=== PATIENT | male | born 1950 | race Caucasian/White ===

== ENCOUNTER → 2016-03-30 | Outpatient (CLI) | payer MEDICARE ==
[2016-03-30 16:25] LABS: Basophils % (A) 1 %; CH 28.7; CHCM 31.6; Eosinophils # (A) 0.2 k/uL (0-0.7); Eosinophils % (A) 4 %; HCT 40.8 % (39.0-53.0); HDW 2.46; Luc # (Auto) 0.17; Luc % (Auto) 3; Lymphocytes # (A) 1.7 k/uL (1.0-4.8); Lymphocytes % (A) 27 %; MCH 29.1 pg (25.0-35.0); MCHC 31.9 g/dL (31.0-37.0); MCV 91.2 fL (80.0-100.0); Mean Platelet Volume 6.7; Monocytes # (A) 0.5 k/uL (0-1.0); Monocytes % (A) 7 %; Neutrophils # (A) 3.7 k/uL (1.3-7.7); Neutrophils % (A) 59 %; RBC 4.48 m/uL (4.30-5.90); RDW 14.2 % (11.5-15.5); WBC 6.2 k/uL (3.8-10.6); WBC (Perox) 6.43
[2016-03-30 16:33] LABS: INR 1.1 (<1.1); Partial Thromboplastin Time 22.7 sec (22.0-30.0); Potassium 4.2 mmol/L (3.5-5.1); Prothrombin Time 10.9 sec (9.0-12.0)
== END | disposition home or self-care (01) ==
LOC: LABPAT 15:57
PROVIDERS: ATTEND Orthopaedic Surgery
DX: Z01.812 Encounter for preprocedural laboratory examination (principal); Z01.810 Encounter for preprocedural cardiovascular examination
CPT/HCPCS: 80051; 85025; 85610; 85730; 86850; 86900; 86901; 87070

== ENCOUNTER 2016-04-12 08:27 | Inpatient (IN) | payer MEDICARE ==
[2016-04-08 16:29] VITALS: BMI 36.9
--- NOTE | 2016-04-11 12:12 | HP ---
DATE OF ADMISSION: 04/12/2016 Anselmo Lunsford is a 65-year-old patient seen with symptomatic left hip osteoarthritis. After having treatment options discussed, he elected to proceed with left total hip arthroplasty. Consent regarding the procedure was obtained. Medical clearance has been recently provided for her recent surgery by Dr. Rivera. Past medical history is asthma, hypertension, insulin-dependent diabetes, hyperlipidemia. PAST SURGICAL HISTORY: Right total knee arthroplasty. DAILY MEDICATIONS: Lantus insulin, hydrochlorothiazide, aspirin, metoprolol, atorvastatin, Benicar. ALLERGIES: PENICILLIN. SOCIAL HISTORY: Patient denies tobacco use. Physical evaluation of the left hip: Range of motion is very limited with severe pain. There is diffuse tenderness about the hip girdle. There is diffuse weakness about the hip girdle. Impingement sign is positive. Straight-leg raise is negative. Left lower extremity is approximately 1 inch shorter than the right. Distal neurovascular exam is intact. Radiographs of the left hip revealed severe osteoarthritic changes. IMPRESSION: Left hip osteoarthritis. PLAN: Direct anterior left total hip arthroplasty.
[~2016-04-12 08:27] MED LIST: ACETAMINOPHEN TAB 500 MG TAB PO ONE; DEXAMETHASONE SOD PHOSPHATE 10 MG/ML 1 ML VIAL IV ONE; HYDROmorphone 1 MG/ML 1 ML SYRINGE IVP PRN; LACTATED RINGERS 1,000 ML IV SCH; MELOXICAM 7.5 MG TAB PO ONE; MIDAZOLAM 2 MG/2 ML VIAL IV PRN; ONDANSETRON 4 MG/2 ML VIAL IVP ONE; TRANEXAMIC ACID 1,000 MG in SODIUM CHLORIDE 0.9% 100 ML IVPB ONE; ceFAZolin 3 GM in SODIUM CHLORIDE 0.9% 100 ML IVPB ONE
[2016-04-12] MEDS ORDERED: LIDOCAINE 1% 20 ML VIAL (10MG/ML) FOR IV START INTRADERMA ONE (09:03)
[2016-04-12 09:10] LABS: Glucose,Whole Blood 131 mg/dL (75-99)
[2016-04-12] MEDS ORDERED: ROPIVACAINE 246.25 MG, EPINEPHrine 0.5 MG, KETOROLAC 30 MG, cloNIDine HCL/PF 80 MCG, WA... MISCELLANE ONE ×5 (10:02)
[2016-04-12] MEDS ORDERED: PHENYLEPHRINE-0.9% NACL SYG 1 MG/10 ML SYRINGE ONE (10:50)
[2016-04-12] MEDS ORDERED: ePHEDrine 50 MG/ML 1 ML AMP ONE (10:50)
[2016-04-12] MEDS ORDERED: fentaNYL (PF) 50 MCG/ML 2 ML AMP ONE (10:50)
[2016-04-12] MEDS ORDERED: MIDAZOLAM 2 MG/2 ML VIAL ONE (10:50)
[2016-04-12] MEDS ORDERED: PROPOFOL 10 MG/ML 20 ML VIAL IV ONE (10:50)
[2016-04-12] MEDS ORDERED: CLINDAMYCIN 1,800 MG in SODIUM CHLORIDE 0.9% IRRIGATIO 3,000 ML IRRIGATION ONE (11:15)
[2016-04-12] MEDS ORDERED: LACTATED RINGERS 1,000 ML IV ONE ×2 (12:10→12:40)
--- NOTE | 2016-04-12 13:14 | FL ---
Fluoroscopy HISTORY: Pain 26 seconds fluoroscopy time supplied to the referring clinician. 1 intraoperative C-arm images docum ent the procedure. See dictated report from orthopedic surgery.
--- NOTE | 2016-04-12 13:14 | XR ---
Limited left hip HISTORY: Anterior hip replacement Single intraoperative C-arm image documents the procedure
[2016-04-12] MEDS ORDERED: NALOXONE 0.4 MG/ML 1 ML VIAL IV PRN (13:32)
[2016-04-12] MEDS ORDERED: ONDANSETRON 4 MG/2 ML VIAL IVP PRN (13:32)
[2016-04-12] MEDS ORDERED: HYDROcodone/APAP 7.5-325MG 1 EACH TAB PO PRN (13:32)
[2016-04-12] MEDS ORDERED: HYDROmorphone 1 MG/ML 1 ML SYRINGE IVP PRN ×3 (13:32)
--- NOTE | 2016-04-12 13:32 | P.OP ---
Date of Procedure: 04/12/16 (Left hip osteoarthritis) Preoperative Diagnosis: Left hip osteoarthritis Postoperative Diagnosis: Left hip osteoarthritis Procedure(s) Performed: Direct anterior left total hip arthroplasty Implants: 1. Depuy Corail cementless femoral stem KLA size 12 high offset collared 2. Depuy pinnacle acetabular shell 62 mm 3. Depuy pinnacle polyethylene acetabular liner 36 mm ID - 62 mm OD 4. Depuy metallic femoral head 36 mm -2 Anesthesia: local, spinal Surgeon: Javier Garvey Director Payment #1: Rodolfo Horta Estimated Blood Loss (ml): 450 Pathology: other (Femoral head) Condition: stable Disposition: PACU Indications for Procedure: 65-year-old patient seen with left hip osteoarthritis. After having treatment options discussed, he elected to proceed with left total hip arthroplasty. Operative Findings: See description of procedure Description of Procedure: The patient was taken to the operative suite. Patient underwent a spinal anesthetic by the department of anesthesia. Patient was then transferred to the [place] table. Patient was given preoperative IV antibiotics and TXA. Both lower extremities were placed in standard leg spars. The hip was then prepped and draped in the normal sterile orthopedic fashion. A standard anterior incision was made beginning 3 cm lateral and 1 cm distal to the ASIS extending 10 cm. Dissection was then carried down through the subcutaneous soft tissues down to the fascia overlying the tensor fascia mathew. An incision was now made through the fascia. Careful dissection was taken down exposing the tensor fascia mathew muscle. A Cobra retractor was now placed along the medial femoral neck and a second one along the lateral femoral neck. The venous circumflex vessels were now identified, cauterized and clipped. We identified the anterior hip capsule. An incision was made through the hip capsule along the lateral border. Tag sutures were then placed along the anterior capsule and lateral capsule. We then performed a capsulotomy. Retractors were now placed around the femoral neck itself. A Cobra retractor was now placed along the anterior acetabulum. Good exposure was now noted of the femoral head/neck complex. Residual labrum was debrided out. We placed the extremity into 3 turns of fine traction. We were then able to introduce a skid in between the femoral head and acetabulum. A placed a awl into the femoral head. We took 2 turns of traction off the extremity. Rotation was now released. The femoral head was then dislocated without difficulty. Additional releasing was performed of the capsule. The head was then reduced. All traction was released. A femoral neck cut was now made with a sagittal saw. It was completed with an osteotome at the lateral neck area. The femoral head was now removed without difficulty. There was severe osteoarthritis of the femoral head and acetabulum. The extremity was now rotated to 60 of external rotation. It was locked in position. Residual labrum was now debrided out. Serial reaming was performed of the acetabulum. Once we reached the appropriate size and a trial was position and fit nicely. The appropriate size was now chosen opened and made available. The wound was irrigated with pulse lavage mechanical irrigation. It was introduced into the acetabulum without difficulty. The C-arm/fluoroscopy was now brought into the operative field. We made sure we had a true AP pelvic view. We now under direct C-arm/ fluoroscopy introduced into the acetabular component with appropriate version and inclination. It was well seated and stable. The C-arm was pulled back. An appropriate liner was introduced and clicked into position. It was felt to be stable. At this point retractors were removed. The extremity was now placed into 120 external rotation with no traction. The leg was now dropped to the ground and adducted. Appropriate retractors were now positioned along the proximal femur. We also placed our femoral look into position. Additional capsular releasing was performed to gain access to the proximal femur. We now used a box osteotome. A canal finder was now utilized. Serial broaching was now performed until we reached the appropriate size with good overall rotational stability. Appropriate calcar planing was performed. A trial head/ neck was placed into position. The hip was now reduced. The C-arm/fluoroscopy was brought back into the operative field. A spot film was obtained of the nonoperative hip. A spot film was obtained of the trial components. Overlays were performed, we noted good overall alignment and positioning for determining leg length. The C-arm/fluoroscopy was pulled back. Retractors were repositioned and the hip was dislocated. The leg was again taken down to the ground and adducted. Appropriate retractors were repositioned as well as the femoral hook. All trial components were removed. The wound was irrigated with pulse lavage mechanical irrigation. The deep soft tissues were infiltrated local analgesic. The femoral implant was opened along with the femoral head. The femoral implant was introduced with good purchase and fixation noted. The femoral head was introduced with good positioning and fixation noted. Retractors were now removed. The hip was now reduced. There appeared be good positioning of the hip. This was confirmed on fluoroscopy and spot images were obtained to document this. A second gram of TXA was given. Bipolar cautery had been utilized intermittently through the procedure for hemostasis. The wound was irrigated copiously with pulse lavage mechanical irrigation. Superficial soft tissues with local analgesic. The fascia was repaired with Vicryl suture. The subcutaneous soft tissues were repaired in layers with Vicryl suture. The skin was approximated with pernio/Dermabond. Sterile dressings were applied. Patient was then awakened, transferred to a bed and taken to recovery in stable condition. Franki ORELLANA assisted with the procedure.
[2016-04-12] MEDS: LACTATED RINGERS 1,000 ML IV SCH ×2 (14:06→21:44)
[2016-04-12 16:25] LABS: Glucose,Whole Blood 205 mg/dL (75-99)
--- NOTE | 2016-04-12 16:44 | P.CONS ---
History of Present Illness - Reason for Consult Consult date: 04/12/16 Medical management - Chief Complaint Direct anterior total hip arthroplasty on the left - History of Present Illness Patient is 65-year-old male well-known to my practice who presented to 2016 with for elective total hip arthroplasty. Patient has a previous history of diabetes, hypertension and mild benign prostatic enlargement patient also recently underwent a believe a right total knee As of this time he is resting comfortably in the bed. In no pain. He does have what looks like a femoral block. His blood pressure at this time was 121/ 78 his initial glucose screen was 131 and postoperatively was 205 Review of Systems Constitutional: Reports as per HPI Cardiovascular: Reports as per HPI Respiratory: Reports as per HPI Gastrointestinal: Reports as per HPI Genitourinary: Reports as per HPI Musculoskeletal: Reports as per HPI Past Medical History Past Medical History: Diabetes Mellitus, Hyperlipidemia, Hypertension Additional Past Medical History / Comment(s): chronic cough, HAS HAD A SHINGLES VACCINE 1-2 YEARS AGO History of Any Multi-Drug Resistant Organisms: None Reported Past Surgical History: Hernia Repair, Joint Replacement, Orthopedic Surgery Additional Past Surgical History / Comment(s): rt knee meniscus repair, left leg orif with screws, 12-22-15 total rt knee Past Anesthesia/Blood Transfusion Reactions: No Reported Reaction Past Psychological History: No Psychological Hx Reported Smoking Status: Former smoker Past Alcohol Use History: Occasional Additional Past Alcohol Use History / Comment(s): quit 1975, smoked less than 1ppd for approx 5yrs Past Drug Use History: None Reported - Past Family History Father Family Medical History: Cancer Additional Family Medical History / Comment(s): lung Mother Family Medical History: Asthma, Diabetes Mellitus Medications and Allergies Home Medications Medication Instructions Recorded Confirmed Type Atorvastatin [Lipitor] 10 mg PO DAILY 12/18/15 04/12/16 History Hydrochlorothiazide 50 mg PO DAILY 12/18/15 04/12/16 History [Hydrochlorothiazide] Insulin Aspart [NovoLOG Flexpen] 16 unit SQ AC-TID 12/18/15 04/12/16 History Insulin Glargine,Hum.rec.anlog 60 unit SQ BID 12/18/15 04/12/16 History [Lantus Solostar] Metoprolol Tartrate [Metoprolol 50 mg PO DAILY 12/18/15 04/12/16 History Tartrate] Olmesartan [Benicar] 20 mg PO DAILY 12/18/15 04/12/16 History metFORMIN HCL 1,000 mg PO BID 12/22/15 04/12/16 History Aspirin [Adult Low Dose Aspirin EC] 81 mg PO DAILY 04/08/16 04/08/16 History Allergies Allergy/AdvReac Type Severity Reaction Status Date / Time Penicillins Allergy Unknown Verified 12/18/15 15:27 Childhood Physical Exam Osteopathic Statement: *. No significant issues noted on an osteopathic structural exam other than those noted in the History and Physical/Consult. Vitals: Vital Signs Temp Pulse Pulse Resp BP Pulse Ox 04/12/16 14:28 95 18 102/56 94 L 04/12/16 14:16 97 18 104/58 95 04/12/16 14:00 95 18 92/52 96 04/12/16 13:45 94 18 100/57 96 04/12/16 13:39 97.8 F 93 18 106/58 93 L 04/12/16 09:07 97.5 F L 80 18 126/75 100 Intake and Output 04/12/16 04/12/16 04/12/16 06:59 14:59 22:59 Intake Total 3501 Output Total 580 Balance 2921 Intake: IV 3501 Output: Urine 130 Estimated Blood Loss 450 Other: Voiding Method Indwelling Catheter Weight 127.006 kg Patient Weight 04/13/16 06:59 Weight 127.006 kg General: [Patient awake, alert and oriented times 3. Patient in no acute distress. Morbidly obese HEENT: [PERRL. EOMI. No pharyngeal erythema or exudate.] Neck: [No adenopathy.] Cardiac: [Heart regular in rate and rhythm. No S3. No S4. No clicks, rubs. No murmur.] Lungs: [Clear to auscultation bilaterally.] Abdomen: [No mass. No organomegaly. Bowel sounds presnt and normoactive in all 4 quadrants.] Extremes: Left total hip anterior total hip has a wound covering femoral block is in place patient has limited her no pain Musculoskeletal: [No joint erythema, edema or tenderness.] Skin: [No rash.] Neurologic: [No lateralizing deficits. CN II - XII grossly intact.] Lymphatic: [No adenopathy.] Results Labs: Abnormal Lab Results - Last 24 Hours (Table) 04/12/16 04/12/16 Range/Units 09:04 16:24 POC Glucose (mg/dL) 131 H 205 H (75-99) mg/dL Assessment and Plan (1) Osteoarthritis of left hip Narrative/Plan: Patient underwent left hip anterior arthroplasty successfully patient currently has no pain or limited pain Currently has a femoral block in History of type 2 diabetes well controlled history of hypertension well controlled history of hypercholesterolemia well-controlled Status: Acute
[2016-04-12 17:36] VITALS: RESP 16
[2016-04-12] MEDS: traMADol 50 MG TAB PO SCH ×2 (17:47→21:32)
[2016-04-12] MEDS: ceFAZolin 3 GM in SODIUM CHLORIDE 0.9% 100 ML IVPB SCH (17:48)
[2016-04-12] MEDS: INSULIN LISPRO (humaLOG) 300 UNIT/3 ML VIAL SQ SCH ×2 (17:48→21:33)
[2016-04-12] MEDS ORDERED: SENNOSIDES-DOCUSATE SODIUM 1 EACH TAB PO SCH (21:00)
[2016-04-12 21:10] LABS: Glucose,Whole Blood 266 mg/dL (75-99)
[2016-04-12] MEDS: metFORMIN 500 MG TAB PO SCH (21:30)
[2016-04-12] MEDS: INSULIN GLARGINE 100 UNIT/ML 10 ML VIAL SQ SCH (21:36)
[2016-04-12] MEDS: hydrOXYzine PAMOATE 25 MG CAP PO PRN (23:37)
[2016-04-12] MEDS: HYDROcodone/APAP 7.5-325MG 1 EACH TAB PO PRN (23:37)
[2016-04-13] MEDS: ceFAZolin 3 GM in SODIUM CHLORIDE 0.9% 100 ML IVPB SCH (03:15)
[2016-04-13] MEDS: HYDROcodone/APAP 7.5-325MG 1 EACH TAB PO PRN ×2 (06:12→13:56)
[2016-04-13] MEDS: hydrOXYzine PAMOATE 25 MG CAP PO PRN (06:12)
[2016-04-13 07:06] LABS: Anion Gap 11 mmol/L; Blood Urea Nitrogen 22 mg/dL (9-20); Calcium 8.6 mg/dL (8.4-10.2); Carbon Dioxide 24 mmol/L (22-30); Chloride 102 mmol/L (98-107); Glucose 154 mg/dL (74-99); Non-African American GFR(MDRD) >60 (>60 ml/min/1.73 sqM); Potassium 4.6 mmol/L (3.5-5.1); Sodium 137 mmol/L (137-145)
[2016-04-13 07:29] LABS: Basophils % (A) 0 %; CH 29.1; Eosinophils % (A) 0 %; HCT 32.8 % (39.0-53.0); HDW 2.35; HGB 10.7 gm/dL (13.0-17.5); Luc # (Auto) 0.16; Luc % (Auto) 2; Lymphocytes # (A) 0.9 k/uL (1.0-4.8); Lymphocytes % (A) 10 %; MCH 29.7 pg (25.0-35.0); MCHC 32.5 g/dL (31.0-37.0); MCV 91.3 fL (80.0-100.0); Mean Platelet Volume 7.5; Monocytes # (A) 0.5 k/uL (0-1.0); Monocytes % (A) 6 %; Neutrophils # (A) 7.6 k/uL (1.3-7.7); Neutrophils % (A) 82 %; RDW 14.6 % (11.5-15.5); WBC 9.3 k/uL (3.8-10.6); WBC (Perox) 8.63
[2016-04-13 07:40] LABS: Glucose,Whole Blood 152 mg/dL (75-99)
[2016-04-13] MEDS: INSULIN GLARGINE 100 UNIT/ML 10 ML VIAL SQ SCH (07:45)
[2016-04-13] MEDS: INSULIN LISPRO (humaLOG) 300 UNIT/3 ML VIAL SQ SCH ×2 (07:46→13:03)
[2016-04-13] MEDS: metFORMIN 500 MG TAB PO SCH (07:48)
[2016-04-13 08:54] LABS: Hemoglobin A1C 7.2 % (4.2-6.1)
[2016-04-13] MEDS ORDERED: LOSARTAN 50 MG TAB PO SCH (09:00)
[2016-04-13] MEDS ORDERED: ATORVASTATIN 10 MG TAB PO SCH (09:00)
[2016-04-13] MEDS ORDERED: FAMOTIDINE 20 MG TAB PO SCH (09:00)
[2016-04-13] MEDS ORDERED: METOPROLOL TARTRATE 50 MG TAB PO SCH (09:00)
[2016-04-13] MEDS ORDERED: HYDROCHLOROTHIAZIDE 50 MG TAB PO SCH (09:00)
[2016-04-13] MEDS ORDERED: MELOXICAM 7.5 MG TAB PO SCH (09:00)
[2016-04-13] MEDS ORDERED: ENOXAPARIN 40 MG/0.4 ML SYRINGE SQ SCH (09:00)
[2016-04-13] MEDS: traMADol 50 MG TAB PO SCH ×2 (09:45→13:03)
[2016-04-13 11:21] LABS: Glucose,Whole Blood 181 mg/dL (75-99)
[2016-04-13] MEDS ORDERED: MULTIVITAMINS, THERA 1 EACH TAB PO SCH (12:00)
[2016-04-13 14:13] VITALS: BP 121/75; PULSE 77; TEMP 97.9
--- NOTE | 2016-04-13 14:16 | P.PN ---
Subjective Principal diagnosis: Osteoarthritis of left hip Patient is 65-year-old male, patient of Dr. Rivera in the outpatient setting, who presented on 04/12/2014 for elective total left hip arthroplasty. Patient is evaluated on the surgical unit where he is postop day #1. Patient is sitting up in the chair. Patient is doing well. Denies chills, fevers, nausea, vomiting, shortness of breath, chest pain, or abdominal pain. Left hip pain controlled. Patient tolerating diet. Geronimo catheter has just been discontinued and patient is due to void. Afebrile. Blood pressure 109/58. Objective - Vital Signs Vital signs: Vital Signs Temp 97.6 F 04/13/16 07:00 Pulse 88 04/13/16 07:00 Resp 16 04/13/16 07:00 BP 109/58 04/13/16 07:00 Pulse Ox 96 04/13/16 07:00 Intake & Output 04/12/16 04/13/16 04/13/16 18:59 06:59 18:59 Intake Total 4101 820 360 Output Total 580 825 Balance 3521 -5 360 Weight 127.006 kg Intake: IV 3501 820 Lactated Ringers 1,000 ml 720 @ 80 mls/hr IV .[id number] [facility] Rx#:[id number] ceFAZolin 3 gm In Sodium 100 Chloride 0.9% 100 ml @ 100 mls/hr IVPB Q8H [facility] Rx#:[id number] Oral 600 360 Output: Urine 130 825 Uretheral (Geronimo) 350 Estimated Blood Loss 450 Other: Voiding Method Indwelling Catheter # Voids 1 - Exam GENERAL: Pt awake and alert, well-appearing, well-nourished, and in no acute distress. HEAD: Atraumatic, normocephalic. EYES: Pupils equal and round. Sclera anicteric, conjunctiva are normal. ENT: Moist mucous membranes. NECK: Supple without lymphadenopathy or JVD. LUNGS: Breath sounds clear to auscultation bilaterally. No wheezes, rales, or rhonchi. HEART: Heart S1, S2, no S3 or S4. Regular rate and rhythm. No murmurs, rubs or gallops. ABDOMEN: Soft, nontender, nondistended, normoactive bowel sounds. EXTREMITIES: Palpable peripheral pulses. No edema. No calf tenderness. Incision to left hip dry and intact. NEUROLOGICAL: Pt oriented x 3. No focal deficits. Strength and sensation grossly intact. PSYCH: Normal mood, normal affect. SKIN: Warm, dry, intact. Normal turgor. - Labs CBC & Chem 7: 04/13/16 06:26 04/13/16 06:26 Labs: Abnormal Lab Results - Last 24 Hours (Table) 04/12/16 04/12/16 04/13/16 Range/Units 16:24 21:09 06:26 RBC (4.30-5.90) m/uL Hgb (13.0-17.5) gm/dL Hct (39.0-53.0) % Lymphocytes # (1.0-4.8) k/uL BUN (9-20) mg/dL Glucose (74-99) mg/dL POC Glucose (mg/dL) 205 H 266 H (75-99) mg/dL Hemoglobin A1c 7.2 H (4.2-6.1) % 04/13/16 04/13/16 04/13/16 Range/Units 06:26 06:26 07:38 RBC 3.60 L (4.30-5.90) m/uL Hgb 10.7 L (13.0-17.5) gm/dL Hct 32.8 L (39.0-53.0) % Lymphocytes # 0.9 L (1.0-4.8) k/uL BUN 22 H (9-20) mg/dL Glucose 154 H (74-99) mg/dL POC Glucose (mg/dL) 152 H (75-99) mg/dL Hemoglobin A1c (4.2-6.1) % 04/13/16 Range/Units 11:17 RBC (4.30-5.90) m/uL Hgb (13.0-17.5) gm/dL Hct (39.0-53.0) % Lymphocytes # (1.0-4.8) k/uL BUN (9-20) mg/dL Glucose (74-99) mg/dL POC Glucose (mg/dL) 181 H (75-99) mg/dL Hemoglobin A1c (4.2-6.1) % Assessment and Plan Plan: Impression and plan: 1. Osteoarthritis of left hip status post total left hip arthroplasty on 2016. 2. Type 2 diabetes mellitus, well-controlled. 3. History of hypertension, well-controlled. 4. History of hypercholesterolemia, well-controlled. From a medical standpoint, patient states for discharge when cleared by orthopedic service. Patient will follow-up with Dr. Rivera in the office in 2 weeks. The above impression and plan have been discussed and directed by Dr. Benavides. Tee RAJAN acting as scribe for Dr. Benavides.
--- NOTE | 2016-04-13 14:19 | P.PN ---
Subjective Principal diagnosis: Status post left total hip arthroplasty Patient seen today resting his hospital chair, he appears comfortable. Pain is well-controlled. Urinary catheter is been removed, examined sitting well. Patient denies headaches, lightheadedness, chest pain, shortness of breath. Objective - Vital Signs Vital signs: Vital Signs Temp 97.9 F 04/13/16 14:13 Pulse 77 04/13/16 14:13 Resp 16 04/13/16 14:13 BP 121/75 04/13/16 14:13 Pulse Ox 98 04/13/16 14:13 Intake & Output 04/12/16 04/13/16 04/13/16 18:59 06:59 18:59 Intake Total 4101 820 840 Output Total 580 825 Balance 3521 -5 840 Weight 127.006 kg Intake: IV 3501 820 Lactated Ringers 1,000 ml 720 @ 80 mls/hr IV .[id number] [facility] Rx#:[id number] ceFAZolin 3 gm In Sodium 100 Chloride 0.9% 100 ml @ 100 mls/hr IVPB Q8H [facility] Rx#:[id number] Oral 600 840 Output: Urine 130 825 Uretheral (Geronimo) 350 Estimated Blood Loss 450 Other: Voiding Method Indwelling Catheter # Voids 1 - Exam Left lower extremity: Incision is clean, dry and intact. Anterior posterior Arms of the upper leg are soft, calf is supple, no tenderness with palpation. Plantar flexion, dorsiflexion, EHL, FHL are intact. Sensory exam to light touch throughout the extremities intact. Cap refills less than 3 seconds. - Labs CBC & Chem 7: 04/13/16 06:26 04/13/16 06:26 Labs: Abnormal Lab Results - Last 24 Hours (Table) 04/12/16 04/12/16 04/13/16 Range/Units 16:24 21:09 06:26 RBC (4.30-5.90) m/uL Hgb (13.0-17.5) gm/dL Hct (39.0-53.0) % Lymphocytes # (1.0-4.8) k/uL BUN (9-20) mg/dL Glucose (74-99) mg/dL POC Glucose (mg/dL) 205 H 266 H (75-99) mg/dL Hemoglobin A1c 7.2 H (4.2-6.1) % 04/13/16 04/13/16 04/13/16 Range/Units 06:26 06:26 07:38 RBC 3.60 L (4.30-5.90) m/uL Hgb 10.7 L (13.0-17.5) gm/dL Hct 32.8 L (39.0-53.0) % Lymphocytes # 0.9 L (1.0-4.8) k/uL BUN 22 H (9-20) mg/dL Glucose 154 H (74-99) mg/dL POC Glucose (mg/dL) 152 H (75-99) mg/dL Hemoglobin A1c (4.2-6.1) % 04/13/16 Range/Units 11:17 RBC (4.30-5.90) m/uL Hgb (13.0-17.5) gm/dL Hct (39.0-53.0) % Lymphocytes # (1.0-4.8) k/uL BUN (9-20) mg/dL Glucose (74-99) mg/dL POC Glucose (mg/dL) 181 H (75-99) mg/dL Hemoglobin A1c (4.2-6.1) % Assessment and Plan Plan: Assessment: #1. Postop day #1 status post left total hip arthroplasty Plan: 1. Pain control, will be discharged home on oral medications 2. Daily dressing changes, ice and elevate 3. Will have home therapy at discharge 4. GI and DVT prophylaxis, we'll discharge home on Xarelto 10 mg 5. Medical recommendations 6. Discharge planning: Patient will be discharged home today Time with Patient: Less than 30
--- NOTE | 2016-04-13 14:22 | P.DS ---
Providers Date of admission: 04/12/16 08:27 Expected date of discharge: 04/13/16 Attending physician: Javier Garvey Consults: 04/12/16 13:32 Consult Physician Routine Consulting Provider: Natanael Rivera Jr Consult Reason/Comments: Medical management Do you want consulting provider notified?: Yes Primary care physician: Natanael Rivera [facility] Course: Date of admission: 04/12/2016 Date of discharge: 04/13/2016 Admission diagnosis: Status post left total hip arthroplasty Discharge diagnosis: Same Attending physician: Dr. Garvey Surgical procedures: Left total hip arthroplasty Brief history: Patient is a 65-year-old male with a history of progressive left primary hip osteoarthritis. At this point patient has failed conservative treatment measures and has opted to proceed with a elective left total hip arthroplasty. Hospital course: Details of patient's surgery can be found in operative report. Patient tolerated the procedure well and was subsequently transported to orthopedic floor. Patient's orthopeidc and medical care was provided daily. Patient had daily laboratory tests performed for evaluation of overall blood counts. Patient had daily physical therapy to include strengthening range of motion as well as education with walker ambulation. Patient had daily CPM usage as part of their physical therapy program. Patient was treated with Lovenox for their postoperative DVT prophylaxis during their inpatient stay. Patient was noted to have a relatively uneventful postoperative course. Patient reported satisfactory pain control with oral pain medications by postoperative day 0. Patient showed satisfactory progress with physical therapy. Patient moved steadily through the program and had no difficulty meeting the goals by postoperative day 1. Given patient's otherwise satisfactory course and having met physical therapy goals, plan is to discharge patient to home on postoperative day 1. Discharge condition/disposition: Patient will be discharged home in stable condition. Discharge medications: Instructions are given on resumption of patient's normal daily medications per primary care recommendation, in addition patient will be prescribed Boston 7.5 mg/325 mg, tramadol 50 mg, Colace 100 mg, Xarelto 10 mg. Discharge instructions: 1. Wound care and infection precautions, keep incision dry and covered while showering, no lotions, creams, moisturizers. No soaking, tubs, pools, hottubs. Do not scrub over the incision. 2. Weight-bear as tolerated with walker / cane until follow-up. 3. Ice and elevate when necessary. Do not exceed 20 minutes per hour with ice pack. 4. Utilize compression sleeve until seen at first follow up appointment. 5. Visiting nursing care. 6. Home physical therapy. 7. Pain meds and anticoagulants per prescription. 8. Pain medication has potential to cause constipation. Increase oral fluid and fiber intake. Contact primary care provider if you have not had a bowel movement within 48 hours after discharge 9. No anti-inflammatory medication until discussed at first post operative visit, this including Motrin, Aleve, Mobic, Diclofenac, Aspirin. 10. Follow up in office at 2 weeks postop with Franki Horta PA-C 11. Follow up with your primary care doctor 7-10 days after discharge. 12. Contact [facility] with any questions, . Procedures: Left total hip arthroplasty Patient Condition at Discharge: Good Plan - Discharge Summary New Discharge Prescriptions: Docusate [Colace] 100 mg PO DAILY #20 capsule HYDROcodone/APAP 7.5-325MG [Boston 7.5] 1 - 2 each PO Q6HR PRN #60 tab PRN Reason: Pain Rivaroxaban [Xarelto] 10 mg PO DAILY #28 tab traMADol HCl [Ultram] 50 mg PO Q6H PRN #40 tab PRN Reason: Pain Discharge Medication List Atorvastatin [Lipitor] 10 mg PO DAILY 12/18/15 [History] Hydrochlorothiazide [Hydrochlorothiazide] 50 mg PO DAILY 12/18/15 [History] Insulin Aspart [NovoLOG Flexpen] 16 unit SQ AC-TID 12/18/15 [History] Insulin Glargine,Hum.rec.anlog [Lantus Solostar] 60 unit SQ BID 12/18/15 [ History] Metoprolol Tartrate [Metoprolol Tartrate] 50 mg PO DAILY 12/18/15 [History] Olmesartan [Benicar] 20 mg PO DAILY 12/18/15 [History] metFORMIN HCL 1,000 mg PO BID 12/22/15 [History] Aspirin [Adult Low Dose Aspirin EC] 81 mg PO DAILY 04/08/16 [History] HYDROcodone/APAP 7.5-325MG [Boston 7.5-325] 1 - 2 tab PO Q6H PRN 04/12/16 [ History] Docusate [Colace] 100 mg PO DAILY #20 capsule 04/13/16 [Rx] HYDROcodone/APAP 7.5-325MG [Boston 7.5] 1 - 2 each PO Q6HR PRN #60 tab 04/13/16 [ Rx] Rivaroxaban [Xarelto] 10 mg PO DAILY #28 tab 04/13/16 [Rx] traMADol HCl [Ultram] 50 mg PO Q6H PRN #40 tab 04/13/16 [Rx] Follow up Appointment(s)/Referral(s): Natanael Rivera Jr, DO [Primary Care Provider] - 1 Week Rodolfo Horta PAC [PHYSICIAN [employer]ATFORM [employer]ER MANAGER] - 2 Weeks Activity/Diet/Wound Care/Special Instructions: pick up driver 30day of free Xaralto from pharmacy place. Orthopedic Discharge Instructions: 1. Wound care and infection precautions, keep incision dry and covered while showering, no lotions, creams, moisturizers. No soaking, pools, hot tubs. Do not scrub over incision. 2. Weight-bear as tolerated with walker / cane until follow-up. 3. Ice and elevate when necessary. Do not exceed 20 minutes per hour with ice pack. 4. Utilize compression sleeve until seen at first follow up appointment. 5. Visiting nursing care. 6. Home physical therapy. 7. Pain meds and anticoagulants per prescription. 8. Pain medication has potential to cause constipation. Increase oral fluid and fiber intake. Contact primary care provider if you have not had a bowel movement within 48 hours after discharge. 9. No anti-inflammatory medication until discussed at first post operative visit, this including Motrin, Aleve, Mobic, Diclofenac. 10. Follow up in office at 2 weeks postop with Franki Horta PA-C 11. Follow up with your primary care doctor 7-10 days after discharge. 12. Contact [facility] with any questions, . Discharge Disposition: HOME WITH HOME HEALTH SERVICES
[2016-04-13] MEDS ORDERED: TEMAZEPAM 15 MG CAP PO PRN (22:00)
== END 2016-04-13 15:36 | disposition home health service (06) | DRG 470 ==
LOC: 2ORMAIN 08:27 → 3SUR 13:46
PROVIDERS: ADMIT Orthopaedic Surgery; ATTEND Orthopaedic Surgery
PROC: 0SRB02A Replacement of Left Hip Joint with Metal on Polyethylene Synthetic Substitute, Uncemented, Open Approach (ICD-10-PCS; principal; 2016-04-12 10:20)
DX: M16.12 Unilateral primary osteoarthritis, left hip (principal); I10 Essential (primary) hypertension; E11.9 Type 2 diabetes mellitus without complications; E78.00 Pure hypercholesterolemia, unspecified; E78.5 Hyperlipidemia, unspecified; J45.909 Unspecified asthma, uncomplicated; N40.0 Benign prostatic hyperplasia without lower urinary tract symptoms; Z79.4 Long term (current) use of insulin; Z79.82 Long term (current) use of aspirin; Z87.891 Personal history of nicotine dependence; Z88.0 Allergy status to penicillin; Z79.899 Other long term (current) drug therapy
CPT/HCPCS: 73501; 80048; 83036; 85025; 86850; 86900; 86901; 88300

== ENCOUNTER → 2016-11-23 | Outpatient (CLI) | payer MEDICARE ==
--- NOTE | 2016-11-23 08:15 | CT ---
EXAMINATION TYPE: CT chest wo con DATE OF EXAM: 11/23/2016 COMPARISON: NONE HISTORY: Cough CT DLP: 979.[address] of the chest was performed with lung and mediastinal window settings submitted. The la ck of contrast limits evaluation of the vascular, mediastinal and parenchymal structures including th e upper abdomen. LUNGS: The lungs are clear and free of infiltrate. No atelectasis. No pulmonary nodule or mass is de tected. No pleural effusion. No CT evidence of interstitial lung disease. MEDIASTINUM/STEPHANIE: Thoracic aorta is of normal caliber with limited evaluation given lack of contrast . The heart is not enlarged. No evidence for mediastinal mass. No lymph nodes greater than 1cm. UPPER ABDOMEN: Hypoattenuating lesion posterior segment right hepatic lobe may reflect a cyst. Consid er ultrasound correlation. OTHER: No significant other abnormality. IMPRESSION: 1. No significant abnormality of the chest.
== END ==
LOC: RADCTMAIN 07:07
PROVIDERS: ATTEND Family Medicine
DX: R05 Cough (principal)
CPT/HCPCS: 71250

== ENCOUNTER → 2019-08-06 | Outpatient (CLI) | payer MEDICARE ==
[2019-08-06 10:53] LABS: Basophils % (A) 0 %; Eosinophils # (A) 0.2 k/uL (0-0.7); Eosinophils % (A) 2 %; HCT 45.4 % (39.0-53.0); HGB 14.2 gm/dL (13.0-17.5); Lymphocytes # (A) 1.5 k/uL (1.0-4.8); Lymphocytes % (A) 22 %; MCH 29.4 pg (25.0-35.0); MCHC 31.2 g/dL (31.0-37.0); MCV 94.4 fL (80.0-100.0); Mean Platelet Volume 7.4; Monocytes # (A) 0.5 k/uL (0-1.0); Monocytes % (A) 7 %; Neutrophils # (A) 4.4 k/uL (1.3-7.7); Neutrophils % (A) 65 %; Platelet Count 227 k/uL (150-450); RBC 4.81 m/uL (4.30-5.90); RDW 14.1 % (11.5-15.5); WBC 6.7 k/uL (3.8-10.6)
[2019-08-06 11:15] LABS: Potassium 4.7 mmol/L (3.5-5.1)
== END | disposition home or self-care (01) ==
LOC: LABPAT 10:21
PROVIDERS: ATTEND Orthopaedic Surgery
DX: Z01.818 Encounter for other preprocedural examination (principal); G56.01 Carpal tunnel syndrome, right upper limb
CPT/HCPCS: 36415; 80051; 85025

== ENCOUNTER → 2019-08-22 | Day surgery (SDC) | payer MEDICARE ==
[2019-08-16 13:06] VITALS: BMI 42.2
--- NOTE | 2019-08-21 15:23 | HP ---
HISTORY AND PHYSICAL DATE OF SURGERY: 08/22/2019 Anselmo Lunsford is a 69-year-old patient seen with symptomatic right carpal tunnel syndrome. We discussed options of post decompression, right median nerve. Consent was obtained. PAST MEDICAL HISTORY: Hypertension, asthma, hyperlipidemia, [id number] diabetes. PAST SURGICAL HISTORY: Left total knee arthroplasty, left total hip arthroplasty. DAILY MEDICATIONS: Aspirin, atorvastatin, hydrochlorothiazide, metformin, metoprolol, insulin. ALLERGIES: PENICILLIN. SOCIAL HISTORY: Denies tobacco use. PHYSICAL EXAMINATION: Physical evaluation of the right hand/wrist, he has a positive carpal compression and carpal stenosis causing numbness tendon throughout the median nerve distribution. There is decreased sensation throughout the median nerve distribution. He is nontender along the A1 sarah site. There is good perfusion distally. Good radial pulse is present. Radiographs revealed mild osteoarthritic changes. IMPRESSION: 1. Right carpal tunnel syndrome. 2. Insulin-dependent diabetes. 3. Hypertension. 4. Hyperlipidemia. PLAN: Decompression right median nerve. MMODL / IJN: [id number] /
[~2019-08-22] MED LIST changes: -ACETAMINOPHEN TAB 500 MG TAB PO ONE; +BUPIVACAINE (PF) 0.25% 30 ML VIAL SQ ONE; +HYDROmorphone 0.5 MG/0.5 ML SYRINGE IVP PRN; -HYDROmorphone 1 MG/ML 1 ML SYRINGE IVP PRN; +KETAMINE 10 MG/ML 20 ML VIAL ONE; +LACTATED RINGERS 1,000 ML IV ONE; +LIDOCAINE 1% (10MG/ML) FOR IV START INTRADERMA PRN; +LIDOCAINE 1% INJ 10MG/ML (20 ML MDV) ONE; -MELOXICAM 7.5 MG TAB PO ONE; +MIDAZOLAM 2 MG/2 ML VIAL ONE; +ONDANSETRON 4 MG/2 ML VIAL ONE; +PROPOFOL 10 MG/ML 20 ML VIAL IV ONE; -TRANEXAMIC ACID 1,000 MG in SODIUM CHLORIDE 0.9% 100 ML IVPB ONE; +fentaNYL (PF) 50 MCG/ML 2 ML AMP IVP PRN; +fentaNYL (PF) 50 MCG/ML 2 ML AMP ONE
--- NOTE | 2019-08-22 12:41 | P.OP ---
Date of Procedure: 08/22/19 Preoperative Diagnosis: Right carpal tunnel syndrome Postoperative Diagnosis: Right carpal tunnel syndrome Procedure(s) Performed: Decompression right median nerve Anesthesia: MAC, local Surgeon: Javier Garvey Estimated Blood Loss (ml): 1 Indications for Procedure: 69-year-old patient seen with symptomatic right carpal tunnel syndrome. After treatment options were discussed, he elected to proceed with decompression right median nerve. Operative Findings: See description of procedure Description of Procedure: Patient was taken to the operative suite. Patient received preoperative IV antibiotics. Patient underwent IV sedation by the department of anesthesia. A well-padded tourniquet was placed along the proximal right upper extremity. The right upper extremity was prepped and draped in the normal sterile orthopedic fashion. I infiltrated the proposed incision site with 14 mL quarter percent plain Marcaine. When sufficient local analgesia was noted the extremity was elevated and the tourniquet was insufflated to 250. I now made an incision beginning along the distal volar wrist crease extending distally approximately 3 cm in line with the fourth metacarpal sharply through skin. I dissected down through the subcu soft tissues down through the palmar fascia to the transverse carpal ligament. I now made a small incision through transverse carpal ligament. I now completed the release proximally and distally with blunt Metzenbaums. We had complete release of the transverse carpal ligament with good decompression of the nerve. There was good hemostasis. The wound was irrigated. The skin margins were approximated with nylon suture. Sterile dressings were applied. Loose web roll and Lucas bandage were applied. The tourniquet was released with immediate capillary refill of all digits noted. The patient was awakened and transferred to recovery in stable condition.
[2019-08-23 15:35] LABS: Glucose,Whole Blood 179 mg/dL (75-99)
== END | disposition home or self-care (01) ==
LOC: OR 10:25
PROVIDERS: ATTEND Orthopaedic Surgery
DX: G56.01 Carpal tunnel syndrome, right upper limb (principal); I10 Essential (primary) hypertension; E78.5 Hyperlipidemia, unspecified; J45.909 Unspecified asthma, uncomplicated; E11.9 Type 2 diabetes mellitus without complications; Z88.0 Allergy status to penicillin; Z79.82 Long term (current) use of aspirin; Z79.4 Long term (current) use of insulin; Z79.899 Other long term (current) drug therapy; Z96.652 Presence of left artificial knee joint; Z96.642 Presence of left artificial hip joint
CPT/HCPCS: 64721; J2250; J0690; J2001; J3010; J2704

== ENCOUNTER → 2019-10-01 | Outpatient (CLI) | payer MEDICARE ==
[2019-10-01 11:11] LABS: Basophils % (A) 1 %; Eosinophils # (A) 0.2 k/uL (0-0.7); Eosinophils % (A) 2 %; HCT 44.5 % (39.0-53.0); HGB 13.8 gm/dL (13.0-17.5); Lymphocytes # (A) 1.3 k/uL (1.0-4.8); Lymphocytes % (A) 19 %; MCH 29.2 pg (25.0-35.0); MCHC 31.1 g/dL (31.0-37.0); Mean Platelet Volume 7.4; Monocytes # (A) 0.5 k/uL (0-1.0); Monocytes % (A) 7 %; Neutrophils % (A) 70 %; Platelet Count 235 k/uL (150-450); RBC 4.73 m/uL (4.30-5.90); RDW 14.1 % (11.5-15.5); WBC 7.2 k/uL (3.8-10.6)
[2019-10-01 11:21] LABS: Potassium 4.6 mmol/L (3.5-5.1)
== END | disposition home or self-care (01) ==
LOC: LABPAT 10:41
PROVIDERS: ATTEND Orthopaedic Surgery
DX: Z01.818 Encounter for other preprocedural examination (principal); G56.02 Carpal tunnel syndrome, left upper limb
CPT/HCPCS: 36415; 80051; 85025

== ENCOUNTER 2019-10-11 08:43 | Day surgery (SDC) | payer MEDICARE ==
[2019-10-05 09:03] VITALS: BMI 41.5
--- NOTE | 2019-10-10 14:56 | HP ---
HISTORY AND PHYSICAL DATE OF SURGERY: 10/11/2019 Anselmo Lunsford is a 69-year-old patient seen with symptomatic left carpal tunnel syndrome. We discussed options. He elected to proceed with decompression of left median nerve. Consent was obtained. PAST MEDICAL HISTORY: Hypertension, hyperlipidemia, insulin-dependent diabetes, asthma. PAST SURGICAL HISTORY: Right total knee arthroplasty, left total hip arthroplasty, right carpal tunnel release. DAILY MEDICATIONS: Aspirin, atorvastatin, hydrochlorothiazide, Lantus insulin, metformin, metoprolol, Singulair. ALLERGIES: PENICILLIN. SOCIAL HISTORY: Denies current tobacco use. Physical evaluation of the left wrist. He has positive carpal compression and carpal Tinel's which cause exacerbation of numbness and tingling throughout the median nerve distribution. He does have some decreased sensation throughout the median and nerve distribution. There is no tenderness along the A1 sarah sites. He has good range of motion of all his digits. There is good perfusion distally. There is good radial pulse is present. Radiographs of the left wrist reveal some moderate osteoarthritic changes. EMG revealed a carpal tunnel syndrome, which appears severe. IMPRESSION: 1. Left carpal tunnel syndrome. 2. Insulin-dependent diabetes. 3. Hypertension. 4. Hyperlipidemia. 5. Asthma. PLAN: Decompression of left median nerve. MMODL / IJN: [id number] /
[~2019-10-11 08:43] MED LIST changes: -BUPIVACAINE (PF) 0.25% 30 ML VIAL SQ ONE; -KETAMINE 10 MG/ML 20 ML VIAL ONE; -LACTATED RINGERS 1,000 ML IV ONE; -LIDOCAINE 1% (10MG/ML) FOR IV START INTRADERMA PRN; -LIDOCAINE 1% INJ 10MG/ML (20 ML MDV) ONE; -MIDAZOLAM 2 MG/2 ML VIAL IV PRN; -MIDAZOLAM 2 MG/2 ML VIAL ONE; -ONDANSETRON 4 MG/2 ML VIAL ONE; -PROPOFOL 10 MG/ML 20 ML VIAL IV ONE; -fentaNYL (PF) 50 MCG/ML 2 ML AMP IVP PRN; -fentaNYL (PF) 50 MCG/ML 2 ML AMP ONE
[2019-10-11 09:13] VITALS: RESP 16; TEMP 96.8
[2019-10-11] MEDS ORDERED: LIDOCAINE 1% (10MG/ML) FOR IV START INTRADERMA ONE (09:23)
[2019-10-11 09:25] LABS: Glucose,Whole Blood 186 mg/dL (75-99)
[2019-10-11] MEDS ORDERED: ONDANSETRON 4 MG/2 ML VIAL ONE (09:25)
[2019-10-11] MEDS ORDERED: fentaNYL (PF) 50 MCG/ML 2 ML AMP ONE (10:14)
[2019-10-11] MEDS ORDERED: KETAMINE 10 MG/ML 20 ML VIAL ONE (10:14)
[2019-10-11] MEDS ORDERED: PROPOFOL 10 MG/ML 20 ML VIAL IV ONE (10:14)
[2019-10-11] MEDS ORDERED: MIDAZOLAM 2 MG/2 ML VIAL ONE (10:14)
[2019-10-11] MEDS ORDERED: BUPIVACAINE (PF) 0.25% 30 ML VIAL SQ ONE ×2 (10:27)
--- NOTE | 2019-10-11 10:48 | P.OP ---
Date of Procedure: 10/11/19 Preoperative Diagnosis: Left carpal tunnel syndrome Postoperative Diagnosis: Left carpal tunnel syndrome Procedure(s) Performed: Decompression left median nerve Anesthesia: MAC, local Surgeon: Javier Garvey Estimated Blood Loss (ml): 1 Pathology: none sent Condition: stable Disposition: PACU Indications for Procedure: 69-year-old patient seen with symptomatic left carpal tunnel syndrome. After having treatment options discussed, he elected to proceed with decompression. Operative Findings: see description of procedure Description of Procedure: The patient was taken to the operative suite. The patient underwent IV sedation by the department of anesthesia. The patient received preoperative IV antibiotics. A well-padded tourniquet placed proximal left upper extremity. Left upper extremity prepped and draped in the normal sterile orthopedic fashion. The proposed incision site was infiltrated with approximately 15 mL quarter percent plain Marcaine. When sufficient local analgesia was noted the extremity was elevated and the tourniquet was insufflated to 250. I now made an incision beginning at the distal volar wrist crease extending distally approximately 3 cm in line with the fourth metacarpal sharply through skin. I dissected down through the palmar fascia to the transverse carpal ligament. I now incised transverse carpal ligament. I completed the release proximally and distally with blunt Metzenbaums. There was complete release of transcarpal ligament and good decompression of the nerve. We had good hemostasis. The wound was irrigated. Skin margins were proximal nylon suture. Sterile dressings were applied. The tourniquet was released and immediate capillary refill noted. The patient was awakened, transferred to a bed and recovery stable condition.
[2019-10-11 11:36] VITALS: BP 136/70; PULSE 76
== END 2019-10-11 11:47 | disposition home or self-care (01) ==
LOC: OR 08:43
PROVIDERS: ATTEND Orthopaedic Surgery
DX: G56.02 Carpal tunnel syndrome, left upper limb (principal); I10 Essential (primary) hypertension; E78.5 Hyperlipidemia, unspecified; E11.9 Type 2 diabetes mellitus without complications; J45.909 Unspecified asthma, uncomplicated; Z96.651 Presence of right artificial knee joint; Z96.642 Presence of left artificial hip joint; Z98.890 Other specified postprocedural states; Z79.82 Long term (current) use of aspirin; Z79.4 Long term (current) use of insulin; Z79.899 Other long term (current) drug therapy; Z88.0 Allergy status to penicillin; Z87.891 Personal history of nicotine dependence; K21.9 Gastro-esophageal reflux disease without esophagitis; E66.9 Obesity, unspecified; Z68.41 Body mass index [BMI] 40.0-44.9, adult
CPT/HCPCS: 64721; J2250; J1100; J0690; J2405; J3010; J2704

== ENCOUNTER 2022-11-17 13:48 | Emergency (ER) | payer MEDICARE ==
--- NOTE | 2022-11-17 14:08 | ED ---
General Adult HPI - General Source: patient, RN notes reviewed Mode of arrival: ambulatory Limitations: no limitations <Markie Aguilar - Last Filed: 11/17/22 14:06> - History of Present Illness Onset/Timin -: hour(s) Location: right (Flank) Radiation: other (Right lower quadrant) Quality: sharp Consistency: colicky Improves with: none Worsens with: none Associated Symptoms: nausea/vomiting, other (Dark urine) Treatments Prior to Arrival: none <Jimbo Mcadams - Last Filed: 11/23/22 09:01> - General Stated complaint: Back/Abd pain,vomiting Time Seen by Provider: 11/17/22 14:06 - History of Present Illness Initial comments: 72-year-old male presents emergency department with chief complaint of right flank pain. Sudden onset he does admit to nausea vomiting and dark urine. No history kidney stones. (Markie Aguilar) This patient is 72-year-old man who presents with acute onset of right flank pain radiating towards the right lower quadrant and scrotum. The patient states it had started around 4 AM and woke him from sleep. He also had some nausea vomiting and diaphoresis at that time. Patient did not note any hematemesis or coffee grounds. No change in bowel movements. Patient states also that his urine has been darker today. The pain is sharp and seems to come in waves. He has not noted worsening or relieving factors (Jimbo Mcadams) - Related Data Home Medications Medication Instructions Recorded Confirmed Atorvastatin [Lipitor] 10 mg PO DAILY 12/18/15 10/11/19 Insulin Aspart [NovoLOG Flexpen] 20 unit SQ AC-TID 12/18/15 10/11/19 Insulin Glargine,Hum.rec.anlog 68 unit SQ BID 12/18/15 10/11/19 [Lantus Solostar] Metoprolol Tartrate 50 mg PO DAILY 12/18/15 10/11/19 hydroCHLOROthiazide 50 mg PO DAILY 12/18/15 10/11/19 [Hydrochlorothiazide] metFORMIN HCL [Glucophage] 1,000 mg PO BID 12/22/15 10/11/19 Aspirin [Adult Low Dose Aspirin EC] 81 mg PO DAILY 04/08/16 10/05/19 Methyl Folate 0.5 tab PO DAILY 08/16/19 10/05/19 Montelukast Sodium [Singulair] 10 mg PO HS 08/16/19 10/11/19 Multivit-Min/FA/Lycopen/Lutein 1 each PO DAILY 08/16/19 10/05/19 [Centrum Silver Tablet] [place]-3 Fatty Acids/Fish Oil [Fish 1 each PO DAILY 08/16/19 10/05/19 Oil 1,000 mg Softgel] Semaglutide [Ozempic] 0.5 mg SQ WE 08/16/19 10/11/19 Previous Rx's Medication Instructions Recorded HYDROcodone/APAP 5-325MG [[place] 1 tab PO Q6HR PRN 7 Days #28 tab 10/11/19 5-325] HYDROcodone/APAP 5-325MG [[place] 1 tab PO Q4HR PRN 3 Days #18 tab 11/17/22 5-325] Ondansetron Odt [Zofran ODT] 4 mg PO Q8HR PRN #10 tab 11/17/22 Tamsulosin [Flomax] 0.4 mg PO DAILY #14 cap 11/17/22 Allergies Allergy/AdvReac Type Severity Reaction Status Date / Time Penicillins Allergy Unknown Verified 10/05/19 08:55 Childhood Review of Systems ROS Other: All systems not noted in ROS Statement are negative. <Markie Aguilar - Last Filed: 11/17/22 14:06> ROS Other: All systems not noted in ROS Statement are negative. Constitutional: Denies: fever, chills, weakness Respiratory: Denies: cough, dyspnea Cardiovascular: Denies: chest pain, palpitations, edema Gastrointestinal: Reports: abdominal pain, nausea, vomiting. Denies: diarrhea, constipation, hematemesis, melena, hematochezia Genitourinary: Reports: hematuria, testicular pain. Denies: dysuria, frequency, testicular mass Musculoskeletal: Denies: back pain Skin: Denies: rash Neurological: Denies: headache, weakness, numbness <Jimbo Mcadams - Last Filed: 11/23/22 09:01> ROS Statement: Those systems with pertinent positive or pertinent negative responses have been documented in the HPI. Past Medical History Past Medical History: Diabetes Mellitus, Hyperlipidemia, Hypertension Additional Past Medical History / Comment(s): chronic cough, HAS HAD A SHINGLES VACCINE 1-2 YEARS AGO History of Any Multi-Drug Resistant Organisms: None Reported Past Surgical History: Hernia Repair, Orthopedic Surgery Additional Past Surgical History / Comment(s): rt knee meniscus repair, left leg orif with screws, 12-21-16 total rt knee, rt carpal tunnel Past Anesthesia/Blood Transfusion Reactions: No Reported Reaction Past Psychological History: No Psychological Hx Reported Smoking Status: Former smoker - Past Family History Father Family Medical History: Cancer Additional Family Medical History / Comment(s): lung Mother Family Medical History: Asthma, Diabetes Mellitus Brother(s) Family Medical History: Cancer Additional Family Medical History / Comment(s): Pancreatic cancer <Markie Aguilar - Last Filed: 11/17/22 14:06> General Exam Limitations: no limitations <Markie Aguilar - Last Filed: 11/17/22 14:06> Limitations: no limitations General appearance: alert, in no apparent distress Head exam: Present: atraumatic, normocephalic Eye exam: Present: normal appearance. Absent: scleral icterus, conjunctival injection ENT exam: Present: normal oropharynx Neck exam: Present: normal inspection Respiratory exam: Present: normal lung sounds bilaterally. Absent: respiratory distress, wheezes, rales, rhonchi, stridor Cardiovascular Exam: Present: regular rate, normal rhythm, normal heart sounds. Absent: systolic murmur, diastolic murmur, rubs, gallop GI/Abdominal exam: Present: soft. Absent: distended, tenderness, guarding, rebound, rigid, mass Extremities exam: Present: normal inspection, normal capillary refill. Absent: pedal edema, calf tenderness Back exam: Present: normal inspection. Absent: CVA tenderness (R), CVA tenderness (L) Neurological exam: Present: alert Skin exam: Present: warm, dry, intact, normal color. Absent: rash <Jimbo Mcadams - Last Filed: 11/23/22 09:01> - General Exam Comments Initial Comments: Visual Physical Exam Vital signs reviewed General: Well-appearing, nontoxic, no acute distress. Head: Normocephalic, atraumatic Eyes: PERRLA, EOMI ENT: Airway patent Chest: Nonlabored breathing Skin: No visual rash, normal skin tone Neuro: Alert and oriented 3 Musculoskeletal: No gross abnormalities (Markie Aguilar) Course Vital Signs 11/17/22 11/17/22 11/17/22 14:04 15:21 16:08 Temperature 97.6 F Pulse Rate 86 84 85 Respiratory 18 20 20 Rate Blood Pressure 144/72 151/74 152/76 O2 Sat by Pulse 99 99 100 Oximetry 11/17/22 11/17/22 16:55 18:12 Temperature 98.2 F Pulse Rate 80 85 Respiratory 20 20 Rate Blood Pressure 162/80 154/74 O2 Sat by Pulse 100 99 Oximetry Medical Decision Making <Markie Aguilar - Last Filed: 11/17/22 14:06> - Lab Data Result diagrams: 11/17/22 15:07 11/17/22 15:07 <Jimbo Mcadams - Last Filed: 11/23/22 09:01> - Medical Decision Making I performed a quick note portion of this chart signed Markie Aguilar PA-C (Markie Aguilar) The patient has CT of the abdomen and pelvis which I interpreted to show presence of stone in the ureter with associated hydronephrosis. There is also renal mass. Was pt. sent in by a medical professional or institution (ESTEBAN [facility]na, OIL WELL GUN PERFORATOR OPERATOR, urgent care, hospital, or longterm...) When possible be specific @ -[No] Did you speak to anyone other than the patient for history (EMS, parent, family, police, friend...)? What history was obtained from this source @ -[No] Did you review nursing and triage notes (agree or disagree)? Why? @ -[I reviewed and agree with nursing and triage notes] Were old charts reviewed (outside hosp., previous admission, EMS record, old EKG, old radiological studies, urgent care reports/EKG's, longterm records)? Report findings @ -[No old charts were reviewed] Differential Diagnosis (chest pain, altered mental status, abdominal pain women, abdominal pain men, vaginal bleeding, weakness, fever, dyspnea, syncope, headache, dizziness, GI bleed, back pain, seizure, CVA, palpatations, mental health, musculoskeletal)? @ -[Differential Abdominal Pain Men: Appendicitis, cholecystitis, diverticulosis, ischemic bowel, pancreatitis, hepatitis, UTI, gastroenteritis, AAA, incarcerated hernia, bowel obstruction, constipation, inflammatory bowel, hepatitis, peptic ulcer disease, splenic infarction, perforated viscus, testicular torsion, this is not meant to be an all-inclusive list EKG interpreted by me (3pts min.). @ -[As above] X-rays interpreted by me (1pt min.). @ -[None done] CT interpreted by me (1pt min.). @ -[I interpreted as above U/S interpreted by me (1pt. min.). @ -[None done] What testing was considered but not performed or refused? (CT, X-rays, U/S, labs)? Why? @ -[None] What meds were considered but not given or refused? Why? @ -[None] Did you discuss the management of the patient with other professionals (professionals i.e. , PA, OIL WELL GUN PERFORATOR OPERATOR, lab, RT, psych nurse, social media marketing manager, cement paver, teacher, program officer, case specialist)? Give summary @ -[No] Was smoking cessation discussed for >3mins.? @ -[No] Was critical care preformed (if so, how long)? @ -[No] Were there social determinants of health that impacted care today? How? (Homelessness, low income, unemployed, alcoholism, drug addiction, transportation, low edu. Level, literacy, decrease access to med. care, custodial, rehab)? @ -[No] Was there de-escalation of care discussed even if they declined (Discuss DNR or withdrawal of care, Hospice)? DNR status @ -[No] What co-morbidities impacted this encounter? (DM, HTN, Smoking, COPD, CAD, Cancer, CVA, ARF, Chemo, Hep., AIDS, mental health diagnosis, sleep apnea, m orbid obesity)? @ -[None] Was patient admitted / discharged? Hospital course, mention meds given and route, prescriptions, significant lab abnormalities, going to OR and other pertinent info. @ -[Patient is 72-year-old man with flank/abdominal pain, found to have kidney stones/hydronephrosis. There is also concerning renal mass. The patient is feeling better and at this point would like to follow up as outpatient. We discussed the appropriate further care and follow-up as well as return parameters and stressed need to follow-up to have definitive diagnosis of the renal mass Undiagnosed new problem with uncertain prognosis? @ -[No] Drug Therapy requiring intensive monitoring for toxicity (Heparin, Nitro, Insulin, Cardizem)? @ -[No] Were any procedures done? @ -[No] Diagnosis/symptom? @ -[Acute kidney stone. Acute renal mass Acute, or Chronic, or Acute on Chronic? @ -[acute Uncomplicated (without systemic symptoms) or Complicated (systemic symptoms)? @ -[Uncomplicated Side effects of treatment? @ -[No] Exacerbation, Progression, or Severe Exacerbation? @ -[No] Poses a threat to life or bodily function? How? (Chest pain, [place], [place], pneumonia, PE, COPD, DKA, ARF, appy, cholecystitis, CVA, Diverticulitis, Homicidal, Suicidal, threat to staff... and all critical care pts) @ -[yes, undiagnosed renal mass. Percent malignancy and requires further workup (Jimbo Mcadams) - Lab Data Lab Results 11/17/22 11/17/22 11/17/22 Range/Units 15:07 15:07 15:07 WBC 10.8 H (3.8-10.6) k/uL RBC 4.52 (4.30-5.90) m/uL Hgb 14.0 (13.0-17.5) gm/dL Hct 42.2 (39.0-53.0) % MCV 93.4 (80.0-100.0) fL MCH 31.0 (25.0-35.0) pg MCHC 33.2 (31.0-37.0) g/dL RDW 14.1 (11.5-15.5) % Plt Count 217 (150-450) k/uL MPV 7.5 Neutrophils % 93 % Lymphocytes % 4 % Monocytes % 3 % Eosinophils % 0 % Basophils % 0 % Neutrophils # 10.0 H (1.3-7.7) k/uL Lymphocytes # 0.4 L (1.0-4.8) k/uL Monocytes # 0.3 (0-1.0) k/uL Eosinophils # 0.0 (0-0.7) k/uL Basophils # 0.0 (0-0.2) k/uL Sodium 137 (137-145) mmol/L Potassium 4.2 (3.5-5.1) mmol/L Chloride 100 (98-107) mmol/L Carbon Dioxide 23 (22-30) mmol/L Anion Gap 14 mmol/L BUN 24 H (9-20) mg/dL Creatinine 1.16 (0.66-1.25) mg/dL Est GFR (CKD-EPI)AfAm 72 (>60 ml/min/1.73 sqM) Est GFR (CKD-EPI)NonAf 62 (>60 ml/min/1.73 sqM) Glucose 224 H (74-99) mg/dL Calcium 9.5 (8.4-10.2) mg/dL Total Bilirubin 0.9 (0.2-1.3) mg/dL AST 31 (17-59) U/L ALT 33 (4-49) U/L Alkaline Phosphatase 67 (38-126) U/L C-Reactive Protein <0.5 (<1.0) mg/dL Total Protein 7.4 (6.3-8.2) g/dL Albumin 4.4 (3.5-5.0) g/dL Lipase 267 (23-300) U/L Urine Color Brown Urine Appearance Turbid (Clear) Urine pH 5.0 (5.0-8.0) Ur Specific [place] 1.023 (1.001-1.035) Urine Protein 1+ H (Negative) Urine Glucose (UA) 4+ H (Negative) Urine Ketones 2+ H (Negative) Urine Blood Large H (Negative) Urine Nitrite Negative (Negative) Urine Bilirubin Negative (Negative) Urine Urobilinogen <2.0 (<2.0) mg/dL Ur Leukocyte Esterase Negative (Negative) Urine RBC >182 H (0-5) /hpf Urine WBC 3 (0-5) /hpf Urine Mucus Many H (None) /hpf Urine Yeast (Budding) Occasional H (None) /hpf Disposition <Markie Aguilar - Last Filed: 11/17/22 14:06> Is patient prescribed a controlled substance at d/c from ED?: Yes When asked, does pt state using other controlled substances?: No If prescribed controlled substance>3 days was MAPS reviewed?: Prescribed <3 Days If opioid is for acute pain is fill amount 7 days or less?: Yes If Rx opioid, was Start Talking consent form obtained?: Yes <Jimbo Mcadams - Last Filed: 11/23/22 09:01> Clinical Impression: Kidney stone on right side, Right kidney mass Disposition: HOME SELF-CARE Condition: Good Instructions (If sedation given, give patient instructions): Kidney Stones (ED) Additional Instructions: As we discussed, follow with the urologist to have further workup for the kidney mass that was found to ensure this does not represent a cancer Prescriptions: Tamsulosin [Flomax] 0.4 mg PO DAILY #14 cap HYDROcodone/APAP 5-325MG [[place] 5-325] 1 tab PO Q4HR PRN 3 Days #18 tab PRN Reason: Pain Ondansetron Odt [Zofran ODT] 4 mg PO Q8HR PRN #10 tab PRN Reason: Nausea Referrals: Natanael Rivera Jr, DO [Primary Care Provider] - 1-2 days Tyree Perez MD [STAFF PHYSICIAN] - 1-2 days
--- NOTE | 2022-11-17 15:05 | CT ---
EXAMINATION TYPE: CT abdomen pelvis wo con CT DLP: 1895.1 mGycm, Automated exposure control for dose reduction was used. DATE OF EXAM: 11/17/2022 2:47 PM COMPARISON: None. CLINICAL INDICATION:Male, 72 years old with history of abdominal pain; right flank pain TECHNIQUE: Axial CT of the abdomen and pelvis. Sagittal and coronal reformats were created on a [employer] workstation. Contrast used: mL of , (none if empty) Oral contrast used: without Oral Contrast (none if empty) FINDINGS: LOWER CHEST: Hernia is present. ABDOMEN LIVER: Right hepatic cyst. GALLBLADDER AND BILE DUCTS: Unremarkable. PANCREAS: Unremarkable. SPLEEN: Unremarkable. ADRENAL GLANDS: Unremarkable. KIDNEYS AND URETERS: Right calculus thought to be within the ureter measuring 3 mm with mild hydronep hrosis. Right renal exophytic mass measuring up to 5.9 x 5.2 cm. Nonobstructing right renal calculus layering in the pelvis measuring up to 12 mm. Nonobstructing left renal calculi measuring up to 3 mm. PELVIS BLADDER: Unremarkable REPRODUCTIVE: Unremarkable. ABDOMEN & PELVIS STOMACH AND BOWEL: No evidence of bowel obstruction. PERITONEUM/RETROPERITONEUM: No evidence of pneumoperitoneum or free fluid. VASCULATURE: No evidence of aortic aneurysm. MUSCULOSKELETAL: No acute osseous abnormalities. Moderate disc degeneration changes are present throu ghout the thoracolumbar spine. Arthroplasty changes. Hardware appears intact. LYMPH NODES: No gross evidence for lymphadenopathy. SOFT TISSUE/ABDOMINAL WALL: Fat-containing umbilical hernia. IMPRESSION: 1. Mild hydronephrosis secondary obstructing 3 mm calculus in the mid ureter. 2. Right renal mass measuring up to 5.9 cm. Urology consultation recommended. 3. Nonobstructing bilateral renal calculi measuring up tor 12 mm on the right and 3 mm on the left. 4. Small hiatal hernia.
[2022-11-17 15:30] VITALS: RESP 20
[2022-11-17] MEDS ORDERED: MORPHINE SULFATE 4 MG/ML SYRINGE IV STA (15:40)
[2022-11-17] MEDS ORDERED: ONDANSETRON 4 MG/2 ML VIAL IVP STA (15:40)
[2022-11-17 15:42] LABS: Basophils % (A) 0 %; Eosinophils % (A) 0 %; HCT 42.2 % (39.0-53.0); Lymphocytes # (A) 0.4 k/uL (1.0-4.8); Lymphocytes % (A) 4 %; MCHC 33.2 g/dL (31.0-37.0); MCV 93.4 fL (80.0-100.0); Mean Platelet Volume 7.5; Monocytes # (A) 0.3 k/uL (0-1.0); Monocytes % (A) 3 %; Neutrophils % (A) 93 %; Platelet Count 217 k/uL (150-450); RBC 4.52 m/uL (4.30-5.90); RDW 14.1 % (11.5-15.5); WBC 10.8 k/uL (3.8-10.6)
[2022-11-17 15:53] LABS: Appearance,Urine Turbid (Clear); Bilirubin,Urine Negative (Negative); Blood,Urine Large (Negative); Budding Yeast,Urine Occasional /hpf; Glucose,Urine (UA) 4+ (Negative); Leukocyte Esterase,Urine Negative (Negative); Mucus,Urine Many /hpf; Nitrite,Urine Negative (Negative); Protein,Urine 1+ (Negative); RBC,Urine >182 /hpf (0-5); Specific Gravity,Urine 1.023 (1.001-1.035); Urobilinogen,Urine <2.0 mg/dL (<2.0); WBC,Urine 3 /hpf (0-5)
[2022-11-17 15:54] LABS: Color,Urine Brown; Ketones,Urine 2+ (Negative)
[2022-11-17 15:57] LABS: ALT 33 U/L (4-49); AST 31 U/L (17-59); African American GFR (CKD) 72 (>60 ml/min/1.73 sqM); Albumin 4.4 g/dL (3.5-5.0); Alkaline Phosphatase 67 U/L (38-126); Anion Gap 14 mmol/L; Blood Urea Nitrogen 24 mg/dL (9-20); Calcium 9.5 mg/dL (8.4-10.2); Carbon Dioxide 23 mmol/L (22-30); Chloride 100 mmol/L (98-107); Glucose 224 mg/dL (74-99); Lipase 267 U/L (23-300); Non-African American GFR(CKD) 62 (>60 ml/min/1.73 sqM); Potassium 4.2 mmol/L (3.5-5.1); Sodium 137 mmol/L (137-145); Total Bilirubin 0.9 mg/dL (0.2-1.3); Total Protein 7.4 g/dL (6.3-8.2)
[2022-11-17 16:03] LABS: C Reactive Protein <0.5 mg/dL (<1.0)
[2022-11-17] MEDS ORDERED: TAMSULOSIN 0.4 MG CAP.ER.24H PO STA (16:21)
[2022-11-17] MEDS ORDERED: HYDROmorphone 1 MG/ML 1 ML SYRINGE IVP STA (16:50)
[2022-11-17 18:15] VITALS: BP 154/74; PULSE 85; TEMP 98.2
== END 2022-11-17 18:20 | disposition home or self-care (01) ==
LOC: EC 13:48
DX: N13.2 Hydronephrosis with renal and ureteral calculous obstruction (principal); N28.89 Other specified disorders of kidney and ureter; E11.9 Type 2 diabetes mellitus without complications; E78.5 Hyperlipidemia, unspecified; I10 Essential (primary) hypertension; Z87.891 Personal history of nicotine dependence; Z88.0 Allergy status to penicillin; Z79.82 Long term (current) use of aspirin; Z79.4 Long term (current) use of insulin; Z79.84 Long term (current) use of oral hypoglycemic drugs; Z79.899 Other long term (current) drug therapy
CPT/HCPCS: 36415; 80053; 83690; 85025; 86140; 81001; 74176; 99284; 96374; 96375 ×2; J2270; J2405; J1170

== ENCOUNTER 2022-12-06 12:16 | Day surgery (SDC) | payer MEDICARE ==
[~2022-12-06 12:16] MED LIST changes: +CIPROFLOXACIN/DEXTROSE PMX 400 MG in DEXTROSE/WATER 1 200ML.BAG IVPB PRN; -DEXAMETHASONE SOD PHOSPHATE 10 MG/ML 1 ML VIAL IV ONE; -HYDROmorphone 0.5 MG/0.5 ML SYRINGE IVP PRN; -LACTATED RINGERS 1,000 ML IV SCH; -ONDANSETRON 4 MG/2 ML VIAL IVP ONE; -ceFAZolin 3 GM in SODIUM CHLORIDE 0.9% 100 ML IVPB ONE
--- NOTE | 2022-12-06 13:14 | XR ---
EXAMINATION TYPE: XR KUB DATE OF EXAM: 12/06/2022 12:49 PM CLINICAL INDICATION:Male, 72 years old with history of kidney stone; [facility] COMPARISON: CT 11/17/2022. TECHNIQUE: One radiographic view of the abdomen was obtained. FINDINGS: The bowel gas pattern is nonspecific without dilated loops of small or large bowel. There i s no evidence for organomegaly or pneumoperitoneum. The osseous structures are intact. Fecal materia l and gas are demonstrated throughout the colon and rectum. Left hip arthroplasty changes appear int act. Multilevel degeneration changes throughout the spine. Pelvic phlebolith are present. Renal pelvi s calculus measuring up to 11 mm may be present. Evaluation limited. IMPRESSION: 1. Right renal pelvis calculus not well appreciated there is some gas projecting over the right kidn ey calcification may be present in the renal pelvis. 2. Post surgical changes left hip with hardware intact.
[2022-12-06 13:57] LABS: Glucose,Whole Blood 125 mg/dL (70-110)
[2022-12-06] MEDS ORDERED: LACTATED RINGERS 1,000 ML IV ONE ×2 (13:58→17:19)
[2022-12-06] MEDS ORDERED: ONDANSETRON 4 MG/2 ML VIAL ONE ×2 (14:05→17:24)
[2022-12-06 14:22] LABS: African American GFR (CKD) >90 (>60 ml/min/1.73 sqM); Anion Gap 8 mmol/L; Blood Urea Nitrogen 17 mg/dL (9-20); Calcium 9.2 mg/dL (8.4-10.2); Carbon Dioxide 26 mmol/L (22-30); Chloride 104 mmol/L (98-107); Glucose 124 mg/dL (74-99); Non-African American GFR(CKD) 85 (>60 ml/min/1.73 sqM); Potassium 4.5 mmol/L (3.5-5.1); Sodium 138 mmol/L (137-145)
[2022-12-06] MEDS ORDERED: LIDOCAINE 1% INJ 10MG/ML (20 ML MDV) ONE (15:20)
[2022-12-06] MEDS ORDERED: PROPOFOL 10 MG/ML 20 ML VIAL IV ONE (15:20)
[2022-12-06] MEDS ORDERED: SUCCINYLCHOLINE CHLORIDE 200 MG/10 ML VIAL IV ONE (15:20)
[2022-12-06] MEDS ORDERED: PHENYLEPHRINE-0.9% NACL SYG 1,000 MCG/10 ML SYRINGE ONE (15:20)
[2022-12-06] MEDS ORDERED: fentaNYL (PF) 50 MCG/ML 2 ML AMP ONE (15:20)
--- NOTE | 2022-12-06 15:33 | P.HPIHPCON ---
History of Present Illness H&P Date: 12/06/22 Chief Complaint: right sided renal stone This is a 72 yo male with hx of 1.2 cm right sided renal pelvic stone and 3mm right sided ureteral stone. He also has evidence of a 5.9 cm right-sided renal mass. He is asymptomatic from his right ureteral stone most likely he has passed it. I discussed with him I do recommend removing the right-sided renal pelvic stone prior to proceeding with a attempted partial nephrectomy on the right-sided renal mass, given the risk of obstruction from the stone following the partial nephrectomy. Discussed option of right-sided ureteroscopy with holmium laser, aware of he risk which includes but not limited to bleeding, infection, injury to the ureter. Risk of anesthesia was also discussed. He understood all the risk and agreed to proceed Consent for Procedure: I have explained the operation/procedure to the patient, including the risks, benefits, side effects, alternative therapies (including not receiving the proposed treatment or service), the likelihood of the patient achieving his/her goals, and potential recuperation problems for the procedure/sedation/analgesia, as well as any blood products, if indicated. I also explained to the patient the risks, benefits and side effects of the alternatives, as well as the risks related to not receiving the proposed procedure, care, treatment, or services. Past Medical History Past Medical History: Diabetes Mellitus, Hyperlipidemia, Hypertension, Osteoarthritis (OA) Additional Past Medical History / Comment(s): chronic cough, kidney stone, History of Any Multi-Drug Resistant Organisms: None Reported Past Surgical History: Hernia Repair, Orthopedic Surgery Additional Past Surgical History / Comment(s): rt knee meniscus repair, left leg orif with screws, 12-22-15 total rt knee, lft hip replacement, rt carpal tunnel Past Anesthesia/Blood Transfusion Reactions: No Reported Reaction Smoking Status: Former smoker - Past Family History Father Family Medical History: Cancer Additional Family Medical History / Comment(s): lung Mother Family Medical History: Asthma, Diabetes Mellitus Brother(s) Family Medical History: Cancer Additional Family Medical History / Comment(s): Pancreatic cancer Medications and Allergies Home Medications Medication Instructions Recorded Confirmed Type Atorvastatin [Lipitor] 10 mg PO DAILY 12/18/15 12/06/22 History Insulin Aspart [NovoLOG Flexpen] 20 unit SQ AC-TID 12/18/15 12/06/22 History Insulin Glargine,Hum.rec.anlog 54 unit SQ BID 12/18/15 12/06/22 History [Lantus Solostar] Metoprolol Tartrate 50 mg PO BID 12/18/15 12/06/22 History hydroCHLOROthiazide 25 mg PO DAILY 12/18/15 12/06/22 History [Hydrochlorothiazide] metFORMIN HCL [Glucophage] 1,000 mg PO BID 12/22/15 12/06/22 History Montelukast Sodium [Singulair] 10 mg PO HS 08/16/19 12/06/22 History Semaglutide [Ozempic] 2 mg SQ WE 08/16/19 12/06/22 History Losartan Potassium 25 mg PO DAILY 12/02/22 12/06/22 History Vit B12(Unk) 1 tab PO DAILY 12/02/22 12/06/22 History Allergies Allergy/AdvReac Type Severity Reaction Status Date / Time Penicillins Allergy Unknown Verified 12/06/22 13:22 Childhood Surgical - Exam Vital Signs Temp Pulse Resp BP Pulse Ox 96.7 F L 63 20 135/79 98 12/06/22 13:41 12/06/22 13:41 12/06/22 13:41 12/06/22 13:41 12/06/22 13:41 - General no distress, no pain - Eyes normal ocular movement, no pale - ENT normal nares, normal mucosa - Respiratory normal expansion, normal respiratory effort - Abdomen Abdomen: soft, non tender Results - Labs 12/06/22 13:56 Abnormal Lab Results - Last 24 Hours (Table) 12/06/22 12/06/22 Range/Units 13:52 13:56 Glucose 124 H (74-99) mg/dL POC Glucose (mg/dL) 125 H (70-110) mg/dL Diabetes panel 12/06/22 Range/Units 13:56 Sodium 138 (137-145) mmol/L Potassium 4.5 (3.5-5.1) mmol/L Chloride 104 (98-107) mmol/L Carbon Dioxide 26 (22-30) mmol/L BUN 17 (9-20) mg/dL Creatinine 0.88 (0.66-1.25) mg/dL Glucose 124 H (74-99) mg/dL Calcium 9.2 (8.4-10.2) mg/dL Calcium panel 12/06/22 Range/Units 13:56 Calcium 9.2 (8.4-10.2) mg/dL Pituitary panel 12/06/22 Range/Units 13:56 Sodium 138 (137-145) mmol/L Potassium 4.5 (3.5-5.1) mmol/L Chloride 104 (98-107) mmol/L Carbon Dioxide 26 (22-30) mmol/L BUN 17 (9-20) mg/dL Creatinine 0.88 (0.66-1.25) mg/dL Glucose 124 H (74-99) mg/dL Calcium 9.2 (8.4-10.2) mg/dL Adrenal panel 12/06/22 Range/Units 13:56 Sodium 138 (137-145) mmol/L Potassium 4.5 (3.5-5.1) mmol/L Chloride 104 (98-107) mmol/L Carbon Dioxide 26 (22-30) mmol/L BUN 17 (9-20) mg/dL Creatinine 0.88 (0.66-1.25) mg/dL Glucose 124 H (74-99) mg/dL Calcium 9.2 (8.4-10.2) mg/dL Assessment and Plan Assessment: Or for right-sided ureteroscopy, holmium laser lithotripsy, stone basketing and stent insertion
--- NOTE | 2022-12-06 16:33 | FL ---
Intraoperative/procedural fluoroscopic services were provided for right ureteral stent insertion. Tot al fluoroscopy time is 24.9 seconds with a total of 3 submitted images to PACS. Total DAP 9.6835 Gycm 2. Please see the operative note for further details.
--- NOTE | 2022-12-06 16:38 | P.OP ---
Date of Procedure: 12/06/22 Preoperative Diagnosis: Right renal stone Postoperative Diagnosis: Same Procedure(s) Performed: Cystoscopy, right ureteroscopy, holmium laser lithotripsy, stone basketing and stent insertion Implants: 6fr X 26 cm stent in the right ureter Anesthesia: BHARTI Surgeon: Shamir Monge Estimated Blood Loss (ml): 5 Pathology: none sent Condition: stable Disposition: PACU Indications for Procedure: This is a 72 yo male with hx of 1.2 cm right sided renal pelvic stone and 3mm right sided ureteral stone. He also has evidence of a 5.9 cm right-sided renal mass. He is asymptomatic from his right ureteral stone most likely he has passed it. I discussed with him I do recommend removing the right-sided renal pelvic stone prior to proceeding with a attempted partial nephrectomy on the right-sided renal mass, given the risk of obstruction from the stone following the partial nephrectomy. Discussed option of right-sided ureteroscopy with holmium laser, aware of he risk which includes but not limited to bleeding, infection, injury to the ureter. Risk of anesthesia was also discussed. He understood all the risk and agreed to proceed Operative Findings: Large right-sided renal stone Description of Procedure: Patient brought to the operating room, general anesthesia was induced. He was prepped and draped in sterile fashion and placed in the dorsolithotomy position. Cystoscopy fitted 21-Persian sheath was inserted per urethra, cystoscopy was performed which showed no abnormality within the bladder. Patient had a slight prostate enlargement with a small median lobe. Attention was then carried to the right ureteral orifice which was intubated with a sensor wire. Next the wire was advanced under fluoroscopy into the kidney. Next under fluoroscopy 1113 Persian access sheath was passed over the wire into the proximal ureter. Next a flexible ureteroscope was inserted through the access sheath, renoscopy was performed which showed a large stone in the renal pelvis. Using the holmium laser the stone was dusted, sizable stone fragments were removed using stone basket repeat renoscopy showed no sizable fragments or injury to the kidney, pullback ureteroscopy was performed which showed no injury to the ureter or any ureteral stones, as the ureteroscope was withdrawn and a wire was passed through. Next a ureteral stent was passed over the wire, the proximal curl was visualized on fluoroscopy and the distal curl was visualized using cystoscope. The stent was left on a string and taped to the patient penis. Patient tolerated procedure well and taken recovery in stable condition
[2022-12-06 16:39] VITALS: TEMP 97.5
[2022-12-06 16:44] LABS: Glucose,Whole Blood 102 mg/dL (70-110)
[2022-12-06] MEDS ORDERED: KETOROLAC 15 MG/ML 1 ML VIAL IVP ONE (17:13)
[2022-12-06] MEDS ORDERED: ONDANSETRON 4 MG/2 ML VIAL IVP ONE (17:27)
[2022-12-06 18:17] LABS: Glucose,Whole Blood 105 mg/dL (70-110)
[2022-12-06 18:28] VITALS: BP 111/70; PULSE 66; RESP 17
== END 2022-12-06 18:29 | disposition home or self-care (01) ==
LOC: OR 12:16
PROVIDERS: ATTEND Urology
DX: N20.0 Calculus of kidney (principal); I10 Essential (primary) hypertension; E78.5 Hyperlipidemia, unspecified; E11.9 Type 2 diabetes mellitus without complications; M19.90 Unspecified osteoarthritis, unspecified site; Z98.890 Other specified postprocedural states; Z87.891 Personal history of nicotine dependence; Z88.0 Allergy status to penicillin; Z79.899 Other long term (current) drug therapy
CPT/HCPCS: 80048; 82365; 74018; 52356; C2625; C1769; J0330; J2405; J2001; J3010; J0744; J1885; J2704; J2371

== ENCOUNTER → 2022-12-20 | Outpatient (CLI) | payer MEDICARE ==
[2022-12-20 12:58] LABS: African American GFR (CKD) 74 (>60 ml/min/1.73 sqM); Blood Urea Nitrogen 18 mg/dL (9-20); Non-African American GFR(CKD) 64 (>60 ml/min/1.73 sqM)
--- NOTE | 2022-12-20 14:03 | CT ---
EXAMINATION TYPE: CT chest abdomen w con, CT abdomen wo con CT DLP: 1734 (accession [id number]), 703 (accession [id number]) mGycm, Automated exposure control for dos e reduction was used. DATE OF EXAM: 12/20/2022 1:42 PM COMPARISON: None. CLINICAL INDICATION:Male, 72 years old with history of D41.01 RENAL MASS RIGHT;renal mass Technique: Multiple axial images of the chest, abdomen were obtained. Two-dimensional coronal and sag ittal reconstructions were obtained. Contrast used:100 mL of Isovue 300 with IV Contrast, Oral contrast used: with Oral Contrast Findings: CHEST: LUNGS/ PLEURA: No focal consolidation, pneumothorax or pleural effusion. No new or enlarging pulmonar y nodules. AIRWAY: Patent and unremarkable. HEART: The heart is mildly enlarged for size. MEDIASTINUM: No gross evidence of adenopathy. VASCULATURE: No aortic aneurysm. MUSCULOSKELETAL: No acute osseous abnormalities. SOFT TISSUES/LYMPH NODES: Unremarkable. LOWER NECK: No significant findings. ABDOMEN: ABDOMEN LIVER: Probable simple appearing right hepatic cyst. GALLBLADDER AND BILE DUCTS: Unremarkable. PANCREAS: Unremarkable. SPLEEN: Unremarkable. ADRENAL GLANDS: Unremarkable. KIDNEYS AND URETERS: Right renal mass measuring 6.1 x 5.2 x 6.3 cm which is better characterized on C T with IV contrast compared to prior on 11/17/2022. No evidence for hydronephrosis. No left renal mass es. Left simple appearing renal cysts. Right 4 mm calculus, left 3 mm calculus. No evidence for obstr uctive uropathy. STOMACH AND BOWEL: No evidence of bowel obstruction. PERITONEUM: No evidence of pneumoperitoneum or free fluid. VASCULATURE: No evidence of aortic aneurysm. MUSCULOSKELETAL: No acute osseous abnormalities, degeneration changes throughout the spine with sever e atherosclerosis of the spinous processes. Osteophyte formation disc space narrowing and facet arthr opathy. LYMPH NODES: No gross evidence for lymphadenopathy. SOFT TISSUE/ABDOMINAL WALL: Unremarkable IMPRESSION: Right renal mass predominantly exophytic measuring up to 6.3 cm. No lymphadenopathy at this time. No evidence for metastatic disease at this time.
== END | disposition home or self-care (01) ==
LOC: RADCTMAIN 12:08
PROVIDERS: ATTEND Urology
DX: D41.01 Neoplasm of uncertain behavior of right kidney (principal); N28.89 Other specified disorders of kidney and ureter
CPT/HCPCS: 82565; 84520; 71260; 74150; 74160; 36415; Q9967

== ENCOUNTER → 2023-01-05 | Outpatient (CLI) | payer MEDICARE ==
[2023-01-05 17:15] LABS: Blood Urea Nitrogen 15.3 mg/dL (9.0-27.0); Calcium 9.5 mg/dL (8.7-10.3); Carbon Dioxide 28.8 mmol/L (21.6-31.8); Chloride 102 mmol/L (96-109); Glucose 131 mg/dL (70-110); Potassium 5.2 mmol/L (3.5-5.5); Sodium 139 mmol/L (135-145)
[2023-01-05 17:18] LABS: Basophils # (A) 0.04 X 10*3/uL (0.00-0.10); Basophils % (A) 0.5 %; Eosinophils # (A) 0.27 X 10*3/uL (0.04-0.35); Eosinophils % (A) 3.5 %; HCT 42.6 % (39.6-50.0); HGB 13.5 g/dL (13.0-17.0); Lymphocytes # (A) 1.63 X 10*3/uL (0.90-5.00); Lymphocytes % (A) 21.1 %; MCHC 31.7 g/dL (32.0-37.0); MCV 94.7 FL (80.0-97.0); Mean Platelet Volume 10.4 FL (9.5-12.2); Monocytes # (A) 0.88 X 10*3/uL (0.20-1.00); Monocytes % (A) 11.4 %; NRBC Per 100 WBC 0 X 10*3/uL (0.00-0.01); Neutrophils # (A) 4.89 X 10*3/uL (1.80-7.70); Neutrophils % (A) 63.2 %; Platelet Count 199 X 10*3/uL (140-440); RDW 14.2 % (11.5-14.5); WBC 7.73 X 10*3/uL (4.50-10.00)
[2023-01-05 18:32] LABS: Appearance,Urine Clear (Clear); Bilirubin,Urine Negative (Negative); Blood,Urine Negative (Negative); Color,Urine Yellow (Yellow); Ketones,Urine Negative (Negative); Nitrite,Urine Negative (Negative); PH, Urine 5.5; Specific Gravity,Urine 1.019 (1.001-1.030); Urobilinogen,Urine 0.2 E.U./DL
== END | disposition home or self-care (01) ==
LOC: LABPAT 08:48
PROVIDERS: ATTEND Urology
DX: Z01.812 Encounter for preprocedural laboratory examination (principal); D41.01 Neoplasm of uncertain behavior of right kidney; R31.29 Other microscopic hematuria
CPT/HCPCS: 36415; 80048; 81003; 85025; 86850; 86900; 86901; 87086

== ENCOUNTER 2023-01-13 09:28 | Inpatient (IN) | payer MEDICARE ==
--- NOTE | 2023-01-13 07:40 | P.HPIHPCON ---
History of Present Illness H&P Date: 01/13/23 Chief Complaint: Right renal mass This is a 72-year-old male with history of a 6 cm right-sided renal mass was found incidentally. Reviewed the images with him and his discussed we'll attempt to a robotic partial nephrectomy. Discussed there is a high risk of conversion to radical given the size of the tumor. Aware of the risk which includes but not limited to, infection, injury to nearby organs. Discussed risk of cancer recurrence and need for postoperative surveillance. Discussed if a radical nephrectomy is performed there is a high risk of needing hemodialysis in the short and long-term. Medical complication was also discussed. He understood all the risk and agree to proceed Consent for Procedure: I have explained the operation/procedure to the patient, including the risks, benefits, side effects, alternative therapies (including not receiving the proposed treatment or service), the likelihood of the patient achieving his/her goals, and potential recuperation problems for the procedure/sedation/analgesia, as well as any blood products, if indicated. I also explained to the patient the risks, benefits and side effects of the alternatives, as well as the risks related to not receiving the proposed procedure, care, treatment, or services. 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) History of Any Multi-Drug Resistant Organisms: None Reported Past Surgical History: Hernia Repair, Orthopedic Surgery Additional Past Surgical History / Comment(s): rt knee meniscus repair, left leg orif with screws, 12-22-15 total rt knee, rt carpal tunnel, KIDNEY STONE REMOVAL stent placed and removed, lft hip replacemnet Past Anesthesia/Blood Transfusion Reactions: No Reported Reaction Additional Past Anesthesia/Blood Transfusion Reaction / Comment(s): no blood transfusion hx Smoking Status: Former smoker - Past Family History Father Family Medical History: Cancer Additional Family Medical History / Comment(s): lung Mother Family Medical History: Asthma, Diabetes Mellitus Brother(s) Family Medical History: Cancer Additional Family Medical History / Comment(s): Pancreatic cancer Medications and Allergies Home Medications Medication Instructions Recorded Confirmed Type Atorvastatin [Lipitor] 10 mg PO DAILY 12/18/15 01/05/23 History Insulin Aspart [NovoLOG Flexpen] 20 unit SQ AC-TID 12/18/15 01/05/23 History Insulin Glargine,Hum.rec.anlog 62 unit SQ BID 12/18/15 01/05/23 History [Lantus Solostar] Metoprolol Tartrate 50 mg PO BID 12/18/15 01/05/23 History hydroCHLOROthiazide 25 mg PO DAILY 12/18/15 01/05/23 History [Hydrochlorothiazide] metFORMIN HCL [Glucophage] 1,000 mg PO BID 12/22/15 01/05/23 History Montelukast Sodium [Singulair] 10 mg PO HS 08/16/19 01/05/23 History Semaglutide [Ozempic] 2 mg SQ SA 08/16/19 01/05/23 History Losartan Potassium 25 mg PO DAILY 12/02/22 01/05/23 History Vit B12(Unk) 1 tab PO DAILY 12/02/22 01/05/23 History Aspirin [Adult Low Dose Aspirin EC] 81 mg PO DAILY 01/05/23 01/05/23 History Allergies Allergy/AdvReac Type Severity Reaction Status Date / Time Penicillins Allergy Unknown Verified 01/05/23 13:19 Childhood Surgical - Exam - General no distress, no pain - Eyes normal ocular movement, no pale - ENT normal nares, normal mucosa - Abdomen Abdomen: soft, non tender Assessment and Plan Assessment: OR for robotic right-sided partial nephrectomy possible radical
[~2023-01-13 09:28] MED LIST changes: -CIPROFLOXACIN/DEXTROSE PMX 400 MG in DEXTROSE/WATER 1 200ML.BAG IVPB PRN; +CLINDAMYCIN 600 MG in DEXTROSE 5% IN WATER 50 ML IVPB PRN; +GENTAMICIN 120 MG in SODIUM CHLORIDE 0.9% 100 ML IVPB PRN; +ONDANSETRON 4 MG/2 ML VIAL IVP ONE
[2023-01-13 10:08] LABS: Glucose,Whole Blood 92 mg/dL (70-110)
[2023-01-13] MEDS: LACTATED RINGERS 1,000 ML IV SCH (10:09)
[2023-01-13] MEDS ORDERED: MIDAZOLAM 2 MG/2 ML VIAL IVP ONE (10:53)
[2023-01-13] MEDS ORDERED: fentaNYL (PF) 50 MCG/ML 2 ML AMP IVP ONE (10:53)
[2023-01-13] MEDS ORDERED: NEOSTIGMINE 1 MG/ML 10 ML VIAL ONE (11:32)
[2023-01-13] MEDS ORDERED: SODIUM CHLORIDE 0.9% (PF) 10 ML VIAL ONE (11:32)
[2023-01-13] MEDS ORDERED: ePHEDrine 50 MG/ML 1 ML VIAL ONE (11:32)
[2023-01-13] MEDS ORDERED: ROPIVACAINE 5 MG/ML 30 ML VIAL ONE (11:32)
[2023-01-13] MEDS ORDERED: SUCCINYLCHOLINE CHLORIDE 200 MG/10 ML VIAL IV ONE (11:32)
[2023-01-13] MEDS ORDERED: ROCURONIUM 10 MG/ML (5 ML VIAL) IV ONE (11:32)
[2023-01-13] MEDS ORDERED: fentaNYL (PF) 50 MCG/ML 2 ML AMP ONE (11:32)
[2023-01-13] MEDS ORDERED: MIDAZOLAM 2 MG/2 ML VIAL ONE (11:32)
[2023-01-13] MEDS ORDERED: LIDOCAINE 1% INJ 10MG/ML (20 ML MDV) ONE (11:32)
[2023-01-13] MEDS ORDERED: PHENYLEPHRINE-0.9% NACL SYG 1,000 MCG/10 ML SYRINGE ONE (11:32)
[2023-01-13] MEDS ORDERED: LACTATED RINGERS 1,000 ML IV ONE (11:32)
[2023-01-13] MEDS ORDERED: PROPOFOL 10 MG/ML 20 ML VIAL IV ONE (11:32)
[2023-01-13] MEDS ORDERED: WATER FOR INJECTION, STERILE 10 ML VIAL IV ONE (11:32)
[2023-01-13] MEDS ORDERED: GLYCOPYRROLATE 0.2 MG/ML 2 ML VIAL ONE (11:32)
[2023-01-13] MEDS ORDERED: methocarbamoL 750 MG TAB PO PRN (11:35)
[2023-01-13] MEDS ORDERED: BUPIVACAINE (PF) 0.5% 30 ML VIAL SQ ONE (12:12)
--- NOTE | 2023-01-13 13:38 | P.OP ---
Date of Procedure: 01/13/23 Preoperative Diagnosis: Right renal mass Postoperative Diagnosis: Same Procedure(s) Performed: Robotic-assisted laparoscopic right sided radical nephrectomy Implants: None Anesthesia: BHARTI Surgeon: Shamir Monge Shook Machine Operator #1: Nimisha Kang Estimated Blood Loss (ml): 50 Pathology: other (Right renal mass) Condition: stable Disposition: PACU Indications for Procedure: This is a 72-year-old male with history of a 6 cm right-sided renal mass was found incidentally. 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 Discussed with him given this finding we will proceed with a right-sided radical nephrectomy Aware of the risk which includes but not limited to, infection, injury to nearby organs. Discussed risk of cancer recurrence and need for postoperative surveillance. Risk of needing hemodialysis in the short and long-term was discussed.. Medical complication was also discussed. He understood all the risk and agree to proceed Description of Procedure: The patient was taken to the operating room . General anesthesia was induced. She was prepped and draped in sterile fashion, and was placed in modified flank position . All pressure points were padded. The abdominal insufflation was achieved with the Veress needle. A 8 mm camera port was placed. Robotic trocars and perinatal breastfeeding assistant ports were placed under direct vision. a 5 mm liver retractor was placed. . The robot was docked into place. The colon was mobilized medially by incising along the white line of Toldt. Next the duodenum was kocherized. At this time the vena cava was exposed. Next the ureter was retracted anteriorly off the psoas muscle. Dissection proceeded cranially towards the renal hilum. The upper pole attachments were dissected. Care was taken to safely mobilize the kidney free of all visceral structures.The renal vessels were dissected. At this point the renal vessels were exposed. At this time the renal vein was palpated in the renal thrombus terminated in the renal vein and there was no extension into the vena cava. Next the renal hilum was ligated using the vascular stapler. The adrenal gland was mobilized. Lateral and remaining kidney attachments were released. The ureter was dissected further distally. The ureter was ligated using the vascular stapler. The kidney was placed in an Endo Catch bag. Hemostatic agent were applied to the surgical field. The robot was then de-docked and the specimen was then removed by extending the perinatal breastfeeding assistant port. Fascia was closed with one layer using #1 PDS in running fashion. Skin was closed with subcuticular sutures and dermabond. The patient was awoken from general anesthesia in stable condition. The renal vein was opened on the back table and the thrombus did not extend beyond the staple line. Please refer to the final pathology report for final diagnosis
[2023-01-13] MEDS: HYDROmorphone 0.5 MG/0.5 ML SYRINGE IVP PRN ×4 (14:04→16:41)
[2023-01-13 14:23] LABS: Glucose,Whole Blood 120 mg/dL (70-110)
[2023-01-13] MEDS ORDERED: MEPERIDINE 50 MG/ML SYRINGE IVP ONE ×2 (14:45)
[2023-01-13] MEDS: INSULIN ASPART (NovoLOG) 100 UNIT/ML VIAL SQ SCH (18:50)
[2023-01-13] MEDS: HYDROmorphone 1 MG/ML 1 ML SYRINGE IVP PRN ×2 (18:50→22:50)
[2023-01-13 20:44] LABS: Glucose,Whole Blood 139 mg/dL (70-110)
[2023-01-13] MEDS: metFORMIN 500 MG TAB PO SCH (21:09)
[2023-01-13] MEDS: METOPROLOL TARTRATE 50 MG TAB PO SCH (21:09)
[2023-01-13] MEDS: MONTELUKAST 10 MG TAB PO SCH (21:09)
[2023-01-13] MEDS: INSULIN DETEMIR (LEVEMIR) 100 UNIT/ML SYR SQ SCH (21:10)
[2023-01-13] MEDS: HYDROcodone/APAP 5-325MG 1 EACH TAB PO PRN (21:10)
[2023-01-14] MEDS: HEPARIN SODIUM,PORCINE 5,000 UNIT/ML 1 ML VIAL SQ SCH ×4 (00:41→23:49)
[2023-01-14] MEDS: HYDROcodone/APAP 5-325MG 1 EACH TAB PO PRN ×3 (04:46→12:55)
[2023-01-14 06:08] LABS: Glucose,Whole Blood 100 mg/dL (70-110)
[2023-01-14] MEDS: HYDROmorphone 1 MG/ML 1 ML SYRINGE IVP PRN ×3 (06:13→17:33)
[2023-01-14] MEDS: INSULIN ASPART (NovoLOG) 100 UNIT/ML VIAL SQ SCH ×3 (06:54→19:26)
[2023-01-14 08:35] LABS: Basophils # (A) 0.01 X 10*3/uL (0.00-0.10); Basophils % (A) 0.1 %; Eosinophils # (A) 0.02 X 10*3/uL (0.04-0.35); Eosinophils % (A) 0.3 %; HCT 37.9 % (39.6-50.0); HGB 11.9 g/dL (13.0-17.0); Lymphocytes # (A) 0.67 X 10*3/uL (0.90-5.00); Lymphocytes % (A) 8.8 %; MCH 29.7 pg (27.0-32.0); MCHC 31.4 g/dL (32.0-37.0); MCV 94.5 FL (80.0-97.0); Mean Platelet Volume 9.9 FL (9.5-12.2); Monocytes # (A) 0.65 X 10*3/uL (0.20-1.00); Monocytes % (A) 8.6 %; NRBC Per 100 WBC 0 X 10*3/uL (0.00-0.01); Neutrophils # (A) 6.22 X 10*3/uL (1.80-7.70); Neutrophils % (A) 81.9 %; Platelet Count 155 X 10*3/uL (140-440); RBC 4.01 X 10*6/uL (4.40-5.60); RDW 14.7 % (11.5-14.5); WBC 7.59 X 10*3/uL (4.50-10.00)
[2023-01-14] MEDS: INSULIN DETEMIR (LEVEMIR) 100 UNIT/ML SYR SQ SCH ×2 (08:47→22:03)
[2023-01-14] MEDS: metFORMIN 500 MG TAB PO SCH ×2 (09:12→22:03)
[2023-01-14] MEDS: ATORVASTATIN 10 MG TAB PO SCH (09:12)
[2023-01-14] MEDS: METOPROLOL TARTRATE 50 MG TAB PO SCH ×2 (09:12→22:03)
[2023-01-14] MEDS: hydroCHLOROthiazide 25 MG TAB PO SCH (09:12)
[2023-01-14] MEDS: LOSARTAN 25 MG TAB PO SCH (09:12)
[2023-01-14 09:25] LABS: Blood Urea Nitrogen 14.7 mg/dL (9.0-27.0); Calcium 8.5 mg/dL (8.7-10.3); Carbon Dioxide 24.8 mmol/L (21.6-31.8); Chloride 101 mmol/L (96-109); Glucose 87 mg/dL (70-110); Potassium 4.6 mmol/L (3.5-5.5); Sodium 137 mmol/L (135-145)
[2023-01-14 11:49] LABS: Glucose,Whole Blood 101 mg/dL (70-110)
--- NOTE | 2023-01-14 12:48 | P.PN ---
Subjective POD #1 status post right sided radical nephrectomy. Is having incisional pain this morning. Denies any nausea or vomiting. He has not ambulated yet Objective - Vital Signs Vital signs: Vital Signs Temp 98.1 F 01/14/23 07:22 Pulse 87 01/14/23 09:32 Resp 18 01/14/23 07:22 BP 111/60 01/14/23 09:32 Pulse Ox 91 L 01/14/23 09:32 FiO2 Intake & Output 01/13/23 01/14/23 01/14/23 18:59 06:59 18:59 Intake Total 2257 Output Total 925 400 400 Balance 1332 -400 -400 Weight 135.5 kg Intake: IV 7 Output: Urine 850 400 400 Uretheral (Patel) 400 Estimated Blood Loss 75 Other: Voiding Method Indwelling Catheter Indwelling Catheter - Constitutional General appearance: Present: no acute distress - Gastrointestinal General gastrointestinal: Present: soft, tenderness (along the incision). Absent: distended - Labs CBC & Chem 7: 01/14/23 06:11 01/14/23 06:11 Labs: Abnormal Lab Results - Last 24 Hours (Table) 01/13/23 01/13/23 01/14/23 Range/Units 14:21 20:42 06:11 RBC 4.01 L (4.40-5.60) X 10*6/uL Hgb 11.9 L (13.0-17.0) g/dL Hct 37.9 L (39.6-50.0) % MCHC 31.4 L (32.0-37.0) g/dL RDW 14.7 H (11.5-14.5) % Lymphocytes # 0.67 L (0.90-5.00) X 10*3/uL Eosinophils # 0.02 L (0.04-0.35) X 10*3/uL Est GFR (CKD-EPI) (>=60) BUN/Creatinine Ratio (12.00-20.00) Ratio POC Glucose (mg/dL) 120 H 139 H (70-110) mg/dL Calcium (8.7-10.3) mg/dL 01/14/23 Range/Units 06:11 RBC (4.40-5.60) X 10*6/uL Hgb (13.0-17.0) g/dL Hct (39.6-50.0) % MCHC (32.0-37.0) g/dL RDW (11.5-14.5) % Lymphocytes # (0.90-5.00) X 10*3/uL Eosinophils # (0.04-0.35) X 10*3/uL Est GFR (CKD-EPI) 53 L (>=60) BUN/Creatinine Ratio 10.50 L (12.00-20.00) Ratio POC Glucose (mg/dL) (70-110) mg/dL Calcium 8.5 L (8.7-10.3) mg/dL Assessment and Plan Assessment: POD #1 status post right radical nephrectomy -ambulate -patel can be removed once patient is ambulatory -Pain control
[2023-01-14] MEDS: LACTATED RINGERS 1,000 ML IV SCH (13:22)
[2023-01-14 16:55] LABS: Glucose,Whole Blood 110 mg/dL (70-110)
[2023-01-14 19:47] LABS: Glucose,Whole Blood 108 mg/dL (70-110)
[2023-01-14] MEDS: MONTELUKAST 10 MG TAB PO SCH (22:04)
[2023-01-15 06:58] LABS: Glucose,Whole Blood 160 mg/dL (70-110)
[2023-01-15] MEDS: LOSARTAN 25 MG TAB PO SCH (08:22)
[2023-01-15] MEDS: metFORMIN 500 MG TAB PO SCH (08:22)
[2023-01-15] MEDS: INSULIN DETEMIR (LEVEMIR) 100 UNIT/ML SYR SQ SCH (08:22)
[2023-01-15] MEDS: hydroCHLOROthiazide 25 MG TAB PO SCH (08:22)
[2023-01-15] MEDS: ATORVASTATIN 10 MG TAB PO SCH (08:22)
[2023-01-15] MEDS: INSULIN ASPART (NovoLOG) 100 UNIT/ML VIAL SQ SCH (08:22)
[2023-01-15] MEDS: METOPROLOL TARTRATE 50 MG TAB PO SCH (08:22)
[2023-01-15] MEDS: HEPARIN SODIUM,PORCINE 5,000 UNIT/ML 1 ML VIAL SQ SCH (08:22)
[2023-01-15 09:46] VITALS: BP 122/68; PULSE 80; RESP 18; TEMP 98.5
--- NOTE | 2023-01-15 11:09 | P.DS ---
Providers Date of admission: 01/13/23 11:34 Attending physician: Shamir Monge MD Primary care physician: [facility] Course: The patient underwent a right laparoscopic-assisted robotic radical nephrectomy on 01/13/23. He has recuperated appropriately. The catheter is out and he is voiding well. His pain is reasonable. He wishes to be discharged home. He is ambulating and eating and his pain is controlled. His incisions look good. He will follow-up in the office in one week. He has been given a prescription of Quitman. The pathology report is pending his condition is good. Patient Condition at Discharge: Good Plan - Discharge Summary Discharge Rx Participant: No New Discharge Prescriptions: New HYDROcodone/APAP 5-325MG [Q[place] 5-325] 1 tab PO Q4HR PRN #14 tab PRN Reason: Pain No Action Metoprolol Tartrate 50 mg PO BID Insulin Glargine,Hum.rec.anlog [Lantus Solostar] 62 unit SQ BID Insulin Aspart [NovoLOG Flexpen] 20 unit SQ AC-TID hydroCHLOROthiazide [Hydrochlorothiazide] 25 mg PO DAILY Atorvastatin [Lipitor] 10 mg PO DAILY metFORMIN HCL [Glucophage] 1,000 mg PO BID Montelukast Sodium [Singulair] 10 mg PO HS Semaglutide [Ozempic] 2 mg SQ SA Losartan Potassium 25 mg PO DAILY Aspirin [Adult Low Dose Aspirin EC] 81 mg PO DAILY Vit B12(Unk) 1 tab PO DAILY Discharge Medication List Atorvastatin [Lipitor] 10 mg PO DAILY 12/18/15 [History] Insulin Aspart [NovoLOG Flexpen] 20 unit SQ AC-TID 12/18/15 [History] Insulin Glargine,Hum.rec.anlog [Lantus Solostar] 62 unit SQ BID 12/18/15 [History] Metoprolol Tartrate 50 mg PO BID 12/18/15 [History] hydroCHLOROthiazide [Hydrochlorothiazide] 25 mg PO DAILY 12/18/15 [History] metFORMIN HCL [Glucophage] 1,000 mg PO BID 12/22/15 [History] Montelukast Sodium [Singulair] 10 mg PO HS 08/16/19 [History] Semaglutide [Ozempic] 2 mg SQ SA 08/16/19 [History] Losartan Potassium 25 mg PO DAILY 12/02/22 [History] Vit B12(Unk) 1 tab PO DAILY 12/02/22 [History] Aspirin [Adult Low Dose Aspirin EC] 81 mg PO DAILY 01/05/23 [History] HYDROcodone/APAP 5-325MG [[place] 5-325] 1 tab PO Q4HR PRN #14 tab 01/15/23 [Rx] Follow up Appointment(s)/Referral(s): Shamir Monge MD [STAFF PHYSICIAN] - 1 Week Discharge Disposition: HOME SELF-CARE
[2023-01-15 11:43] LABS: Glucose,Whole Blood 122 mg/dL (70-110)
--- NOTE | 2023-01-21 10:08 | P.ANPRN ---
Procedure Note - Anesthesia - Nerve Block Performed Bilateral Erector Spinae Single Time Out Performed: Yes (1109) Date of Procedure: 01/13/23 Procedure Start Time: :09 Procedure Stop Time: :14 Location of Patient: PreOp Indication: Acute Post-Operative Pain, Requested by Surgeon Specifically requested for management of pain by : Shamir Monge Sedation Type: Sedate with meaningful contact maintained Preparation: Sterile Prep Position: Sitting Catheter: None Needle Types: Pajunk Needle Gauge: 21 (x2) Ultrasound used to visualize needle placement: Yes Ultrasound used to observe medication spread: Yes Injectate: 0.5% Ropivacaine (see comment for volume) (15cc +10cc nacl pf each side) Blood Aspirated: No Pain Paresthesia on Injection Noted: No Resistance on Injection: Normal Image Stored and Saved: Yes Events: Uneventful and Well Tolerated
--- NOTE | 2023-01-21 11:16 | CDI ---
Documentation Clarification Form Date: 01/21/2023 11:05:54 AM From: Leslie Davis Admit Date: 01/13/2023 11:34:00 AM Patient Name: Anselmo Lunsford Visit Number: [id number] Discharge Date: 01/15/2023 12:40:00 PM ATTENTION: The Clinical Documentation Specialists (CDI) and [facility] Coding Staff appreciate your assistance in clarifying documentation. Please respond to the clarification below the line at the bottom and electronically sign. The CDI & [facility] Coding staff will review the response and follow-up if needed. Please note: Queries are made part of the Legal Health Record. If you have any questions, please contact the author of this message via ITS. Dr. 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 History/risk factors: T2DM. HLD, HTN Clinical Indicators: This is a 72-year-old male with history of a 6 cm right- sidedrenal masswas found incidentally. On review ofimagingthere was evidence of a right-sided renal masswithrenal vein thrombus. Treatment: Robotic-assistedlaparoscopicright sidedradical nephrectomy Please clarify if you agree with the pathology report diagnosis of clear cellrenal cell carcinoma: [ ] Yes [ ] No [ ] Other (please specify) _Ask dr botello I didnt do the procedure [ ] Unable to determine MTDD
--- NOTE | 2023-01-26 05:37 | CDI ---
Documentation Clarification Form Date: 01/26/2023 From: Leslie Davis Admit Date: 01/13/2023 11:34:00 AM Patient Name: Anselmo Lunsford Visit Number: [id number] Discharge Date: 01/15/2023 12:40:00 PM ATTENTION: The Clinical Documentation Specialists (CDI) and [facility] Coding Staff appreciate your assistance in clarifying documentation. Please respond to the clarification below the line at the bottom and electronically sign. The CDI & [facility] Coding staff will review the response and follow-up if needed. Please note: Queries are made part of the Legal Health Record. If you have any questions, please contact the author of this message via ITS. Dr. 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 History/risk factors: T2DM. HLD, HTN Clinical Indicators: This is a 72-year-old male with history of a 6 cm right- sidedrenal masswas found incidentally. On review ofimagingthere was evidence of a right-sided renal masswithrenal vein thrombus. Treatment: Robotic-assistedlaparoscopicright sidedradical nephrectomy Please clarify if you agree with the pathology report diagnosis of clear cellrenal cell carcinoma: [ X ] Yes [ ] No [ ] Other (please specify) [ ] Unable to determine MTDD
== END 2023-01-15 12:40 | disposition home or self-care (01) | DRG 657 ==
LOC: OR 09:28 → 4SSUR 11:34
PROVIDERS: ADMIT Urology; ATTEND Urology
PROC: 8E0W4CZ Robotic Assisted Procedure of Trunk Region, Percutaneous Endoscopic Approach (ICD-10-PCS; principal; 2023-01-13 11:30)
PROC: 0TT04ZZ Resection of Right Kidney, Percutaneous Endoscopic Approach (ICD-10-PCS; principal; 2023-01-13 11:30)
DX: C64.1 Malignant neoplasm of right kidney, except renal pelvis (principal); I82.3 Embolism and thrombosis of renal vein; E11.9 Type 2 diabetes mellitus without complications; E78.5 Hyperlipidemia, unspecified; I10 Essential (primary) hypertension; Z96.642 Presence of left artificial hip joint; Z96.651 Presence of right artificial knee joint; Z87.442 Personal history of urinary calculi; Z88.0 Allergy status to penicillin
CPT/HCPCS: 64999; 80048; 85025; 88307

== ENCOUNTER → 2023-05-19 | Outpatient (CLI) | payer MEDICARE ==
--- NOTE | 2023-05-19 13:04 | XR ---
EXAMINATION TYPE: XR chest 2V DATE OF EXAM: 05/19/2023 11:45 AM CLINICAL INDICATION:Male, 73 years old with history of C64.1 renal ca; [facility] COMPARISON: 12/20/2022 CT TECHNIQUE: XR chest 2V Frontal and lateral views of the chest. FINDINGS: Lungs/Pleura: There is flattening of the diaphragm with increased lucency of the lungs. No evidence o f pneumothorax, pleural effusion or focal consolidation. Pulmonary vascularity: Unremarkable. Heart/mediastinum: Cardiomediastinal silhouette is unremarkable. Musculoskeletal: No acute osseous pathology. IMPRESSION: 1. No acute cardiopulmonary disease process. 2. COPD changes.
== END | disposition home or self-care (01) ==
LOC: RADMRIMAIN 11:20
PROVIDERS: ATTEND Urology
DX: C64.1 Malignant neoplasm of right kidney, except renal pelvis (principal); J44.9 Chronic obstructive pulmonary disease, unspecified
CPT/HCPCS: 71046; 74183; A9585

== ENCOUNTER 2023-06-28 08:05 | Day surgery (SDC) | payer MEDICARE ==
[2023-06-21 14:27] VITALS: BMI 34.7
[~2023-06-28 08:05] MED LIST changes: -CLINDAMYCIN 600 MG in DEXTROSE 5% IN WATER 50 ML IVPB PRN; -GENTAMICIN 120 MG in SODIUM CHLORIDE 0.9% 100 ML IVPB PRN; +LIDOCAINE 1% (10MG/ML) FOR IV START INTRADERMA PRN; -ONDANSETRON 4 MG/2 ML VIAL IVP ONE
[2023-06-28] MEDS: LACTATED RINGERS 1,000 ML IV SCH (08:26)
[2023-06-28 09:14] VITALS: RESP 16; TEMP 98
[2023-06-28] MEDS ORDERED: PROPOFOL 10 MG/ML 20 ML VIAL IV ONE (09:15)
--- NOTE | 2023-06-28 09:33 | P.PCN ---
Date of Procedure: 06/28/23 Procedure(s) Performed: BRIEF HISTORY: Patient is a 73-year-old pleasant white male scheduled for an elective colonoscopy as a part of evaluation of chronic diarrhea for the last, duration. Patient was diagnosed with metastatic hypernephroma and has been on chemotherapy for the last 6 months. He was getting Keytruda every 3 weeks and he started having diarrhea with 5-6 loose watery bowel movements with occasional bloody mucus in the stool. The Keytruda was stopped about 2 months ago and the diarrhea is gradually improving. No history of inflammatory bowel disease. PROCEDURE PERFORMED: Colonoscopy with biopsy and snare polypectomy. PREOPERATIVE DIAGNOSIS: Chronic diarrhea for months duration.. IV sedation per Anesthesia. PROCEDURE: After informed consent was obtained, the patient, was brought into the endoscopy unit. IV sedation was administered by Anesthesia under continuous monitoring. Digital rectal examination was normal. Initially the Olympus CF-160 flexible video colonoscope was then inserted in the rectum, gradually advanced into the cecum without any difficulty. Careful examination was performed as the scope was gradually being withdrawn. Ileocecal valve and the appendiceal orifice were visualized and appeared normal. Prep was excellent. Mucosa of the cecum, ascending colon, transverse colon, descending colon, appeared normal. In the descending colon there was a 5 mm polyp that was removed by cold snare polypectomy. In the proximal sigmoid colon there was a 1 cm polyp removed by cold snare polypectomy. There is evidence of colitis with mucosal erythema friability and some granularity noted in the sigmoid colon and rectum extending up to 30 cm from the anal verge and multiple biopsies were done from this area. Retroflexion was performed in the rectum and no lesions were seen. The patient tolerated the procedure well. IMPRESSION: Active proctosigmoiditis mucosa erythema, fibrillated and granularity and exudates extending up to 30 cm from the anal verge status post biopsies to evaluate for inflammatory bowel disease 5 mm descending colon polyp status post cold snare polypectomy 1 cm proximal sigmoid colon polyp status post snare polypectomy RECOMMENDATIONS: Findings of this examination were discussed with the patient as well as his family. He was advised to follow-up with the biopsy results. He will be seen in the office in 1 week..
[2023-06-28 09:46] LABS: Glucose,Whole Blood 158 mg/dL (70-110)
[2023-06-28 10:17] VITALS: BP 113/72; PULSE 64
[2023-06-28 13:16] LABS: Glucose,Whole Blood 151 mg/dL (70-110)
== END 2023-06-28 10:25 | disposition home or self-care (01) ==
LOC: ORWHC2ENDO 08:05
PROVIDERS: ATTEND Internal Medicine Gastroenterology
DX: D12.4 Benign neoplasm of descending colon (principal); D12.5 Benign neoplasm of sigmoid colon; K52.9 Noninfective gastroenteritis and colitis, unspecified; K62.89 Other specified diseases of anus and rectum; I10 Essential (primary) hypertension; E78.5 Hyperlipidemia, unspecified; E11.9 Type 2 diabetes mellitus without complications; M19.90 Unspecified osteoarthritis, unspecified site; Z79.84 Long term (current) use of oral hypoglycemic drugs; Z79.899 Other long term (current) drug therapy; Z98.890 Other specified postprocedural states
CPT/HCPCS: 45380; 45385; J2704; 88305

== ENCOUNTER → 2023-07-28 | Outpatient (CLI) | payer MEDICARE ==
--- NOTE | 2023-07-28 17:49 | CA ---
Transthoracic Echo Report Name: Anselmo Lunsford Age: 73 Gender: M : 1950 Exam Date: 07/28/2023 13:25 Exam Location: [facility] Ht (in): 73 Wt (lb): 260 Ordering Physician: Evan De Oliveira DO ([email or web address]) Attending/Referring Phys: Sybase Developer Mary Ann Paige RDCS Procedure CPT: Indications: R06.02 SOB Cardiac Hx: Technical Quality: Technically difficult study Contrast 1: Definity Total Dose (mL): 2 Contrast 2: Total Dose (mL): MEASUREMENTS (Male / Female) Normal Values 2D ECHO LV Diastolic Diameter PLAX 6.7 cm 4.2 - 5.9 / 3.9 - 5.3 cm LV Systolic Diameter PLAX 6.0 cm IVS Diastolic Thickness 1.0 cm 0.6 - 1.0 / 0.6 - 0.9 cm LVPW Diastolic Thickness 1.1 cm 0.6 - 1.0 / 0.6 - 0.9 cm LV Relative Wall Thickness 0.3 RV Internal Dim ED PLAX 3.4 cm LVOT Diameter 2.2 cm LV Diastolic Volume MOD BP 268.1 cm??? 67 - 155 / 56 - 104 cm??? LV Systolic Volume MOD BP 223.9 cm??? 22 - 58 / 19 - 49 cm??? LV Ejection Fraction MOD BP 16.5 % >= 55 % LV Cardiac Index MOD BP 1431.3 cm???/min???m??? LV Diastolic Volume MOD 4C 256.2 cm??? LV Systolic Volume MOD 4C 214.6 cm??? LV Ejection Fraction MOD 4C 16.3 % LV Cardiac Index MOD 4C 1350.2 cm???/min???m??? LV Diastolic Length 4C 9.8 cm LV Systolic Length 4C 9.0 cm LV Diastolic Volume MOD 2C 261.6 cm??? LV Systolic Volume MOD 2C 211.5 cm??? LV Ejection Fraction MOD 2C 19.1 % LV Cardiac Index MOD 2C 1620.1 cm???/min???m??? LV Diastolic Length 2C 10.6 cm LV Systolic Length 2C 9.9 cm LA Volume 188.7 cm??? 18 - 58 / 22 - 52 cm??? LA Volume Index 75.4 cm???/m??? 16 - 28 cm???/m??? Ascending Aorta Diameter 3.8 cm DOPPLER AV Peak Velocity 148.8 cm/s AV Peak Gradient 8.9 mmHg AV Mean Velocity 103.6 cm/s AV Mean Gradient 4.8 mmHg AV Velocity Time Integral 27.0 cm LVOT Peak Velocity 104.6 cm/s LVOT Peak Gradient 4.4 mmHg LVOT Velocity Time Integral 20.1 cm LVOT Stroke Volume 78.6 cm??? LVOT Stroke Volume Index 32.7 ml/m??? LVOT Cardiac Index 2543.8 cm???/min???m??? AV Area Cont Eq vti 2.9 cm??? AV Area Cont Eq pk 2.7 cm??? MV Peak Velocity 136.1 cm/s MV Peak Gradient 7.4 mmHg MV Mean Velocity 78.4 cm/s MV Mean Gradient 3.0 mmHg MV Velocity Time Integral 28.1 cm MR Peak Velocity 430.2 cm/s MR Peak Gradient 74.0 mmHg MR Flow Rate PISA 56.0 cm???/s MR ERO PISA 0.1 cm??? MR Regurgitant Volume PISA 17.3 cm??? PV Peak Velocity 66.2 cm/s PV Peak Gradient 1.8 mmHg FINDINGS Left Ventricle Left ventricular ejection fraction is estimated at 15-20 %. Moderately increased left ventricular diastolic diameter. Severely increased left ventricular diastolic volume. Severely increased left ventricular systolic volume. Severely decreased left ventricular ejection fraction. Right Ventricle Mild right ventricular dilatation with moderately reduced function. Unable to estimate right ventricular systolic pressure. Right Atrium Mild right atrial dilatation. Left Atrium Severely increased left atrial volume. Severely increased left atrial area. Mitral Valve Mitral valve thickened. No evidence for mitral valve prolapse. Mild mitral stenosis. Moderate mitral regurgitation. Aortic Valve Trileaflet aortic valve. No aortic valve stenosis or regurgitation. Tricuspid Valve Structurally normal tricuspid valve. No tricuspid stenosis. Trace tricuspid regurgitation. Pulmonic Valve Structurally normal pulmonic valve. No pulmonic stenosis. No pulmonic regurgitation. Pericardium No pericardial effusion. Aorta Normal size aortic root and proximal ascending aorta. CONCLUSIONS Reduced LV systolic function, dilated LV Dilated RV Biatrial enlargement Previewed by: Dr. Sharad Rogers MD (Electronically Signed) Final Date: 28 July 2023 17:48
== END | disposition home or self-care (01) ==
LOC: RADECHMAIN 13:19
PROVIDERS: ATTEND Internal Medicine
DX: I51.7 Cardiomegaly (principal)
CPT/HCPCS: C8929; Q9957; 93306

== ENCOUNTER → 2023-08-04 | Outpatient (CLI) | payer MEDICARE ==
[2023-08-04 14:20] LABS: HCT 35.6 % (39.6-50.0); HGB 11.1 g/dL (13.0-17.0); MCH 29.1 pg (27.0-32.0); MCHC 31.2 g/dL (32.0-37.0); MCV 93.2 FL (80.0-97.0); Mean Platelet Volume 10.3 FL (9.5-12.2); NRBC Per 100 WBC 0 X 10*3/uL (0.00-0.01); Platelet Count 244 X 10*3/uL (140-440); RBC 3.82 X 10*6/uL (4.40-5.60); RDW 13.8 % (11.5-14.5); WBC 5.37 X 10*3/uL (4.50-10.00)
[2023-08-04 14:48] LABS: Blood Urea Nitrogen 16.5 mg/dL (9.0-27.0); Chloride 98 mmol/L (96-109); Potassium 3.9 mmol/L (3.5-5.5); Sodium 135 mmol/L (135-145)
== END | disposition home or self-care (01) ==
LOC: LABPAT 10:02
PROVIDERS: ATTEND Internal Medicine
DX: Z01.812 Encounter for preprocedural laboratory examination (principal); R06.02 Shortness of breath
CPT/HCPCS: 80051; 82565; 84520; 85027

== ENCOUNTER 2023-08-10 11:26 | Day surgery (SDC) | payer MEDICARE ==
[2023-08-08 09:09] VITALS: BMI 34.2
[~2023-08-10 11:26] MED LIST changes: +ALPRAZolam 0.25 MG TAB PO PRN; +ALPRAZolam 0.5 MG TAB PO PRN; +HEPARIN SODIUM,PORCINE (1 ML) 2,500 UNIT in SODIUM CHLORIDE 0.9% 250 ML IRRIGATION PRN; +HEPARIN SODIUM,PORCINE 10,000 UNIT in SODIUM CHLORIDE 0.9% 1,000 ML IRRIGATION PRN; -LIDOCAINE 1% (10MG/ML) FOR IV START INTRADERMA PRN; +NITROGLYCERIN SL TABS 0.4 MG TAB SUBLINGUAL PRN
[2023-08-10 12:14] LABS: Glucose,Whole Blood 145 mg/dL (70-110)
[2023-08-10] MEDS: IV FLUID CONTINUATION 1,000 ML IV ONE (12:23)
[2023-08-10 12:26] VITALS: RESP 16; TEMP 97.6
[2023-08-10] MEDS: ASPIRIN 325 MG TAB PO STA (12:29)
[2023-08-10] MEDS: SODIUM CHLORIDE 0.9% 1,000 ML in EMPTY BAG 1 BAG IV SCH (12:30)
[2023-08-10] MEDS ORDERED: VERAPAMIL 2.5 MG/ML 2 ML AMP ONE (13:58)
[2023-08-10] MEDS ORDERED: LIDOCAINE 1% INJ 10MG/ML (20 ML MDV) ONE (13:58)
[2023-08-10] MEDS ORDERED: HEPARIN SODIUM 1,000 UN/ML (10ML VL) ONE (14:02)
[2023-08-10] MEDS ORDERED: fentaNYL (PF) 50 MCG/ML 2 ML AMP ONE (14:02)
[2023-08-10] MEDS: fentaNYL (PF) 50 MCG/ML 2 ML AMP IVP ONE (14:10)
[2023-08-10] MEDS: MIDAZOLAM 2 MG/2 ML VIAL IVP ONE (14:10)
[2023-08-10] MEDS: LIDOCAINE 1% INJ 10MG/ML (20 ML MDV) SQ ONE (14:16)
[2023-08-10] MEDS: HEPARIN SODIUM 1,000 UN/ML (10ML VL) IV ONE (14:19)
[2023-08-10] MEDS: IOPAMIDOL-370 100ML BTL INJ ONE (14:25)
--- NOTE | 2023-08-10 14:34 | P.CARDCATH ---
Description of Procedure: PROCEDURES PERFORMED: Left heart catheterization, bilateral coronary angiography, ultrasound guided arterial access INDICATION: cardiomyopathy EF 15-20% CONSENT:I have discussed the risks, benefits and alternative therapies for the above-mentioned procedure and for both sedation/analgesia as well as necessary blood product administration, if indicated, as they pertain to this patient. The patient has indicated understanding and acceptance of the risks and procedures discussed. PROCEDURE: After the risks, benefits and alternatives of the above mentioned procedure explained in detail with the patient, informed consent was obtained. Patient was taken to the catheterization lab and prepped and draped in usual fashion. Ultrasound guidance was used to assess for arterial access. 1% lidocaine was used to anesthetize the right radial artery. A 6-[place] sheath was placed in the right radial artery using modified Seldinger technique and ultrasound guidance. Left coronary angiography was performed with a 5-[place] JL 3.5 catheter and right coronary angiography was performed with a 5-[place] FR5 catheter in various views. A 5-[place] Citizen FR5 catheter was inserted into the left ventricle and pressure measurements were obtained. The right radial sheath was removed and a TR band was placed with hemostasis achieved. The patient tolerated the procedure well. Patient was transported back to the post catheterization holding area in stable condition. Conscious Sedation: Patient was monitored under the direct supervision of myself for conscious sedation using Versed and fentanyl for a total duration of 9 minutes HEMODYNAMICS: aorta: 109/62 LV: 105/8, LVEDP 17 SELECTIVE CORONARY ARTERIOGRAPHY: LEFT MAIN: The left main is a large caliber vessel which bifurcates into the LAD and circumflex. There is no significant stenosis. LEFT ANTERIOR DESCENDING CORONARY ARTERY: LAD is a large caliber vessel which wraps around to the apex. There is proximal LAD 30-40% stenosis and otherwise mild luminal irregularities of the mid and distal LAD 10-20% stenosis LEFT CIRCUMFLEX CORONARY ARTERY: Left circumflex is a moderate caliber vessel with mild 20% proximal OM1 stenosis and otherwise mild luminal irregularities. RIGHT CORONARY ARTERY: The right coronary artery is a large caliber vessel which gives off a PDA and PLV branch and is the dominant vessel. There is in ostial 20-30% stenosis and otherwise mild luminal irregularities FINAL IMPRESSION: 1. CAD as described above including proximal LAD 30-40%, OM1 20% and proximal RCA 20-30% stenosis 2. Mildly elevated left sided filling pressures PLAN: 1. Aggressive risk factor modification per most recent ACC/AHA guidelines. 2. Optimize heart failure regimen as able 3. Follow-up in the office in 1-2 weeks.
[2023-08-10 17:35] VITALS: BP 107/53; PULSE 70
== END 2023-08-10 17:37 | disposition home or self-care (01) ==
LOC: CATHCVL 11:26
PROVIDERS: ATTEND Internal Medicine
DX: I25.10 Atherosclerotic heart disease of native coronary artery without angina pectoris (principal); I42.9 Cardiomyopathy, unspecified; I50.9 Heart failure, unspecified
CPT/HCPCS: 93458; C1769; C1894; J2250; J2001; J3010; J1644; Q9967

== ENCOUNTER 2023-09-05 08:58 | Inpatient (IN) | payer MEDICARE ==
--- NOTE | 2023-09-05 09:16 | ED ---
General Adult HPI - General Chief complaint: Dizziness Stated complaint: Dizziness Time Seen by Provider: 09/05/23 08:59 Source: patient, family, RN/MD Mode of arrival: wheelchair Limitations: no limitations - History of Present Illness Initial comments: Dictation was produced using [employer] dictation software. please excuse any grammatical, word or spelling errors. Chief Complaint: 73-year-old male with cardiomyopathy presents to the ER for presyncope History of Present Illness: Patient 73-year-old male for the last 6 months he reports he has been getting worse and worse. Earlier in the year patient was diagnosed with a kidney mass had to have nephrectomy followed by immunotherapy. States that he was seen in the emergency department for shortness of breath when he was diagnosed with heart failure. Had ultrasound and was told by cardiology that he had 10 to 15% function of the left side of his heart. Patient was here in the building for cardiac rehab orientation. He was there sitting when all of a sudden he became flushed lightheaded and diaphoretic. He felt nauseated. who witnessed the event is at the bedside states that he did not fully pass out. Patient had no point had any palpitations or chest pain. The ROS documented in this emergency department record has been reviewed and confirmed by me. Those systems with pertinent positive or negative responses have been documented in the HPI. All other systems are other negative and/or noncontributory. - Related Data Home Medications Medication Instructions Recorded Confirmed Atorvastatin [Lipitor] 10 mg PO HS 12/18/15 08/10/23 Insulin Aspart [NovoLOG Flexpen] 1 - 15 unit SQ TID-W/MEALS 12/18/15 08/10/23 Insulin Glargine,Hum.rec.anlog 15 - 20 unit SQ BID PRN 12/18/15 08/10/23 [Lantus Solostar Pen] Metoprolol Tartrate 50 mg PO BID 12/18/15 08/10/23 metFORMIN HCL [Glucophage] 500 mg PO BID 12/22/15 08/10/23 Montelukast Sodium [Singulair] 10 mg PO HS 08/16/19 08/10/23 Aspirin [Adult Low Dose Aspirin EC] 81 mg PO QAM 01/05/23 08/10/23 hydroCHLOROthiazide 25 mg PO QAM 07/09/23 08/10/23 Klor-Con(Unknown Dose) 1 dose PO QAM 08/08/23 08/10/23 Losartan [Cozaar] 12.5 mg PO QAM 08/08/23 08/10/23 Mesalamine 4 tab PO QAM 08/08/23 08/10/23 Previous Rx's Medication Instructions Recorded Dapagliflozin Propanediol [Farxiga] 10 mg PO DAILY #90 tablet 08/10/23 Spironolactone [Aldactone] 12.5 mg PO DAILY #90 tablet 08/10/23 Allergies Allergy/AdvReac Type Severity Reaction Status Date / Time Penicillins Allergy "passed Verified 09/05/23 09:13 out" budesonide AdvReac "I Verified 09/05/23 09:13 couldn't breathe." Review of Systems ROS Statement: Those systems with pertinent positive or pertinent negative responses have been documented in the HPI. ROS Other: All systems not noted in ROS Statement are negative. 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 Type II diabetic IDDM. Kidney stones. History of Any Multi-Drug Resistant Organisms: None Reported Past Surgical History: Hernia Repair, Joint Replacement, Orthopedic Surgery Additional Past Surgical History / Comment(s): rt knee meniscus repair, left leg orif with screws, 12-22-15 total rt knee, lft hip replacement, rt and lt carpal tunnel, right nephrectomy Jan 2023. Past Anesthesia/Blood Transfusion Reactions: No Reported Reaction Additional Past Anesthesia/Blood Transfusion Reaction / Comment(s): no blood transfusion hx Past Psychological History: No Psychological Hx Reported Smoking Status: Former smoker Past Alcohol Use History: None Reported Past Drug Use History: None Reported - Past Family History Father Family Medical History: Cancer Additional Family Medical History / Comment(s): lung Mother Family Medical History: Asthma, Diabetes Mellitus Brother(s) Family Medical History: Cancer Additional Family Medical History / Comment(s): Pancreatic cancer General Exam - General Exam Comments Initial Comments: PHYSICAL EXAM: General Impression: Alert and oriented x3, not in acute distress HEENT: Normocephalic atraumatic, extra-ocular movements intact, pupils equal and reactive to light bilaterally, mucous membranes moist. Cardiovascular: Heart regular rate and rhythm Chest: Able to complete full sentences, no retractions, no tachypnea Abdomen: abdomen soft, non-tender, non-distended, no organomegaly Musculoskeletal: Pulses present and equal in all extremities, no peripheral edema Motor: no focal deficits noted Neurological: CN II-XII grossly intact, no focal motor or sensory deficits noted Skin: Intact with no visualized rashes Psych: Normal affect and mood Limitations: no limitations Course Vital Signs 09/05/23 09/05/23 09/05/23 09:02 09:15 09:30 Temperature 97.7 F Pulse Rate 71 66 67 Respiratory 20 22 18 Rate Blood Pressure 104/66 101/72 80/56 O2 Sat by Pulse 100 100 100 Oximetry 09/05/23 10:00 Temperature Pulse Rate 64 Respiratory 14 Rate Blood Pressure 93/58 O2 Sat by Pulse 99 Oximetry EKG Findings - EKG Comments: EKG Findings:: My EKG interpretation: Ventricular rate 70, sinus rhythm,. Oval to 13, cures 150, QTc 443. No DE prolongation, no QTC prolongation, no ST or T- wave changes noted. EKG compared to July 09, 2023 showing no changes. Overall, this EKG is unremarkable Medical Decision Making - Medical Decision Making Was pt. sent in by a medical professional or institution (, PA, SCRUMMASTER, urgent care, hospital, or group home...) When possible be specific @ -No Did you speak to anyone other than the patient for history (EMS, parent, family, police, friend...)? What history was obtained from this source @ -Some history obtained from at the bedside Did you review nursing and triage notes (agree or disagree)? Why? @ -I reviewed and agree with nursing and triage notes Were old charts reviewed (outside hosp., previous admission, EMS record, old EKG, old radiological studies, urgent care reports/EKG's, group home records)? Report findings @ -No old charts were reviewed Differential Diagnosis (chest pain, altered mental status, abdominal pain women, abdominal pain men, vaginal bleeding, musculoskeletal, weakness, fever, dyspnea, syncope, headache, dizziness, GI bleed, back pain, seizure, CVA, palpatations, mental health)? @ -Differential Syncope: Valvular disease, hypertrophic cardiomyopathy, pulmonary embolism, tamponade, tachycardia, bradycardia, MD, hypovolemia, hemorrhage, dissection, anemia, intracranial hemorrhage, seizure, hypoglycemia, carbon monoxide poisoning, this is not meant to be an all-inclusive list. EKG interpreted by me (3pts min.). @ -See above X-rays interpreted by me (1pt min.). @ -Chest x-ray shows no acute processes CT interpreted by me (1pt min.). @ -None done U/S interpreted by me (1pt. min.). @ -None done What testing was considered but not performed or refused? (CT, X-rays, U/S, labs)? Why? @ -None What meds were considered but not given or refused? Why? @ -None Was smoking cessation discussed for >3mins.? @ -No Were there social determinants of health that impacted care today? How? (Homelessness, low income, unemployed, alcoholism, drug addiction, transportation, low edu. Level, literacy, decrease access to med. care, long-term, rehab)? @ -No Was there de-escalation of care discussed even if they declined (Discuss DNR or withdrawal of care, Hospice)? DNR status @ -No What co-morbidities impacted this encounter? (DM, HTN, Smoking, COPD, CAD, Cancer, CVA, ARF, Chemo, Hep., AIDS, mental health diagnosis, sleep apnea, morbid obesity)? @ -Cardiomyopathy Was patient admitted / discharged? Hospital course, mention meds given and route, prescriptions, significant lab abnormalities, going to OR and other pertinent info. @ -73-year-old male presents to the emergency department with syncopal episode. Vital signs upon arrival shows slightly soft blood pressure. Laboratory evaluation shows acidosis with a bicarb of 17. Elevated renal markers which are on the upper end of what he has had in the past. Troponins baseline. Given patient's degree of cardiomyopathy will be admitted with consultation cardiology. Case discussed with Dr. Stone who is agreeable with admission. Did you discuss the management of the patient with other professionals (professionals i.e. , PA, SCRUMMASTER, lab, RT, psych nurse, home health care social worker, policewoman, teacher, career services officer, rn case mgr)? Give summary @ -See above Was critical care preformed (if so, how long)? @ -No Undiagnosed new problem with uncertain prognosis? @ -No Drug Therapy requiring intensive monitoring for toxicity (Heparin, Nitro, Insulin, Cardizem)? @ -No Were any procedures done? @ -No Diagnosis/symptom? Acute, or Chronic, or Acute on Chronic? Uncomplicated (without systemic symptoms) or Complicated (systemic symptoms)? @ -Syncope, history of cardiomyopathy Side effects of treatment? @ -No Exacerbation, Progression, or Severe Exacerbation? @ -No Poses a threat to life or bodily function? How? (Chest pain, [place], MD, pneumonia, PE, COPD, DKA, ARF, appy, cholecystitis, CVA, Diverticulitis, Homicidal, Suicidal, threat to staff... and all critical care pts) @ -yes - Lab Data Result diagrams: 09/05/23 09:15 09/05/23 09:15 Lab Results 09/05/23 09/05/23 09/05/23 Range/Units 09:15 09:15 09:15 WBC 5.3 (3.8-10.6) k/uL RBC 4.33 (4.30-5.90) m/uL Hgb 12.9 L (13.0-17.5) gm/dL Hct 40.1 (39.0-53.0) % MCV 92.7 (80.0-100.0) fL MCH 29.8 (25.0-35.0) pg MCHC 32.2 (31.0-37.0) g/dL RDW 13.8 (11.5-15.5) % Plt Count 218 (150-450) k/uL MPV 7.6 Neutrophils % 53 % Lymphocytes % 23 % Monocytes % 11 % Eosinophils % 9 % Basophils % 1 % Neutrophils # 2.8 (1.3-7.7) k/uL Lymphocytes # 1.2 (1.0-4.8) k/uL Monocytes # 0.6 (0-1.0) k/uL Eosinophils # 0.5 (0-0.7) k/uL Basophils # 0.0 (0-0.2) k/uL Hypochromasia Slight Sodium 136 L (137-145) mmol/L Potassium 5.0 (3.5-5.1) mmol/L Chloride 108 H (98-107) mmol/L Carbon Dioxide 17 L (22-30) mmol/L Anion Gap 11 mmol/L BUN 36 H (9-20) mg/dL Creatinine 1.71 H (0.66-1.25) mg/dL Est GFR (CKD-EPI)AfAm 44 (>60 ml/min/1.73 sqM) Est GFR (CKD-EPI)NonAf 38 (>60 ml/min/1.73 sqM) Glucose 181 H (74-99) mg/dL Calcium 9.6 (8.4-10.2) mg/dL Total Bilirubin 1.0 (0.2-1.3) mg/dL AST 34 (17-59) U/L ALT 31 (4-49) U/L Alkaline Phosphatase 63 (38-126) U/L Troponin I 0.023 (0.000-0.034) ng/mL Total Protein 6.7 (6.3-8.2) g/dL Albumin 3.8 (3.5-5.0) g/dL Disposition Clinical Impression: Cardiomyopathy Disposition: ADMITTED IP TO THIS HOSP Condition: Fair Referrals: Natanael Rivera Jr, DO [Primary Care Provider] - 1-2 days Decision Time: 10:21
[2023-09-05 09:31] LABS: Basophils % (A) 1 %; Eosinophils # (A) 0.5 k/uL (0-0.7); Eosinophils % (A) 9 %; HCT 40.1 % (39.0-53.0); HGB 12.9 gm/dL (13.0-17.5); Hypochromasia Slight; Lymphocytes # (A) 1.2 k/uL (1.0-4.8); Lymphocytes % (A) 23 %; MCH 29.8 pg (25.0-35.0); MCHC 32.2 g/dL (31.0-37.0); MCV 92.7 fL (80.0-100.0); Mean Platelet Volume 7.6; Monocytes # (A) 0.6 k/uL (0-1.0); Monocytes % (A) 11 %; Neutrophils # (A) 2.8 k/uL (1.3-7.7); Neutrophils % (A) 53 %; Platelet Count 218 k/uL (150-450); RBC 4.33 m/uL (4.30-5.90); RDW 13.8 % (11.5-15.5); WBC 5.3 k/uL (3.8-10.6)
[2023-09-05 09:41] LABS: ALT 31 U/L (4-49); AST 34 U/L (17-59); African American GFR (CKD) 44 (>60 ml/min/1.73 sqM); Albumin 3.8 g/dL (3.5-5.0); Alkaline Phosphatase 63 U/L (38-126); Anion Gap 11 mmol/L; Blood Urea Nitrogen 36 mg/dL (9-20); Calcium 9.6 mg/dL (8.4-10.2); Carbon Dioxide 17 mmol/L (22-30); Chloride 108 mmol/L (98-107); Glucose 181 mg/dL (74-99); Non-African American GFR(CKD) 38 (>60 ml/min/1.73 sqM); Sodium 136 mmol/L (137-145); Total Protein 6.7 g/dL (6.3-8.2)
--- NOTE | 2023-09-05 09:58 | XR ---
EXAMINATION TYPE: XR chest 2V DATE OF EXAM: 09/05/2023 COMPARISON: 07/09/2023 TECHNIQUE: PA and lateral views submitted. HISTORY: Chest pain FINDINGS: The lungs are clear and there is no pneumothorax, pleural effusion, or focal pneumonia. Heart size normal and no overt failure. Osseous structures demonstrate hypertrophic and degenerative changes of the spine. Bilateral shoulder arthropathy. Biapical pleural thickening. IMPRESSION: 1. No acute process.
[2023-09-05] MEDS ORDERED: NALOXONE 0.4 MG/ML 1 ML VIAL IV PRN (10:16)
[2023-09-05] MEDS: SODIUM CHLORIDE 0.9% 500 ML 500 ML IV STA (10:49)
[2023-09-05] MEDS: SODIUM CHLORIDE 0.9% 1,000 ML IV SCH (10:50)
[2023-09-05 10:53] LABS: Glucose,Whole Blood 145 mg/dL (70-110)
[2023-09-05] MEDS ORDERED: NON FORMULARY DRUG (Insulin Aspart [Novolog Flexpen] 100 UNIT/ML Insuln.Pen) SQ PRN (11:42)
[2023-09-05] MEDS ORDERED: DEXTROSE 50% SYRINGE 50 ML IVP PRN ×2 (11:51)
[2023-09-05] MEDS: MIDODRINE 5 MG TAB PO SCH (11:53)
[2023-09-05] MEDS: INSULIN ASPART (NovoLOG) 100 UNIT/ML VIAL SQ SCH (11:59)
--- NOTE | 2023-09-05 12:35 | P.CRDCN ---
History of Present Illness Consult date: 09/05/23 Reason for Consult (text): Syncope History of present illness: This is a 73-year-old male patient of Dr. De Oliveira with past medical history of hypertension, hyperlipidemia, diabetes mellitus type 2, ulcerative colitis, renal cell cancer status post nephrectomy in January 2023, nonischemic cardiomyopathy. We have been asked to evaluate the patient for syncope. Patient's states that they went to cardiac rehab and the patient suddenly developed sweating, nausea and seemed to be disoriented. Blood pressure was low and patient states he lost his vision. He states he has been drinking a lot of water. Blood pressure has been as low as 56/39 since presenting to the ER. Heart rate is in the 60s. Patient was last seen in the office on 08/17/2023 and at that time patient was taken off losartan and started on Entresto. This Farxiga was not affordable so patient was transition to Jardiance. Samples of Entresto and Jardiance were provided to the patient and metoprolol was decreased to 25 mg twice daily. Patient was then to start cardiac rehab as well. Patient was to follow-up in 4 weeks. Patient is seen today in the emergency center waiting for bed on the observation unit. He is status post 500 mL fluid bolus. EKG: Sinus rhythm with left bundle branch block Chest x-ray: No acute process Laboratory studies: WBC 5.3, hemoglobin 12.9. Sodium 136, potassium 5, chloride 108, CO2 17, BUN 36, creatinine 171. Troponin negative x 1. Home cardiac medications: Aspirin 81 mg daily, atorvastatin 10 mg at bedtime, Jardiance 10 mg daily, hydrochlorothiazide 25 mg daily, metoprolol tartrate 25 mg twice daily, potassium chloride 20 mill equivalents daily, Entresto 24-26 mg twice daily, spironolactone 12.5 mg daily. Cardiac catheterization performed 08/10/2023 revealed CAD with LAD 30 to 40%, OM1 20% and proximal RCA 20 to 30% stenosis. Mildly elevated left-sided filling pressures. Echocardiogram performed on 07/28/2023 revealed EF of 15 to 20%, dilated LV. Dilated RV. Biatrial enlargement. Review Of Systems: At the time of my exam: CONSTITUTIONAL: Denies fever or chills. HEENT: Denies blurred vision, vision changes, or eye pain. Denies hemoptysis CARDIOVASCULAR: Denies chest pain. Denies orthopnea. Denies PND. Denies palpitations RESPIRATORY: Denies shortness of breath. GASTROINTESTINAL: Denies abdominal pain. Denies nausea or vomiting. HEMATOLOGIC: Denies bleeding disorders. GENITOURINARY: Denies any blood in urine. SKIN: Denies puritis. Denies rash. Physical examination: Gen: This is a 73-year-old male in no acute distress. VS: reviewed HEENT: Head is atraumatic, normocephalic. Pupils equal, round. Sclerae is anicteric. NECK: Supple. No JVD. LUNGS: Clear to auscultation. No wheezes or rhonchi. No intercostal retractions. HEART: Regular rate and rhythm. No murmur. ABDOMEN: Soft No tenderness. EXTREMITIES: No pedal edema. No calf tenderness. NEUROLOGICAL: Patient is awake, alert and oriented x3. Assessment: Syncope secondary to volume depletion Hypotension Acute kidney injury Metabolic acidosis Chronic kidney disease Nonischemic cardiomyopathy Hypertension Hyperlipidemia Diabetes mellitus type 2 Ulcerative colitis Renal cell cancer status post nephrectomy in January 2023 Plan: Hold the following home cardiac medications: Entresto, metoprolol tartrate, hydrochlorothiazide, spironolactone Start patient on midodrine 5 mg 3 times daily Monitor blood pressure closely No need to repeat echocardiogram as this was performed in July. Further recommendations to follow based upon clinical course Thank you kindly for this consultation. Nurse practitioner note has been reviewed, I agree with documented findings and plan of care. Patient was seen and examined. 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 Type II diabetic IDDM. Kidney stones. History of Any Multi-Drug Resistant Organisms: None Reported Past Surgical History: Hernia Repair, Joint Replacement, Orthopedic Surgery Additional Past Surgical History / Comment(s): rt knee meniscus repair, left leg orif with screws, 12-22-15 total rt knee, lft hip replacement, rt and lt carpal tunnel, right nephrectomy Jan 2023. Past Anesthesia/Blood Transfusion Reactions: No Reported Reaction Additional Past Anesthesia/Blood Transfusion Reaction / Comment(s): no blood transfusion hx Past Psychological History: No Psychological Hx Reported Smoking Status: Former smoker Past Alcohol Use History: None Reported Past Drug Use History: None Reported - Past Family History Father Family Medical History: Cancer Additional Family Medical History / Comment(s): lung Mother Family Medical History: Asthma, Diabetes Mellitus Brother(s) Family Medical History: Cancer Additional Family Medical History / Comment(s): Pancreatic cancer Medications and Allergies Home Medications Medication Instructions Recorded Confirmed Type Atorvastatin [Lipitor] 10 mg PO HS 12/18/15 09/05/23 History Insulin Aspart [NovoLOG Flexpen] 1 - 15 unit SQ TID-W/MEALS PRN 12/18/15 09/05/23 History Insulin Glargine,Hum.rec.anlog 15 - 20 unit SQ BID PRN 12/18/15 09/05/23 History [Lantus Solostar Pen] Metoprolol Tartrate 25 mg PO BID 12/18/15 09/05/23 History metFORMIN HCL [Glucophage] 500 mg PO BID 12/22/15 09/05/23 History Montelukast Sodium [Singulair] 10 mg PO HS 08/16/19 09/05/23 History Aspirin [Adult Low Dose Aspirin EC] 81 mg PO DAILY 01/05/23 09/05/23 History hydroCHLOROthiazide 25 mg PO DAILY 07/09/23 09/05/23 History Mesalamine 4.8 gm PO DAILY 08/08/23 09/05/23 History Spironolactone [Aldactone] 12.5 mg PO DAILY #90 tablet 08/10/23 09/05/23 Rx Empagliflozin [Jardiance] 10 mg PO DAILY 09/05/23 09/05/23 History Potassium Chloride ER [K-Dur 20] 20 meq PO DAILY 09/05/23 09/05/23 History Sacubitril/Valsartan [Entresto 24 1 tab PO BID 09/05/23 09/05/23 History mg-26 mg Tablet] Allergies Allergy/AdvReac Type Severity Reaction Status Date / Time Penicillins Allergy "passed Verified 09/05/23 10:43 out" budesonide AdvReac "I Verified 09/05/23 10:43 couldn't breathe." Physical Exam Vitals: Vital Signs Temp Pulse Resp BP Pulse Ox 09/05/23 10:50 64 22 56/39 99 09/05/23 10:30 65 14 77/49 100 09/05/23 10:20 65 14 93/58 98 09/05/23 10:00 64 14 93/58 99 09/05/23 09:30 67 18 80/56 100 09/05/23 09:15 66 22 101/72 100 09/05/23 09:02 97.7 F 71 20 104/66 100 Intake and Output 09/04/23 09/05/23 09/05/23 22:59 06:59 14:59 Other: Weight 106.141 kg Results 09/05/23 09:15 09/05/23 09:15 Cardiac Enzymes 09/05/23 09/05/23 Range/Units 09:15 09:15 AST 34 (17-59) U/L Troponin I 0.023 (0.000-0.034) ng/mL CBC 09/05/23 Range/Units 09:15 WBC 5.3 (3.8-10.6) k/uL RBC 4.33 (4.30-5.90) m/uL Hgb 12.9 L (13.0-17.5) gm/dL Hct 40.1 (39.0-53.0) % Plt Count 218 (150-450) k/uL Comprehensive Metabolic Panel 09/05/23 Range/Units 09:15 Sodium 136 L (137-145) mmol/L Potassium 5.0 (3.5-5.1) mmol/L Chloride 108 H (98-107) mmol/L Carbon Dioxide 17 L (22-30) mmol/L BUN 36 H (9-20) mg/dL Creatinine 1.71 H (0.66-1.25) mg/dL Glucose 181 H (74-99) mg/dL Calcium 9.6 (8.4-10.2) mg/dL AST 34 (17-59) U/L ALT 31 (4-49) U/L Alkaline Phosphatase 63 (38-126) U/L Total Protein 6.7 (6.3-8.2) g/dL Albumin 3.8 (3.5-5.0) g/dL Current Medications Generic Name Dose Route Start Last Admin Trade Name Freq PRN Reason Stop Dose Admin Sodium Chloride 1,000 mls @ 20 mls/hr 09/05/23 10:30 09/05/23 10:50 Saline 0.9% IV 20 mls/hr .Q24H KYLAH Administration Naloxone HCl 0.2 mg 09/05/23 10:16 Naloxone 0.4 Mg/Ml 1 Ml Vial IV Q2M PRN Opioid Reversal Intake and Output 09/04/23 09/05/23 09/05/23 22:59 06:59 14:59 Other: Weight 106.141 kg Patient Weight 09/06/23 06:59 Weight 106.141 kg 09/05/23 09:15 09/05/23 09:15
[2023-09-05] MEDS: SODIUM CHLORIDE 0.9% 500 ML 250 ML IV ONE (13:51)
[2023-09-05] MEDS: SODIUM CHLORIDE 0.9% 250 ML IV SCH (13:51)
[2023-09-05] MEDS: BALSALAZIDE DISODIUM 750 MG CAPSULE PO SCH (15:24)
[2023-09-05 18:22] LABS: Glucose,Whole Blood 107 mg/dL (70-110)
[2023-09-05 20:45] LABS: Glucose,Whole Blood 161 mg/dL (70-110)
[2023-09-05] MEDS: metFORMIN 500 MG TAB PO SCH (21:02)
[2023-09-05] MEDS: ATORVASTATIN 10 MG TAB PO SCH (21:02)
[2023-09-05] MEDS: INSULIN DETEMIR (LEVEMIR) 100 UNIT/ML SYR SQ SCH (21:04)
[2023-09-06 05:49] LABS: Glucose,Whole Blood 102 mg/dL (70-110)
[2023-09-06] MEDS: ASPIRIN 81 MG PO SCH (08:36)
[2023-09-06] MEDS: DAPAGLIFLOZIN PROPANEDIOL 5 MG TABLET PO SCH (08:36)
[2023-09-06 10:33] LABS: African American GFR (CKD) 48 (>60 ml/min/1.73 sqM); Anion Gap 9 mmol/L; Blood Urea Nitrogen 31 mg/dL (9-20); Calcium 9.2 mg/dL (8.4-10.2); Carbon Dioxide 18 mmol/L (22-30); Chloride 110 mmol/L (98-107); Glucose 114 mg/dL (74-99); Non-African American GFR(CKD) 42 (>60 ml/min/1.73 sqM); Potassium 4.7 mmol/L (3.5-5.1); Sodium 137 mmol/L (137-145)
[2023-09-06 11:25] LABS: Glucose,Whole Blood 135 mg/dL (70-110)
--- NOTE | 2023-09-06 11:48 | P.PN ---
Subjective HISTORY OF PRESENT ILLNESS: This is a 73-year-old male patient of Dr. De Oliveira with past medical history of hypertension, hyperlipidemia, diabetes mellitus type 2, ulcerative colitis, renal cell cancer status post nephrectomy in January 2023, nonischemic cardiomyopathy. We have been asked to evaluate the patient for syncope. Patient's states that they went to cardiac rehab and the patient suddenly developed sweating, nausea and seemed to be disoriented. Blood pressure was low and patient states he lost his vision. He states he has been drinking a lot of water. Blood pressure has been as low as 56/39 since presenting to the ER. Heart rate is in the 60s. Patient was last seen in the office on 08/17/2023 and at that time patient was taken off losartan and started on Entresto. This Farxiga was not affordable so patient was transition to Jardiance. Samples of Entresto and Jardiance were provided to the patient and metoprolol was decreased to 25 mg twice daily. Patient was then to start cardiac rehab as well. Patient was to follow-up in 4 weeks. Patient is seen today in the emergency center waiting for bed on the observation unit. He is status post 500 mL fluid bolus. EKG: Sinus rhythm with left bundle branch block Chest x-ray: No acute process Laboratory studies: WBC 5.3, hemoglobin 12.9. Sodium 136, potassium 5, chloride 108, CO2 17, BUN 36, creatinine 171. Troponin negative x 1. Home cardiac medications: Aspirin 81 mg daily, atorvastatin 10 mg at bedtime, Jardiance 10 mg daily, hydrochlorothiazide 25 mg daily, metoprolol tartrate 25 mg twice daily, potassium chloride 20 mill equivalents daily, Entresto 24-26 mg twice daily, spironolactone 12.5 mg daily. Cardiac catheterization performed 08/10/2023 revealed CAD with LAD 30 to 40%, OM1 20% and proximal RCA 20 to 30% stenosis. Mildly elevated left-sided filling pressures. Echocardiogram performed on 07/28/2023 revealed EF of 15 to 20%, dilated LV. D ilated RV. Biatrial enlargement. 09/06/2023 Patient examined this morning at the bedside. Patient currently denies any chest pain or pressure. He denies any shortness of breath. Patient states he is feeling significantly better today compared to yesterday. Patient's blood pressures have improved with a systolic in the low 100s. PHYSICAL EXAM: VITAL SIGNS: Reviewed. GENERAL: Well-developed in no acute distress. NECK: Supple. No JVD or thyromegaly LUNGS: Respirations even and unlabored. Lungs essentially clear to auscultation bilaterally. HEART: Regular rate and rhythm. S1 and S2 heard. EXTREMITIES: Normal range of motion. No clubbing or cyanosis. Peripheral pulses intact. No lower extremity edema ASSESSMENT: Syncope due to hypotension secondary to volume depletion Hypotension Acute kidney injury Metabolic acidosis Chronic kidney disease Nonobstructive CAD, per cardiac catheterization 07/2023 Nonischemic cardiomyopathy Hypertension Hyperlipidemia Diabetes mellitus type 2 Ulcerative colitis Renal cell cancer status post nephrectomy in January 2023 PLAN: Continue to hold the following home cardiac medications: Entresto, metoprolol tartrate, hydrochlorothiazide, spironolactone Continue midodrine Obtain orthostatic vital signs Continue to monitor blood pressure Discharge per medicine Further recommendations pending patient course Nurse practitioner note has been reviewed by physician. Signing provider agrees with the documented findings, assessment, and plan of care documented by [employer] as a scribe. Objective - Vital Signs Vital signs: Vital Signs Temp 97.8 F 09/06/23 08:00 Pulse 67 09/06/23 11:30 Resp 20 09/06/23 11:30 BP 98/59 09/06/23 11:30 Pulse Ox 96 09/06/23 11:30 FiO2 Intake & Output 09/05/23 09/06/23 09/06/23 18:59 06:59 18:59 Intake Total 240 Output Total 250 Balance -250 240 Weight 106.141 kg 108.1 kg Intake: Oral 240 Output: Urine 250 Other: Voiding Method Toilet Toilet # Voids 2 1 - Labs CBC & Chem 7: 09/05/23 09:15 09/06/23 09:50 Labs: Abnormal Lab Results - Last 24 Hours (Table) 09/05/23 09/06/23 09/06/23 Range/Units 20:43 09:50 11:24 Chloride 110 H (98-107) mmol/L Carbon Dioxide 18 L (22-30) mmol/L BUN 31 H (9-20) mg/dL Creatinine 1.60 H (0.66-1.25) mg/dL Glucose 114 H (74-99) mg/dL POC Glucose (mg/dL) 161 H 135 H (70-110) mg/dL
--- NOTE | 2023-09-06 12:48 | P.HPIM ---
History of Present Illness H&P Date: 09/06/23 This is a 73-year-old gentleman with past medical history significant for renal cell carcinoma status post nephrectomy 02/05 status post immunotherapy, diabetes mellitus II, hearing disorder, CAD, nonischemic cardiomyopathy, hypertension, hyperlipidemia, prior nicotine dependence, ulcerative colitis and multiple other medical issues presented to the ER with complaints of near syncope. Reports he w as at cardiac rehab., abruptly became diaphoretic, lightheaded and flushed accompanied by nausea, loss vision and mild confusion. Denies chest pain, palpitations or shortness of breath. He states his blood pressure was low and he had been drinking a significantly large amount of water. Recent cardiac catheterization 08/10/2023 reporting CAD, proximal LAD 30 to 40%, OM 120% proximal RCA 20 to 30% stenosis, mildly elevated left-sided filling pressures, EF 15 to 20% dilated LV and RV, biatrial enlargement. Medication changes at cardiology visit on 08/17/2023, including the addition of Entresto and Jardiance, with losartan discontinued. Blood pressures soft in the ER, down to 56/39, currently low 100s, status post fluid bolus of 500 mL. Troponin negative x 1 EKG reported sinus rhythm with left bundle branch block. Hematology unremarkable, chloride 108, bicarb 18, BUN 36 creatinine 1.79. Sugars controlled afebrile, normal WBC.Chest x-ray reported no acute process. Review of Systems ROS Statement: Those systems with pertinent positive or pertinent negative responses have been documented in the HPI. ROS Other: All systems not noted in ROS Statement are negative. 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 Type II diabetic IDDM. Kidney stones. History of Any Multi-Drug Resistant Organisms: None Reported Past Surgical History: Hernia Repair, Joint Replacement, Orthopedic Surgery Additional Past Surgical History / Comment(s): rt knee meniscus repair, left leg orif with screws, 12-22-15 total rt knee, lft hip replacement, rt and lt carpal tunnel, right nephrectomy Jan 2023. Past Anesthesia/Blood Transfusion Reactions: No Reported Reaction Additional Past Anesthesia/Blood Transfusion Reaction / Comment(s): no blood transfusion hx Past Psychological History: No Psychological Hx Reported Smoking Status: Former smoker Past Alcohol Use History: None Reported Additional Past Alcohol Use History / Comment(s): quit 1975, smoked less than 1ppd for approx 5yrs Past Drug Use History: None Reported - Past Family History Father Family Medical History: Cancer Additional Family Medical History / Comment(s): lung Mother Family Medical History: Asthma, Diabetes Mellitus Brother(s) Family Medical History: Cancer Additional Family Medical History / Comment(s): Pancreatic cancer Medications and Allergies Home Medications Medication Instructions Recorded Confirmed Type Atorvastatin [Lipitor] 10 mg PO HS 12/18/15 09/05/23 History Insulin Aspart [NovoLOG Flexpen] 1 - 15 unit SQ TID-W/MEALS PRN 12/18/15 09/05/23 History Insulin Glargine,Hum.rec.anlog 15 - 20 unit SQ BID PRN 12/18/15 09/05/23 History [Lantus Solostar Pen] Metoprolol Tartrate 25 mg PO BID 12/18/15 09/05/23 History metFORMIN HCL [Glucophage] 500 mg PO BID 12/22/15 09/05/23 History Montelukast Sodium [Singulair] 10 mg PO HS 08/16/19 09/05/23 History Aspirin [Adult Low Dose Aspirin EC] 81 mg PO DAILY 01/05/23 09/05/23 History hydroCHLOROthiazide 25 mg PO DAILY 07/09/23 09/05/23 History Mesalamine 4.8 gm PO DAILY 08/08/23 09/05/23 History Spironolactone [Aldactone] 12.5 mg PO DAILY #90 tablet 08/10/23 09/05/23 Rx Empagliflozin [Jardiance] 10 mg PO DAILY 09/05/23 09/05/23 History Potassium Chloride ER [K-Dur 20] 20 meq PO DAILY 09/05/23 09/05/23 History Sacubitril/Valsartan [Entresto 24 1 tab PO BID 09/05/23 09/05/23 History mg-26 mg Tablet] Allergies Allergy/AdvReac Type Severity Reaction Status Date / Time Penicillins Allergy "passed Verified 09/05/23 10:43 out" budesonide AdvReac "I Verified 09/05/23 10:43 couldn't breathe." Physical Exam Osteopathic Statement: *. No significant issues noted on an osteopathic structural exam other than those noted in the History and Physical/Consult. Vitals: Vital Signs Temp Pulse Pulse Resp BP BP Pulse Ox 09/06/23 08:00 97.8 F 84 18 98/60 99 09/06/23 03:57 98.3 F 78 18 104/59 94 L 09/05/23 23:27 98.1 F 70 18 106/64 98 09/05/23 20:35 97.8 F 89 18 126/68 98 09/05/23 20:13 72 18 118/74 98 09/05/23 18:00 70 15 107/64 98 09/05/23 17:30 68 18 123/74 99 09/05/23 17:00 77 16 103/54 99 09/05/23 16:30 69 15 107/56 99 09/05/23 16:00 68 16 96/64 98 09/05/23 15:30 64 16 93/61 97 09/05/23 15:00 60 15 96/53 97 09/05/23 14:30 61 15 88/56 97 09/05/23 14:00 60 15 85/50 99 09/05/23 13:30 61 9 L 88/51 100 09/05/23 13:21 56 L 18 88/51 99 09/05/23 13:00 60 16 78/48 98 09/05/23 12:56 97.8 F 56 L 15 78/43 97 09/05/23 12:45 57 L 17 91/50 97 09/05/23 12:30 63 18 74/48 100 09/05/23 12:00 58 L 11 L 96/56 100 09/05/23 11:30 65 16 96/56 96 09/05/23 11:15 68 16 87/51 100 09/05/23 11:00 60 22 95/49 98 09/05/23 10:50 64 22 56/39 99 Intake and Output 09/05/23 09/06/23 09/06/23 22:59 06:59 14:59 Intake Total 240 Output Total 250 Balance -250 240 Intake: Oral 240 Output: Urine 250 Other: Voiding Method Toilet Toilet Toilet # Voids 1 2 1 Weight 106.141 kg 108.1 kg Results CBC & Chem 7: 09/05/23 09:15 09/06/23 09:50 Labs: Abnormal Lab Results - Last 24 Hours (Table) 09/05/23 09/05/23 09/06/23 Range/Units 10:51 20:43 09:50 Chloride 110 H (98-107) mmol/L Carbon Dioxide 18 L (22-30) mmol/L BUN 31 H (9-20) mg/dL Creatinine 1.60 H (0.66-1.25) mg/dL Glucose 114 H (74-99) mg/dL POC Glucose (mg/dL) 145 H 161 H (70-110) mg/dL Thrombosis Risk Factor Assmnt - Choose All That Apply Any of the Below Risk Factors Present?: Yes Each Factor Represents 1 point: Obesity (BMI >25) Other Risk Factors: Yes Each Risk Factor Represents 3 Points: Age 75 years or older Thrombosis Risk Factor Assessment Total Risk Factor Score: 4 Thrombosis Risk Factor Assessment Level: Moderate Risk Assessment and Plan Assessment: Near syncope secondary to hypotension, dehydration Hypotension, on midodrine Acute renal failure secondary to the above Metabolic acidosis Chronic kidney disease, GFR 42, post nephrectomy, stage III Renal cell cancer status post nephrectomy in January 2023, status post immunotherapy with Keytruda Nonischemic cardiomyopathy Hypertension, history of Hyperlipidemia Diabetes mellitus type 2 Ulcerative colitis Morbid obesity, BMI 31 point Osteoarthritis Plan: Continue on current medication regimen ,monitoring and symptomatic treatment. Orthostatic vital signs ordered. evaluated by cardiology with recommendations noted including addition of midodrine. The impression and plan of care has been dictated as directed. : I performed a history and examination of this patient, discussed the same with the dictator. I agree with the dictator's note ,documented as a scribe. Any additional findings or plans will be noted.
[2023-09-06 16:50] LABS: Glucose,Whole Blood 120 mg/dL (70-110)
[2023-09-06 19:57] LABS: Glucose,Whole Blood 164 mg/dL (70-110)
[2023-09-07 06:20] LABS: Glucose,Whole Blood 114 mg/dL (70-110)
[2023-09-07 09:00] VITALS: TEMP 97.7
[2023-09-07 11:46] VITALS: BP 103/54; PULSE 85; RESP 17
[2023-09-07 11:53] LABS: Glucose,Whole Blood 146 mg/dL (70-110)
--- NOTE | 2023-09-07 13:24 | P.DS ---
Providers Date of admission: 09/05/23 15:43 Expected date of discharge: 09/07/23 Attending physician: Natanael Rivera Consults: 09/05/23 10:16 Consult Physician Routine Consulting Provider: Evan De Oliveira Consult Reason/Comments: syncope Do you want consulting provider notified?: Yes Primary care physician: [facility] Hospital Course: Near syncope secondary to hypotension, dehydration Hypotension, on midodrine Acute renal failure secondary to the above, improving Metabolic acidosis Chronic kidney disease, GFR 42, post nephrectomy, stage III Renal cell cancer status post nephrectomy in January 2023, status post immunotherapy with Keytruda Nonischemic cardiomyopathy Hypertension, history of Hyperlipidemia Diabetes mellitus type 2 Ulcerative colitis Morbid obesity, BMI 31 point Osteoarthritis Hospital course:This is a 73-year-old gentleman with past medical history significant for renal cell carcinoma status post nephrectomy 02/05 status post immunotherapy, diabetes mellitus II, hearing disorder, CAD, nonischemic cardiomyopathy, hypertension, hyperlipidemia, prior nicotine dependence, ulcerative colitis and multiple other medical issues presented to the ER with complaints of near syncope. Reports he was at cardiac rehab., abruptly became diaphoretic, lightheaded and flushed accompanied by nausea, loss vision and mild confusion. Denies chest pain, palpitations or shortness of breath. He states his blood pressure was low and he had been drinking a significantly large amount of water. Reports he normally drinks 32 ounces x 3 daily and and urinates 4 times daily. Recent cardiac catheterization 08/10/2023 reporting CAD, proximal LAD 30 to 40%, OM 120% proximal RCA 20 to 30% stenosis, mildly elevated left- sided filling pressures, EF 15 to 20% dilated LV and RV, biatrial enlargement. Medication changes at cardiology visit on 08/17/2023, including the addition of Entresto and Jardiance, with losartan discontinued. Blood pressures soft in the ER, down to 56/39, currently low 100s, status post fluid bolus of 500 mL. Troponin negative x 1 EKG reported sinus rhythm with left bundle branch block. Hematology unremarkable, chloride 108, bicarb 18, BUN 36 creatinine 1.79. Sugars controlled afebrile, normal WBC.Chest x-ray reported no acute process. Orthostatic vital signs ordered. evaluated by cardiology, Entresto, metoprolol, hydrochlorothiazide and spironolactone placed on hold with midodrine initiated. Significant clinical improvement. Negative for orthostatic hypotension, blood pressure improved, denies chest pain, palpitations or shortness of breath. Denies lightheadedness, dizziness or focal deficits. Patient has been cleared for discharge by cardiology, will continue holding Entresto, metoprolol, hydrochlorothiazide and spironolactone-to be reevaluated at follow-up outpatient with cardiology. Patient will be discharged on midodrine, Jardiance, Lipitor, aspirin in addition to Singulair, NovoLog, metformin, Levemir and mesalamine. Patient will be discharged home today in a stable condition with guarded prognosis. The impression and plan of care has been dictated as directed. : I performed a history and examination of this patient, discussed the same with the dictator. I agree with the dictator's note ,documented as a scribe. Any additional findings or plans will be noted. Patient Condition at Discharge: Stable Plan - Discharge Summary Discharge Rx Participant: No New Discharge Prescriptions: New Insulin Detemir (Levemir) [Levemir] 15 unit SQ HS each Midodrine [ProAmatine] 5 mg PO AC-TID #90 tab Continue Insulin Aspart [NovoLOG Flexpen] 1 - 15 unit SQ TID-W/MEALS PRN PRN Reason: Blood Sugar - High Atorvastatin [Lipitor] 10 mg PO HS metFORMIN HCL [Glucophage] 500 mg PO BID Montelukast Sodium [Singulair] 10 mg PO HS Aspirin [Adult Low Dose Aspirin EC] 81 mg PO DAILY Mesalamine 4.8 gm PO DAILY Empagliflozin [Jardiance] 10 mg PO DAILY Discontinued Metoprolol Tartrate 25 mg PO BID Insulin Glargine,Hum.rec.anlog [Lantus Solostar Pen] 15 - 20 unit SQ BID PRN PRN Reason: Blood Sugar - High Potassium Chloride ER [K-Dur 20] 20 meq PO DAILY Sacubitril/Valsartan [Entresto 24 mg-26 mg Tablet] 1 tab PO BID hydroCHLOROthiazide 25 mg PO DAILY Spironolactone [Aldactone] 12.5 mg PO DAILY #90 tablet Discharge Medication List Atorvastatin [Lipitor] 10 mg PO HS 12/18/15 [History] Insulin Aspart [NovoLOG Flexpen] 1 - 15 unit SQ TID-W/MEALS PRN 12/18/15 [History] metFORMIN HCL [Glucophage] 500 mg PO BID 12/22/15 [History] Montelukast Sodium [Singulair] 10 mg PO HS 08/16/19 [History] Aspirin [Adult Low Dose Aspirin EC] 81 mg PO DAILY 01/05/23 [History] Mesalamine 4.8 gm PO DAILY 08/08/23 [History] Empagliflozin [Jardiance] 10 mg PO DAILY 09/05/23 [History] Insulin Detemir (Levemir) [Levemir] 15 unit SQ HS each 09/07/23 [Rx] Midodrine [ProAmatine] 5 mg PO AC-TID #90 tab 09/07/23 [Rx] Follow up Appointment(s)/Referral(s): Natanael Rivera Jr, DO [Primary Care Provider] - 3 Days Evan De Oliveira DO [STAFF PHYSICIAN] - 1 Week Ambulatory/Diagnostic Orders: Basic Metabolic Panel [LAB.AMB] Time Frame: 3 Days, Location: None Selected
--- NOTE | 2023-09-07 13:32 | P.PN ---
Subjective HISTORY OF PRESENT ILLNESS: This is a 73-year-old male patient of Dr. De Oliveira with past medical history of hypertension, hyperlipidemia, diabetes mellitus type 2, ulcerative colitis, renal cell cancer status post nephrectomy in January 2023, nonischemic cardiomyopathy. We have been asked to evaluate the patient for syncope. Patient's states that they went to cardiac rehab and the patient suddenly developed sweating, nausea and seemed to be disoriented. Blood pressure was low and patient states he lost his vision. He states he has been drinking a lot of water. Blood pressure has been as low as 56/39 since presenting to the ER. Heart rate is in the 60s. Patient was last seen in the office on 08/17/2023 and at that time patient was taken off losartan and started on Entresto. This Farxiga was not affordable so patient was transition to Jardiance. Samples of Entresto and Jardiance were provided to the patient and metoprolol was decreased to 25 mg twice daily. Patient was then to start cardiac rehab as well. Patient was to follow-up in 4 weeks. Patient is seen today in the emergency center waiting for bed on the observation unit. He is status post 500 mL fluid bolus. EKG: Sinus rhythm with left bundle branch block Chest x-ray: No acute process Laboratory studies: WBC 5.3, hemoglobin 12.9. Sodium 136, potassium 5, chloride 108, CO2 17, BUN 36, creatinine 171. Troponin negative x 1. Home cardiac medications: Aspirin 81 mg daily, atorvastatin 10 mg at bedtime, Jardiance 10 mg daily, hydrochlorothiazide 25 mg daily, metoprolol tartrate 25 mg twice daily, potassium chloride 20 mill equivalents daily, Entresto 24-26 mg twice daily, spironolactone 12.5 mg daily. Cardiac catheterization performed 08/10/2023 revealed CAD with LAD 30 to 40%, OM1 20% and proximal RCA 20 to 30% stenosis. Mildly elevated left-sided filling pressures. Echocardiogram performed on 07/28/2023 revealed EF of 15 to 20%, dilated LV. D ilated RV. Biatrial enlargement. 09/06/2023 Patient examined this morning at the bedside. Patient currently denies any chest pain or pressure. He denies any shortness of breath. Patient states he is feeling significantly better today compared to yesterday. Patient's blood pressures have improved with a systolic in the low 100s. 09/07/2023 Patient examined this morning at the bedside. Patient currently denies chest pain or pressure. He denies shortness of breath. Vital signs are stable. He denies dizziness or lightheadedness. PHYSICAL EXAM: VITAL SIGNS: Reviewed. GENERAL: Well-developed in no acute distress. NECK: Supple. No JVD or thyromegaly LUNGS: Respirations even and unlabored. Lungs essentially clear to auscultation bilaterally. HEART: Regular rate and rhythm. S1 and S2 heard. EXTREMITIES: Normal range of motion. No clubbing or cyanosis. Peripheral pulses intact. No lower extremity edema ASSESSMENT: Syncope due to hypotension secondary to volume depletion Hypotension Acute kidney injury Metabolic acidosis Chronic kidney disease Nonobstructive CAD, per cardiac catheterization 07/2023 Nonischemic cardiomyopathy Hypertension Hyperlipidemia Diabetes mellitus type 2 Ulcerative colitis Renal cell cancer status post nephrectomy in January 2023 PLAN: Continue to hold the following home cardiac medications: Entresto, metoprolol tartrate, hydrochlorothiazide, spironolactone Continue midodrine Continue to monitor blood pressure Discharge per medicine Further recommendations pending patient course Nurse practitioner note has been reviewed by physician. Signing provider agrees with the documented findings, assessment, and plan of care documented by [employer]IT OPERATOR as a scribe. Objective - Vital Signs Vital signs: Vital Signs Temp 97.7 F 09/07/23 08:00 Pulse 85 09/07/23 11:44 Resp 17 09/07/23 11:44 BP 103/54 09/07/23 11:44 Pulse Ox 98 09/07/23 11:44 FiO2 Intake & Output 09/06/23 09/07/23 09/07/23 18:59 06:59 18:59 Intake Total 1560 900 Balance 1560 900 Weight 108.3 kg Intake: Oral 1560 900 Other: Voiding Method Toilet Toilet Toilet # Voids 2 2 1 - Labs CBC & Chem 7: 09/05/23 09:15 09/06/23 09:50 Labs: Abnormal Lab Results - Last 24 Hours (Table) 09/06/23 09/06/23 09/07/23 Range/Units 16:49 19:55 06:18 POC Glucose (mg/dL) 120 H 164 H 114 H (70-110) mg/dL 09/07/23 Range/Units 11:52 POC Glucose (mg/dL) 146 H (70-110) mg/dL
== END 2023-09-07 15:11 | disposition home or self-care (01) | DRG 315 ==
LOC: EC 08:58 → 6NMEDSUR 10:16 → 3SCARD 15:14 → OBSVTOIN 15:43 → 3SCARD 16:18
PROVIDERS: ADMIT Family Medicine; ATTEND Family Medicine
DX: I95.9 Hypotension, unspecified (principal); N17.9 Acute kidney failure, unspecified; E87.20 Acidosis, unspecified; I42.8 Other cardiomyopathies; I13.0 Hypertensive heart and chronic kidney disease with heart failure and stage 1 through stage 4 chronic kidney disease, or unspecified chronic kidney disease; K51.90 Ulcerative colitis, unspecified, without complications; E11.22 Type 2 diabetes mellitus with diabetic chronic kidney disease; I50.9 Heart failure, unspecified; N18.30 Chronic kidney disease, stage 3 unspecified; E66.01 Morbid (severe) obesity due to excess calories; Z68.31 Body mass index [BMI] 31.0-31.9, adult; Z79.4 Long term (current) use of insulin; E78.5 Hyperlipidemia, unspecified; E86.0 Dehydration; I44.7 Left bundle-branch block, unspecified; I25.10 Atherosclerotic heart disease of native coronary artery without angina pectoris; M19.90 Unspecified osteoarthritis, unspecified site; H91.90 Unspecified hearing loss, unspecified ear; Z79.82 Long term (current) use of aspirin; Z79.84 Long term (current) use of oral hypoglycemic drugs; Z79.899 Other long term (current) drug therapy; Z85.528 Personal history of other malignant neoplasm of kidney; Z87.891 Personal history of nicotine dependence; Z95.5 Presence of coronary angioplasty implant and graft; Z96.651 Presence of right artificial knee joint; Z96.642 Presence of left artificial hip joint; Z92.25 Personal history of immunosuppression therapy; Z88.0 Allergy status to penicillin; Z88.8 Allergy status to other drugs, medicaments and biological substances
CPT/HCPCS: 36415; 71046; 80048; 80053; 84484; 85025; 93005; 96360; 99285

== ENCOUNTER → 2023-10-11 | Outpatient (CLI) | payer MEDICARE ==
--- NOTE | 2023-10-11 16:02 | MR ---
EXAMINATION TYPE: MR kidney wo/w con DATE OF EXAM: 10/11/2023 3:00 PM INDICATION: Patient age:Male; 73 years old; Reason for study: C64.1 MALIGNANT NEOPLASM OF RIGHT KIDNEY, EXCEPT R; PHH. COMPARISON: MR kidney 05/19/2023, CT chest abdomen 12/20/2022, CT abdomen 12/20/2022, CT scan pelvis 11/17 TECHNIQUE: Multiplanar multi-sequence imaging was performed without and with IV contrast. The patien t was given 10 ccs of Gadavist intravenously and dynamic imaging was performed. Post IV contrast subt raction images were also submitted for review. FINDINGS: LOWER CHEST: The heart is mildly enlarged for size. Small bilateral pleural effusions. ABDOMEN Liver: No evidence for hepatic cyst steatosis or cirrhosis. Redemonstration of a high T2/low T1 signa l cyst within the right hepatic lobe. This is minimally complex with thin septations. Measures up to 1.9 cm and is stable. No abnormal postcontrast enhancement. Gallbladder and Bile ducts: Unremarkable. Pancreas: Unremarkable. Spleen: Unremarkable. Adrenal glands: Unremarkable. Kidneys: The right kidney is surgically absent. No suspicious soft tissue within the nephrectomy bed to suggest recurrence. Left kidney demonstrates no hydronephrosis or enhancing mass. Stable left supe rior pole 2.1 cm T2 hyperintense cyst. Stomach and Bowel: Unremarkable as visualized. Peritoneum: No evidence of pneumoperitoneum, free fluid, or adenopathy. Vasculature: Unremarkable. No aortic aneurysm. Abdominal wall: Postsurgical changes of the midline anterior abdominal wall. Musculoskeletal: The osseous structures appear intact. IMPRESSION: 1. Postsurgical changes from right nephrectomy without MR evidence for recurrence. No lymphadenopath y identified within the abdomen. 2. Stable left renal simple cyst. 3. Stable minimally complex right hepatic cyst. 4. Small bilateral pleural effusions.
== END | disposition home or self-care (01) ==
LOC: RADMRIMAIN 13:48
PROVIDERS: ATTEND Urology
DX: C64.1 Malignant neoplasm of right kidney, except renal pelvis
CPT/HCPCS: 74183

== ENCOUNTER → 2024-02-16 | Outpatient (CLI) | payer MEDICARE ==
[2024-02-16 15:58] LABS: HGB 13.7 g/dL (13.0-17.0); MCH 27.1 pg (27.0-32.0); MCHC 29.8 g/dL (32.0-37.0); MCV 91.1 FL (80.0-97.0); Mean Platelet Volume 11.3 FL (9.5-12.2); NRBC Per 100 WBC 0 X 10*3/uL (0.00-0.01); Platelet Count 160 X 10*3/uL (140-440); RBC 5.05 X 10*6/uL (4.40-5.60); RDW 18.1 % (11.5-14.5); WBC 5.29 X 10*3/uL (4.50-10.00)
[2024-02-16 16:01] LABS: Blood Urea Nitrogen 20.2 mg/dL (9.0-27.0); Carbon Dioxide 20.8 mmol/L (21.6-31.8); Chloride 105 mmol/L (96-109); Potassium 4.6 mmol/L (3.5-5.5); Sodium 137 mmol/L (135-145)
== END | disposition home or self-care (01) ==
LOC: LABPAT 12:34
PROVIDERS: ATTEND Internal Medicine Clinical Cardiac Electrophysiology
DX: Z01.812 Encounter for preprocedural laboratory examination (principal); I42.8 Other cardiomyopathies; I44.7 Left bundle-branch block, unspecified; I50.9 Heart failure, unspecified
CPT/HCPCS: 80051; 82565; 84520; 85027

== ENCOUNTER 2024-03-01 12:56 | Day surgery (SDC) | payer MEDICARE ==
[2024-03-01 14:15] LABS: Glucose,Whole Blood 105 mg/dL (70-110)
[2024-03-01 14:57] LABS: ALT 27 U/L (4-49); AST 44 U/L (17-59); African American GFR (CKD) 66 (>60 ml/min/1.73 sqM); Albumin 3.7 g/dL (3.5-5.0); Alkaline Phosphatase 146 U/L (38-126); Anion Gap 11 mmol/L; Blood Urea Nitrogen 13 mg/dL (9-20); Calcium 9.2 mg/dL (8.4-10.2); Carbon Dioxide 20 mmol/L (22-30); Chloride 100 mmol/L (98-107); Glucose 110 mg/dL (74-99); Non-African American GFR(CKD) 57 (>60 ml/min/1.73 sqM); Potassium 4.6 mmol/L (3.5-5.1); Sodium 131 mmol/L (137-145); Total Bilirubin 2.7 mg/dL (0.2-1.3)
[2024-03-01] MEDS: SODIUM CHLORIDE 0.9% 500 ML 500 ML IV ONE (15:00)
[2024-03-01] MEDS ORDERED: fentaNYL (PF) 50 MCG/ML 2 ML AMP ONE (15:00)
[2024-03-01] MEDS ORDERED: PROPOFOL 10 MG/ML 20 ML VIAL IV ONE (15:00)
[2024-03-01] MEDS ORDERED: PHENYLEPHRINE 10 MG/ML VIAL ONE (15:00)
[2024-03-01] MEDS ORDERED: MIDAZOLAM 2 MG/2 ML VIAL ONE (15:00)
[2024-03-01] MEDS: IV FLUID CONTINUATION 1,000 ML IV ONE (15:07)
[2024-03-01] MEDS: IOPAMIDOL-250 100ML BTL IVP ONE (15:33)
[2024-03-01] MEDS: LIDOCAINE 1% INJ 10MG/ML (20 ML MDV) SQ ONE ×2 (16:07)
[2024-03-01] MEDS: ROPIVACAINE 5 MG/ML 30 ML VIAL MISCELLANE ONE (16:08)
[2024-03-01 16:36] LABS: T4, Free (Free Thyroxine) 1.77 ng/dL (0.78-2.19)
[2024-03-01] MEDS ORDERED: VANCOMYCIN IV PER PHARMACY 1 EACH MISC MISCELLANE PRN (17:03)
[2024-03-01] MEDS: VANCOMYCIN 1,500 MG in SODIUM CHLORIDE 0.9% 500 ML 500 ML IVPB ONE (17:22)
[2024-03-01] MEDS: ceFAZolin 1 GM in SODIUM CHLORIDE 0.9% IRRIG BTL 250 ML IRRIGATION PRN (18:27)
[2024-03-01] MEDS ORDERED: ACETAMINOPHEN TAB 325 MG TAB PO PRN ×2 (18:58→19:08)
--- NOTE | 2024-03-01 19:21 | P.EPPROC ---
- EP Procedure Note Electrophysiology Procedure Note: Diagnosis Cardiomyopathy, chronic, nonischemic Congestive heart failure [place] [employer] class, class III Wide QRS 159 ms left bundle branch block, MO interval 286 ms On guide line directed medical treatment for greater than 3 months but intolerant of beta-blockers and LI inhibitors and angiotensin receptor blockers and spironolactone with associated hypotension Procedure: Biventricular ICD implantation for management of risk of sudden cardiac and congestive heart failure Result: Successful biventricular ICD implantation, Atrial lead: 52 cm Medtronic screw-in lead. P waves 1.2 mV, pacing impedance 400 ohms and pacing threshold 0.5 V at 0.4 ms RV ICD lead: 62 cm screw-in Medtronic lead screwed in the RV septum. R waves 7 mV pacing impedance 532 ohms and pacing threshold 0.7 V at 0.4 mL Left ventricular lead: Lateral vein, pacing pins 280 ohms high-voltage impedance 46 ohms pacing threshold 1.7 V at 0.4 ms, P4-RV coil Conduction system pacing lead: Procedure details: Patient was brought to the EP lab in a fasting state. Written informed consent was obtained prior to the procedure. Options, pros and cons, benefits and risks and complications discussed with patient in detail prior to the procedure (shared decision making) previously. Importance of continuing medical treatment emphasized previously. Alternatives discussed previously. Left upper extremity venogram performed. 15 mL IV dye injected in the left arm. Patent axillary/subclavian vein The left pectoral area was prepped and draped as a protocol. IV antibiotics administered 1% lidocaine was used for local anesthesia. A 4 cm incision was made parallel to the deltopectoral groove, about 1.5 cm medial to it. The incision was carried down to the level of the pectoralis muscle and the subfascial pocket was made. Hemostasis was assured. The axillary vein access was obtained. Appropriately sized into to see sheaths were placed. ICD lead implanted in the right ventricle and screwed in. ICD lead tested for threshold, sensing, impedances and tested with high output pacing for diaphragmatic stimulation. Negative diaphragmatic stimulation Placed in RV septum and screwed in using a Mond stylette Atrial lead placed in the right atrial appendage and tested for threshold, sensing, impedance, and tested with high output pacing. Phrenic nerve stimulation negative Very large right atrium. Multiple attempts to position the right atrial lead and finally successful Coronary sinus/left ventricular epicardial lead placement: Very difficult coronary sinus access on account of very large right atrium and unusual anatomy of the coronary sinus. After using multiple different sheaths and multiple attempts, venous access was obtained in the right femoral vein and a coronary sinus catheter was placed from the IVC. The coronary sinus was accessed, it was noted in the coronary sinus was coursing inferiorly for the first 2 to 3 cm and then turning upwards. By placing the coronary sinus catheter from below, the coronary sinus was somewhat straightened. His bundle catheter was used along with regular CS sheath from above and this was placed in the initial part of the coronary sinus and then slid within the coronary sinus body. This part of the procedure took almost 1 hour. This is a very long procedure on account of very difficult coronary sinus axis. As well as on account of a very large right atrium with difficult right atrial positioning Leads secured to the underlying pectoral muscle after removing sheaths . Pocket irrigated with antibiotic solution. Antibiotic pouch placed Leads connected to the biventricular ICD generator. Wound closed in 3 layers and dressed per protocol Biventricular ICD interrogated and programmed. Appropriate pacing parameters, antitachycardia therapies with antitachycardia pacing cardioversion defibrillations programmed. AV delay and biventricular pacing parameters programmed to achieve optimal physiologic pacing Patient tolerated the procedure well without any acute complications. See scanned device report in EMR for lead details
[2024-03-01] MEDS: LACTATED RINGERS 1,000 ML IV SCH (21:16)
[2024-03-01] MEDS: SODIUM CHLORIDE 0.9% 1,000 ML IV SCH ×2 (21:16)
[2024-03-01 21:26] LABS: Glucose,Whole Blood 98 mg/dL (70-110)
[2024-03-01] MEDS: IVABRADINE HCL 5 MG PO SCH (21:44)
[2024-03-01] MEDS: ACETAMINOPHEN IV (For NPO) 1,000 MG in EMPTY BAG 1 BAG IVPB ONE (22:08)
[2024-03-02 05:55] LABS: Glucose,Whole Blood 84 mg/dL (70-110)
--- NOTE | 2024-03-02 07:19 | P.DS ---
Providers Attending physician: Sharad Rogers Primary care physician: [facility] Course: Is doing well. No chest discomfort dizziness lightheadedness The BiV ICD site is healed well. Minimal soakage no hematoma Blood pressure 113/76 mmHg pulse rate in the 70s Impression Nonischemic cardiomyopathy with severe heart failure and intolerance to beta- blockers LI inhibitors angiotensin receptor blockers CHF class III systolic, chronic Status post BiV ICD implantation with LV lead in the lateral vein Very enlarged right atrium, U-shaped coronary sinus entry, long procedure Successful placement of the LV lead in the lateral vein Chest x-ray shows leads in stable position, no pneumothorax Plan discharge home after device interrogation and follow-up in the office with Dr. De Oliveira in 1 week Patient Condition at Discharge: Stable Plan - Discharge Summary Discharge Rx Participant: No New Discharge Prescriptions: Continue RX: Atorvastatin [Lipitor] 10 mg PO DAILY RX: Montelukast Sodium [Singulair] 10 mg PO DAILY RX: Aspirin [Adult Low Dose Aspirin EC] 81 mg PO DAILY RX: Empagliflozin [Jardiance] 10 mg PO DAILY RX: Ivabradine HCl 5 mg PO BID RX: Mesalamine 4.8 gm PO DAILY RX: Midodrine [ProAmatine] 2.5 mg PO BID Discharge Medication List RX: Atorvastatin [Lipitor] 10 mg PO DAILY 12/18/15 [History] RX: Montelukast Sodium [Singulair] 10 mg PO DAILY 08/16/19 [History] RX: Aspirin [Adult Low Dose Aspirin EC] 81 mg PO DAILY 01/05/23 [History] RX: Mesalamine 4.8 gm PO DAILY 08/08/23 [History] RX: Empagliflozin [Jardiance] 10 mg PO DAILY 02/24/24 [History] RX: Ivabradine HCl 5 mg PO BID 02/24/24 [History] RX: Midodrine [ProAmatine] 2.5 mg PO BID 02/24/24 [History] Follow up Appointment(s)/Referral(s): Sharad Rogers MD [STAFF PHYSICIAN] - 03/08/24 4:00 pm (FOLLOW UP APPOINMENT MADE AT DEVICE CLINIC ) Activity/Diet/Wound Care/Special Instructions: PATIENT EDUCATION MATERIAL Instructions following a heart rhythm device implant. 1. Keep dressing DRY for 5 DAYS. You may cover the area with Saran or Cling Wrap, prior to a shower. 2. The dressing will be removed in the Device Clinic at [facility]. Absorbable sutures were used to close the wound. 3. Avoid raising the left arm above the shoulder level. 4 week restriction 4. Avoid arm movements, like backscratching, rubbing the head, or pulling on a cord. 4 weeks restriction 5. Gentle range of motion movements of the shoulder, closest to the incision should be performed to avoid a frozen shoulder. (Pendulum exercises of the shoulder) 6. The opposite arm may be used freely. 7. Avoid driving for 7 days. 8. Avoid activities such as golfing, swimming, weed whacking, lifting more than 10 pounds weight, bowling, gymnastics and weight training/lifting. (6 weeks restriction) 9. Activities such as wood chopping with an axe, pull-ups in the gymnasium, power lifting, arc-welding, being close to home induction cooktops will always be a problem. 10. Arm sling is only a reminder not to raise the arm above the head. You do not need to keep the arm completely immobilized. Your free to move the arm and use it and for normal activities. In case of any problems, please call [facility], @ [phone], Attention: Device Clinic Device clinic follow-up in 5 days Follow-up with primary document preparer microfilming in 2-3 months
--- NOTE | 2024-03-02 07:33 | XR ---
EXAMINATION TYPE: XR chest 2V DATE OF EXAM: 03/02/2024 6:22 AM COMPARISON: Chest radiographs from 09/05/2023 CLINICAL INDICATION: Male, 73 years old with history of Lead placement check; [facility] TECHNIQUE: XR chest 2V Frontal and lateral views of the chest. FINDINGS: Lungs/Pleura: There is no evidence of pleural effusion, focal consolidation, or pneumothorax. Pulmonary vascularity: Unremarkable. Heart/mediastinum: Cardiomediastinal silhouette is enlarged and stable. Three lead cardiac conduction device overlying the left hemithorax with lead tips projecting over the right ventricle, right atriu m and coronary sinus. Musculoskeletal: No acute osseous pathology. IMPRESSION: No acute cardiopulmonary disease/process. [facility], , 03/02/2024 7:31 AM
[2024-03-02 08:20] VITALS: BP 115/71; PULSE 74; RESP 16; TEMP 97.4
[2024-03-02] MEDS: BALSALAZIDE DISODIUM 750 MG CAPSULE PO SCH (08:28)
[2024-03-02] MEDS: ASPIRIN 81 MG PO SCH (08:28)
[2024-03-02] MEDS: MONTELUKAST 10 MG TAB PO SCH (08:28)
[2024-03-02] MEDS: DAPAGLIFLOZIN PROPANEDIOL 5 MG TABLET PO SCH (08:28)
[2024-03-02] MEDS: ATORVASTATIN 10 MG TAB PO SCH (08:28)
== END 2024-03-02 12:14 | disposition home or self-care (01) ==
LOC: CATHEP 12:56 → 6NMEDSUR 17:58 → CATHEP 03-02 12:14
PROVIDERS: ATTEND Internal Medicine Clinical Cardiac Electrophysiology
DX: I42.8 Other cardiomyopathies (principal); I44.7 Left bundle-branch block, unspecified; I50.22 Chronic systolic (congestive) heart failure; I25.10 Atherosclerotic heart disease of native coronary artery without angina pectoris; Z79.82 Long term (current) use of aspirin; Z79.899 Other long term (current) drug therapy; Z88.0 Allergy status to penicillin
CPT/HCPCS: 33225; 33249; 84439; 80053; 84443; 71046; C1769 ×5; C1894; C1882; C1892 ×2; C1730 ×3; C1887; C1898; C1900; C1895; J3370; J0690; J2003; J2795; Q9966

== ENCOUNTER → 2024-03-19 | Outpatient (CLI) | payer MEDICARE ==
--- NOTE | 2024-03-19 14:56 | CT ---
EXAMINATION TYPE: CT abdomen wo con CT DLP: 903.3 mGycm, Automated exposure control for dose reduction was used. DATE OF EXAM: 03/19/2024 2:45 PM COMPARISON: MR kidney 10/11/2023, 05/19/2023, CT chest abdomen 12/20/2022, CT abdomen 12/20/2022, CT abdom en and pelvis 11/17/2022 CLINICAL INDICATION:Male, 73 years old with history of R10.84 ABD PAIN R14.0 ABD DISTENSION; abdomina l pain and bloating TECHNIQUE: Standard CT of the abdomen without IV or oral contrast. Lack of IV or oral contrast limi ts evaluation of solid and hollow organ viscera. Coronal and sagittal reformats were performed. FINDINGS: LOWER CHEST: Partial visualization of at least moderate-sized bilateral pleural effusions with associ ated atelectasis. Cardiomegaly. Partial visualization of cardiac pacemaking leads. Determining in the right ventricle and coronary sinus. ABDOMEN LIVER: Stable post right hepatic lobe cyst measuring up to 1.5 cm. GALLBLADDER AND BILE DUCTS: Mildly distended measuring up to 5.2 cm in transverse dimension. No bilia ry ductal dilatation identified. PANCREAS: Grossly unremarkable noncontrast appearance. SPLEEN: Grossly unremarkable noncontrast appearance. Surrounding ascites demonstrated. ADRENAL GLANDS: Grossly unremarkable noncontrast appearance. KIDNEYS AND URETERS: No evidence of hydronephrosis. Nonobstructive left renal 5 mm calculus. The righ t kidney surgically absent. Stable left renal cyst within the upper pole measuring up to 2.2 cm. STOMACH AND BOWEL: Stomach and duodenum are unremarkable. No gross evidence for focal bowel wall thic kening or surrounding inflammatory changes. No evidence of bowel obstruction. PERITONEUM: No evidence of pneumoperitoneum. Small to moderate sized ascites which is primarily seen within the perisplenic and perihepatic abdomen. Diffuse mesenteric edema identified. VASCULATURE: No evidence of aortic aneurysm. MUSCULOSKELETAL: No acute osseous abnormalities. Degenerative changes of the SI joints with left ante rior bridging. Multilevel degenerative disc disease with prominent Schmorl's node involving the super ior endplate of the L3 vertebral body. LYMPH NODES: No gross evidence for lymphadenopathy. SOFT TISSUE/ABDOMINAL WALL: Significant diffuse anasarca. Post surgical changes in the midline anteri or abdominal wall. IMPRESSION: 1. Increased moderate size bilateral pleural effusions with significant diffuse anasarca and small t o moderate size ascites. Correlate clinically for volume overload/CHF exacerbation. 2. Postsurgical changes from right nephrectomy without gross evidence for recurrence. Evaluation is l imited due to ascites/mesenteric edema and lack of intravenous contrast. 3. Nonobstructive left renal calculus. [facility], , 03/19/2024 2:53 PM
== END | disposition home or self-care (01) ==
LOC: RADCTMAIN 14:23
PROVIDERS: ATTEND Family Medicine
DX: R10.84 Generalized abdominal pain (principal); R14.0 Abdominal distension (gaseous); R18.8 Other ascites; J90 Pleural effusion, not elsewhere classified; N20.0 Calculus of kidney; Z90.5 Acquired absence of kidney
CPT/HCPCS: 74150

== ENCOUNTER 2024-03-20 09:54 | Observation (INO) | payer MEDICARE ==
--- NOTE | 2024-03-20 10:56 | ED ---
General Adult HPI - General Chief complaint: Recheck/Abnormal Lab/Rx Stated complaint: Fluid in abd Time Seen by Provider: 03/20/24 10:28 Source: patient, RN notes reviewed Mode of arrival: ambulatory Limitations: no limitations - History of Present Illness Initial comments: 73-year-old male presents emergency department from PCPs office with chief compl aint of abdominal pain, shortness of breath. Patient's been having creasing abdominal discomfort, swelling. Patient did have CT yesterday showing large amount of ascites. Patient states he has never had a paracentesis in the past. He states he is unsure why this develops. He does note that he had increasing shortness of breath and some fluid on his lungs in which he states that he had recent pacemaker fibrillator placed by Dr. Rogers. He states that they were hoping this would help with some of his symptoms. Patient denies any prior liver disease P states that he had a prior nephrectomy recently for cancer. Patient denies fevers or chills no chest pain. - Related Data Home Medications Medication Instructions Recorded Confirmed Atorvastatin [Lipitor] 10 mg PO DAILY 12/18/15 03/20/24 Montelukast Sodium [Singulair] 10 mg PO DAILY 08/16/19 03/20/24 Aspirin [Adult Low Dose Aspirin EC] 81 mg PO DAILY 01/05/23 03/20/24 Empagliflozin [Jardiance] 10 mg PO DAILY 02/24/24 03/20/24 Ivabradine HCl 5 mg PO BID-W/MEALS 02/24/24 03/20/24 Midodrine [ProAmatine] 2.5 mg PO BID-W/MEALS 02/24/24 03/20/24 Mesalamine [Lialda] 4.8 gm PO DAILY 03/20/24 03/20/24 Allergies Allergy/AdvReac Type Severity Reaction Status Date / Time budesonide Allergy "I Verified 03/20/24 11:05 couldn't breathe." Penicillins Allergy "passed Verified 03/20/24 11:05 out" Review of Systems ROS Statement: Those systems with pertinent positive or pertinent negative responses have been documented in the HPI. ROS Other: All systems not noted in ROS Statement are negative. 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 had Immunotherapy keytruda, had 6 doses, february 2023,hx colitis. Type II diabetic IDDM. See DR Rogers's H&P. History of Any Multi-Drug Resistant Organisms: None Reported Past Surgical History: Hernia Repair, Joint Replacement, Orthopedic Surgery Additional Past Surgical History / Comment(s): rt knee meniscus repair, left leg orif with screws, 12-22-15 total rt knee, lft hip replacement, rt and lt carpal tunnel, right nephrectomy Jan 2023. Past Anesthesia/Blood Transfusion Reactions: No Reported Reaction Additional Past Anesthesia/Blood Transfusion Reaction / Comment(s): no blood transfusion hx Past Psychological History: No Psychological Hx Reported Smoking Status: Former smoker Past Alcohol Use History: None Reported Past Drug Use History: None Reported - Past Family History Father Family Medical History: Cancer Additional Family Medical History / Comment(s): lung Mother Family Medical History: Asthma, Diabetes Mellitus Brother(s) Family Medical History: Cancer Additional Family Medical History / Comment(s): Pancreatic cancer General Exam Limitations: no limitations General appearance: alert, in no apparent distress Head exam: Present: atraumatic, normocephalic, normal inspection Eye exam: Present: normal appearance, PERRL, EOMI. Absent: scleral icterus, conjunctival injection, periorbital swelling ENT exam: Present: normal exam, mucous membranes moist Neck exam: Present: normal inspection, full ROM. Absent: tenderness, meningismus, lymphadenopathy Respiratory exam: Present: rales. Absent: normal lung sounds bilaterally, respiratory distress, wheezes, rhonchi, stridor Cardiovascular Exam: Present: regular rate, normal rhythm, normal heart sounds. Absent: systolic murmur, diastolic murmur, rubs, gallop, clicks GI/Abdominal exam: Present: soft, distended, tenderness, normal bowel sounds. Absent: guarding, rebound, rigid Course Vital Signs 03/20/24 03/20/24 03/20/24 10:21 10:46 13:05 Temperature 97.6 F 96.9 F L Pulse Rate 78 75 71 Respiratory 20 18 18 Rate Blood Pressure 104/67 106/72 112/73 O2 Sat by Pulse 98 97 98 Oximetry Medical Decision Making - Medical Decision Making Was pt. sent in by a medical professional or institution ([facility], [employer], urgent care, hospital, or fdc...) When possible be specific @ -PCP Did you speak to anyone other than the patient for history (EMS, parent, family, police, friend...)? What history was obtained from this source @ -No Did you review nursing and triage notes (agree or disagree)? Why? @ -I reviewed and agree with nursing and triage notes Were old charts reviewed (outside hosp., previous admission, EMS record, old EKG, old radiological studies, urgent care reports/EKG's, fdc records)? Report findings @ -No old charts were reviewed Differential Diagnosis (chest pain, altered mental status, abdominal pain women, abdominal pain men, vaginal bleeding, weakness, fever, dyspnea, syncope, headache, dizziness, GI bleed, back pain, seizure, CVA, palpatations, mental health, musculoskeletal)? @ -Differential Dyspnea: Coronary syndrome, arrhythmia, tamponade, asthma, COPD, pulmonary embolism, pneumonia, pneumothorax, pulmonary effusion, anaphylaxis, diabetic ketoacidosis, flailed chest, pulmonary contusion, diaphragmatic rupture, anemia, neuromuscular, this is not meant to be an all-inclusive list. EKG interpreted by me (3pts min.). @ -As above X-rays interpreted by me (1pt min.). @ -Chest pressure and pleural effusion, pulmonary edema CT interpreted by me (1pt min.). @ -Ultrasound abdomen showing no large fluid collection able to drain. Soft ti ssue swelling U/S interpreted by me (1pt. min.). @ -None done What testing was considered but not performed or refused? (CT, X-rays, U/S, labs)? Why? @ -None What meds were considered but not given or refused? Why? @ -None Did you discuss the management of the patient with other professionals (cyndy osorio i.e. [facility] Cast[facility]na, [employer], lab, RT, psych nurse, social service agency director, powder line repairer, teacher, accounts officer, case making machine operator)? Give summary @ -Dr. Flowers updated on results and for admission Was smoking cessation discussed for >3mins.? @ -No Was critical care preformed (if so, how long)? @ -No Were there social determinants of health that impacted care today? How? (Homelessness, low income, unemployed, alcoholism, drug addiction, transportation, low edu. Level, literacy, decrease access to med. care, [facility], rehab)? @ -No Was there de-escalation of care discussed even if they declined (Discuss DNR or withdrawal of care, Hospice)? DNR status @ -No What co-morbidities impacted this encounter? (DM, HTN, Smoking, COPD, CAD, Cancer, CVA, ARF, Chemo, Hep., AIDS, mental health diagnosis, sleep apnea, morbid obesity)? @ -None Was patient admitted / discharged? Hospital course, mention meds given and route, prescriptions, significant lab abnormalities, going to OR and other pertinent info. @ -Admitted patient's found to have acute CHF exacerbation, pulmonary edema, patient started on Lasix, consulted cardiology, pulmonary. Patient did have ultrasound concerning for ascites without acute findings. Patient will Diuresis and Further Management Treatment. Undiagnosed new problem with uncertain prognosis? @ -No Drug Therapy requiring intensive monitoring for toxicity (Heparin, Nitro, Insulin, Cardizem)? @ -No Were any procedures done? @ -No Diagnosis/symptom? @ -Acute CHF Acute, or Chronic, or Acute on Chronic? @ -Acute Uncomplicated (without systemic symptoms) or Complicated (systemic symptoms)? @ -Complicated Side effects of treatment? @ -No Exacerbation, Progression, or Severe Exacerbation? @ -No Poses a threat to life or bodily function? How? (Chest pain, USA, NC, pneumonia, PE, COPD, DKA, ARF, appy, cholecystitis, CVA, Diverticulitis, Homicidal, Suicidal, threat to staff... and all critical care pts) @ -Yes CHF exacerbation causing cardiac respiratory failure - Lab Data Result diagrams: 03/20/24 10:48 03/20/24 10:48 Lab Results 03/20/24 03/20/24 03/20/24 Range/Units 10:48 10:48 10:48 WBC 4.5 (3.8-10.6) k/uL RBC 4.88 (4.30-5.90) m/uL Hgb 13.6 (13.0-17.5) gm/dL Hct 45.6 (39.0-53.0) % MCV 93.3 (80.0-100.0) fL MCH 27.8 (25.0-35.0) pg MCHC 29.7 L (31.0-37.0) g/dL RDW 17.7 H (11.5-15.5) % Plt Count 172 (150-450) k/uL MPV 7.9 Neutrophils % 75 % Lymphocytes % 10 % Monocytes % 7 % Eosinophils % 6 % Basophils % 0 % Neutrophils # 3.4 (1.3-7.7) k/uL Lymphocytes # 0.4 L (1.0-4.8) k/uL Monocytes # 0.3 (0-1.0) k/uL Eosinophils # 0.3 (0-0.7) k/uL Basophils # 0.0 (0-0.2) k/uL Hypochromasia Marked Anisocytosis Slight PT 14.8 H (10.0-12.5) sec INR 1.4 H (<1.2) APTT 27.1 (22.0-30.0) sec Sodium 133 L (137-145) mmol/L Potassium 4.8 (3.5-5.1) mmol/L Chloride 105 (98-107) mmol/L Carbon Dioxide 20 L (22-30) mmol/L Anion Gap 8 mmol/L BUN 14 (9-20) mg/dL Creatinine 0.97 (0.66-1.25) mg/dL Est GFR (CKD-EPI)AfAm 89 (>60 ml/min/1.73 sqM) Est GFR (CKD-EPI)NonAf 77 (>60 ml/min/1.73 sqM) Glucose 111 H (74-99) mg/dL Calcium 8.9 (8.4-10.2) mg/dL Total Bilirubin 2.4 H (0.2-1.3) mg/dL AST 51 (17-59) U/L ALT 29 (4-49) U/L Alkaline Phosphatase 112 (38-126) U/L NT-Pro-B Natriuret Pep 75978 pg/mL Total Protein 6.4 (6.3-8.2) g/dL Albumin 3.3 L (3.5-5.0) g/dL Critical Care Time Critical Care Time: Yes Total Critical Care Time: 35 Disposition Clinical Impression: CHF exacerbation Disposition: ADMITTED IP TO THIS [facility] Condition: Fair Referrals: Natanael Rivera Jr, DO [Primary Care Provider] - 1-2 days Time of Disposition: 13:32
[2024-03-20 11:16] LABS: Anisocytosis Slight; Basophils % (A) 0 %; Eosinophils # (A) 0.3 k/uL (0-0.7); Eosinophils % (A) 6 %; HCT 45.6 % (39.0-53.0); HGB 13.6 gm/dL (13.0-17.5); Hypochromasia Marked; Lymphocytes # (A) 0.4 k/uL (1.0-4.8); Lymphocytes % (A) 10 %; MCH 27.8 pg (25.0-35.0); MCHC 29.7 g/dL (31.0-37.0); MCV 93.3 fL (80.0-100.0); Mean Platelet Volume 7.9; Monocytes # (A) 0.3 k/uL (0-1.0); Monocytes % (A) 7 %; Neutrophils # (A) 3.4 k/uL (1.3-7.7); Neutrophils % (A) 75 %; Platelet Count 172 k/uL (150-450); RBC 4.88 m/uL (4.30-5.90); RDW 17.7 % (11.5-15.5); WBC 4.5 k/uL (3.8-10.6)
[2024-03-20 11:31] LABS: ALT 29 U/L (4-49); African American GFR (CKD) 89 (>60 ml/min/1.73 sqM); Albumin 3.3 g/dL (3.5-5.0); Anion Gap 8 mmol/L; Blood Urea Nitrogen 14 mg/dL (9-20); Calcium 8.9 mg/dL (8.4-10.2); Carbon Dioxide 20 mmol/L (22-30); Chloride 105 mmol/L (98-107); Glucose 111 mg/dL (74-99); Non-African American GFR(CKD) 77 (>60 ml/min/1.73 sqM); Sodium 133 mmol/L (137-145); Total Bilirubin 2.4 mg/dL (0.2-1.3); Total Protein 6.4 g/dL (6.3-8.2)
[2024-03-20 11:32] LABS: Potassium 4.8 mmol/L (3.5-5.1)
[2024-03-20 11:33] LABS: AST 51 U/L (17-59); Alkaline Phosphatase 112 U/L (38-126)
[2024-03-20 11:36] LABS: INR 1.4 (<1.2)
[2024-03-20 11:37] LABS: Partial Thromboplastin Time 27.1 sec (22.0-30.0); Prothrombin Time 14.8 sec (10.0-12.5)
[2024-03-20 11:39] LABS: NT-Pro-B-Type Natriuretic Pept 14600 pg/mL
--- NOTE | 2024-03-20 12:23 | US ---
EXAMINATION TYPE: US abdomen limited DATE OF EXAM: 03/20/2024 COMPARISON: CT one day earlier. CLINICAL INDICATION: Male, 73 years old with history of Abdominal pain, assess for abdominal ascites; Assess ascites TECHNIQUE: Grayscale imaging of the abdomen for ascites. FINDINGS: Small amount of ascites adjacent to liver. IMPRESSION: As above. Findings correlate with recent CT. No significant amount of ascites to warrant safe ultrasound-guided paracentesis currently. [facility], , 03/20/2024 12:21 PM
--- NOTE | 2024-03-20 12:43 | XR ---
EXAMINATION TYPE: XR chest 2V DATE OF EXAM: 03/20/2024 12:29 PM COMPARISON: None. CLINICAL INDICATION: Male, 73 years old with history of sob, TECHNIQUE: XR chest 2V view(s) obtained. FINDINGS: The heart size is mildly prominent. The pulmonary vasculature is prominent. Scattered mild increased lung markings are present. There is some silhouetting of the left diaphragm. Minimal left pleural effusion may be present. Pacemaker overlies left chest. IMPRESSION: 1. Clinical consideration for volume overload or congestive heart failure is recommended [facility], , 03/20/2024 12:40 PM
[2024-03-20] MEDS: FUROSEMIDE 10 MG/ML 4 ML VIAL IV STA (13:25)
[2024-03-20] MEDS ORDERED: DEXTROSE 50% SYRINGE 50 ML IVP PRN ×2 (13:30)
[2024-03-20] MEDS: PANTOPRAZOLE 40 MG/10 ML VIAL IVP SCH (13:42)
--- NOTE | 2024-03-20 14:08 | P.HPIM ---
History of Present Illness H&P Date: 03/20/24 This is a 73-year-old gentleman with past medical history significant for renal cell carcinoma status post nephrectomy 02/05 status post immunotherapy, diabetes mellitus II, hearing disorder, CAD, nonischemic cardiomyopathy,recent biventricular ICD implantation 03/01/2024, hypertension, hyperlipidemia, prior nicotine dependence, ulcerative colitis and multiple other medical issues presented to the ER with complaints of shortness of breath, nonproductive cough, increasing painless abdominal swelling over the last month-first occurrence. Reports ambulating up and down his stairs at home has been increasingly difficult requiring him to rest in between his sets of stairs.denies chest pain, palpitations. Yesterday patient underwent a CT reporting increased moderate size bilateral pleural effusions with significant diffuse anasarca and small to moderate size ascites, correlate for volume overload/CHF exacerbation or. Postsurgical changes from right nephrectomy without gross evidence for rec urrencelimited evaluation secondary to ascites/mesenteric edema and lack of IV contrast. Nonobstructive renal calculus. PCP attempted to schedule him for paracentesis but there is no opening until mid March so patient was instructed to proceed to the ER. Afebrile, normal WBC, 13.6, platelets 172, INR 1.4, sodium 133, potassium 4.8, bicarb 20, BUN 14 creatinine 0.97 glucose 111,,, T. bili 2.4, proBNP 14,600, albumin 3.3. Reports no urine output yet today, normal soft bowel movement this morningno diarrhea. Abdominal ultrasound reported small amount of ascites adjacent to liver, no si gnificant amount of ascites to warrant safe ultrasound-guided paracentesis currently. Chest x-ray reports clinical consideration for volume overload or CHF. Review of Systems ROS Statement: Those systems with pertinent positive or pertinent negative responses have been documented in the HPI. ROS Other: All systems not noted in ROS Statement are negative. 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 had Immunotherapy keytruda, had 6 doses, february 2023,hx colitis. Type II diabetic IDDM. See DR Rogers's H&P. History of Any Multi-Drug Resistant Organisms: None Reported Past Surgical History: Hernia Repair, Joint Replacement, Orthopedic Surgery Additional Past Surgical History / Comment(s): rt knee meniscus repair, left leg orif with screws, 12-22-15 total rt knee, lft hip replacement, rt and lt carpal tunnel, right nephrectomy Jan 2023. Past Anesthesia/Blood Transfusion Reactions: No Reported Reaction Additional Past Anesthesia/Blood Transfusion Reaction / Comment(s): no blood transfusion hx Past Psychological History: No Psychological Hx Reported Smoking Status: Former smoker Past Alcohol Use History: None Reported Past Drug Use History: None Reported - Past Family History Father Family Medical History: Cancer Additional Family Medical History / Comment(s): lung Mother Family Medical History: Asthma, Diabetes Mellitus Brother(s) Family Medical History: Cancer Additional Family Medical History / Comment(s): Pancreatic cancer Medications and Allergies Home Medications Medication Instructions Recorded Confirmed Type Atorvastatin [Lipitor] 10 mg PO DAILY 12/18/15 03/20/24 History Montelukast Sodium [Singulair] 10 mg PO DAILY 08/16/19 03/20/24 History Aspirin [Adult Low Dose Aspirin EC] 81 mg PO DAILY 01/05/23 03/20/24 History Empagliflozin [Jardiance] 10 mg PO DAILY 02/24/24 03/20/24 History Ivabradine HCl 5 mg PO BID-W/MEALS 02/24/24 03/20/24 History Midodrine [ProAmatine] 2.5 mg PO BID-W/MEALS 02/24/24 03/20/24 History Mesalamine [Lialda] 4.8 gm PO DAILY 03/20/24 03/20/24 History Allergies Allergy/AdvReac Type Severity Reaction Status Date / Time budesonide Allergy "I Verified 03/20/24 11:05 couldn't breathe." Penicillins Allergy "passed Verified 03/20/24 11:05 out" Physical Exam Vitals: Vital Signs Temp Pulse Resp BP Pulse Ox 03/20/24 10:46 96.9 F L 75 18 106/72 97 03/20/24 10:21 97.6 F 78 20 104/67 98 Intake and Output 03/19/24 03/20/24 03/20/24 22:59 06:59 14:59 Other: Weight 113.398 kg VITAL SIGNS: Reviewed. GENERAL: Atraumatic, normal cephalic, pupils equal, round, sclera anicteric ,alert and oriented x 3, sitting up on stretcher, in no acute distress. NECK: Supple. No JVD. No lymphadenopathy HEART: Regular S1-S2, no murmur. LUNGS: Unlabored, equal air entry, scattered crackles ABDOMEN: Soft, distended,nontender, no rigidity, no guarding, positive bowel sounds,ansarca. EXTREMITIES: positive lower extremity edema, extending from abdomen.right lateral thigh tenderness NEURO: Cranial nerves II through XII grossly intact. SKIN: Warm and dry, no rashes noted. Results CBC & Chem 7: 03/20/24 10:48 03/20/24 10:48 Labs: Abnormal Lab Results - Last 24 Hours (Table) 03/20/24 03/20/24 03/20/24 Range/Units 10:48 10:48 10:48 MCHC 29.7 L (31.0-37.0) g/dL RDW 17.7 H (11.5-15.5) % Lymphocytes # 0.4 L (1.0-4.8) k/uL PT 14.8 H (10.0-12.5) sec INR 1.4 H (<1.2) Sodium 133 L (137-145) mmol/L Carbon Dioxide 20 L (22-30) mmol/L Glucose 111 H (74-99) mg/dL Total Bilirubin 2.4 H (0.2-1.3) mg/dL Albumin 3.3 L (3.5-5.0) g/dL Assessment and Plan Assessment: Bilateral pleural effusions, ascites, anasarca, reports worsening over the last month Acute on Chronic systolic CHF Recent biventricular ICD implantation 03/01/2024 Nonischemic cardiomyopathy Urinary retention, requiring Geronimo catheter Chronic kidney disease, GFR 77, stage II, possible cardiorenal syndrome Renal cell cancer status post nephrectomy in January 2023, status post immunotherapy with Keytruda Valvular heart disease with severe mitral regurgitation and moderate tricuspid regurgitation Hypertension, history of Hyperlipidemia Diabetes mellitus type 2 Ulcerative colitis Morbid obesity, BMI 33, reports 100 pound weight loss with Ozempic prior to his onset of renal CA Osteoarthritis Former nicotine Plan: Continue on current medication regimen ,monitoring and symptomatic treat ment. IV push diuretics .Geronimo catheter to be inserted as patient reports he has not voided today. 2D echo ordered. CHF protocol, strict I&O's, daily weights. cardiology, pulmonary consulted. Patient is status post immunotherapy with Keytruda with cardiomyopathy, oncology consulted. PT/OT. The impression and plan of care has been dictated as directed. : I performed a history and examination of this patient, discussed the same with the dictator. I agree with the dictator's note ,documented as a scribe. Any additional findings or plans will be noted.
--- NOTE | 2024-03-20 15:08 | P.CRDCN ---
History of Present Illness Consult date: 03/20/24 Reason for Consult (text): Recent biventricular ICD implantation History of present illness: This is a 73-year-old male patient of Dr. De Oliveira with past medical history of hypertension, hyperlipidemia, diabetes mellitus type 2, ulcerative colitis, renal cell cancer status post nephrectomy in January 2023, nonischemic cardiomyopathy status post ICD implantation on 03/01/[address] Rogers. We have been asked to evaluate the patient for recent BiV ICD implantation. Patient states that he has developed abdominal fluid and bloating and due to this requested that a CAT scan be done. This was done yesterday as an outpatient and found moderate bilateral pleural effusion with significant anasarca and small to moderate ascites. Patient's PCP then contacted him to come into the hospital for further evaluation. He has subsequently had ultrasound of the abdomen that showed no significant ascites to warrant safe paracentesis. Patient has been started on IV Lasix 40 mg every 12 hours. Patient denies having chest pain, lightheadedness or dizziness, no nausea or vomiting. Blood pressure 112/73, heart rate 71, pulse ox 98% on room air. -EKG: Paced rhythm -Chest x-ray: Consider volume overload or CHF. -Laboratory studies: WBC 4.5, hemoglobin 13.6. INR 1.4. Sodium 133, potassium 4.8, BUN 14 creatinine 0.97. proBNP 14,600. -Home cardiac medications: Aspirin 81 mg daily, atorvastatin 10 mg daily, Jardiance 10 mg daily, midodrine 2.5 mg twice daily. -Biventricular Medtronic ICD implantation on 03/01/[address] Rogers for non ischemic cardiomyopathy with severe heart failure and intolerance to beta- blockers, LI inhibitors and ARB's. -Echocardiogram performed in the office on 12/01/2023 revealed EF less than 20% with global LV hypokinesis. Mild left ventricular hypertrophy. Severe mitral regurgitation, moderate tricuspid regurgitation, PASP 54 mmHg. Review Of Systems: At the time of my exam: CONSTITUTIONAL: Denies fever or chills. HEENT: Denies blurred vision, vision changes, or eye pain. Denies hemoptysis CARDIOVASCULAR: Denies chest pain. Denies orthopnea. Denies PND. Denies palpitations RESPIRATORY: Reports shortness of breath. GASTROINTESTINAL: Denies abdominal pain. Denies nausea or vomiting. HEMATOLOGIC: Denies bleeding disorders. GENITOURINARY: Denies any blood in urine. SKIN: Denies puritis. Denies rash. Physical examination: Gen: This is a 73-year-old male in no acute distress VS: reviewed HEENT: Head is atraumatic, normocephalic. Pupils equal, round. Sclerae is anicteric. NECK: Supple. No JVD. LUNGS: Mild crackles to the bases. No intercostal retractions. HEART: Regular rate and rhythm. No murmur. ABDOMEN: Soft abdominal bloating/fluid. No tenderness. EXTREMITIES: No pedal edema. No calf tenderness. NEUROLOGICAL: Patient is awake, alert and oriented x3. Assessment: Bilateral pleural effusions, ascites, anasarca Recent BiV ICD implantation on 03/01/2024 Acute on chronic systolic heart failure Nonischemic cardiomyopathy with EF less than 20% Valvular heart disease with severe mitral regurgitation, moderate tricuspid regurgitation hypertension Hyperlipidemia Diabetes mellitus type 2 Ulcerative colitis History of renal cell cancer status post nephrectomy Plan: Resume patient's home cardiac medications Continue IV Lasix 40 mg every 12 hours Monitor LOUISA, daily weight, electrolytes and renal function Obtain 2-D echocardiogram and Doppler study to assess cardiac structure and function Further recommendations to follow based upon clinical course Thank you kindly for this consultation. Nurse practitioner note has been reviewed, I agree with documented findings and plan of care. Patient was seen and examined. 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 had Immunotherapy keytruda, had 6 doses, february 2023,hx colitis. Type II diabetic IDDM. See DR Rogers's H&P. History of Any Multi-Drug Resistant Organisms: None Reported Past Surgical History: Hernia Repair, Joint Replacement, Orthopedic Surgery Additional Past Surgical History / Comment(s): rt knee meniscus repair, left leg orif with screws, 12-22-15 total rt knee, lft hip replacement, rt and lt carpal tunnel, right nephrectomy Jan 2023. Past Anesthesia/Blood Transfusion Reactions: No Reported Reaction Additional Past Anesthesia/Blood Transfusion Reaction / Comment(s): no blood transfusion hx Past Psychological History: No Psychological Hx Reported Smoking Status: Former smoker Past Alcohol Use History: None Reported Past Drug Use History: None Reported - Past Family History Father Family Medical History: Cancer Additional Family Medical History / Comment(s): lung Mother Family Medical History: Asthma, Diabetes Mellitus Brother(s) Family Medical History: Cancer Additional Family Medical History / Comment(s): Pancreatic cancer Medications and Allergies Home Medications Medication Instructions Recorded Confirmed Type Atorvastatin [Lipitor] 10 mg PO DAILY 12/18/15 03/20/24 History Montelukast Sodium [Singulair] 10 mg PO DAILY 08/16/19 03/20/24 History Aspirin [Adult Low Dose Aspirin EC] 81 mg PO DAILY 01/05/23 03/20/24 History Empagliflozin [Jardiance] 10 mg PO DAILY 02/24/24 03/20/24 History Ivabradine HCl 5 mg PO BID-W/MEALS 02/24/24 03/20/24 History Midodrine [ProAmatine] 2.5 mg PO BID-W/MEALS 02/24/24 03/20/24 History Mesalamine [Lialda] 4.8 gm PO DAILY 03/20/24 03/20/24 History Allergies Allergy/AdvReac Type Severity Reaction Status Date / Time budesonide Allergy "I Verified 03/20/24 11:05 couldn't breathe." Penicillins Allergy "passed Verified 03/20/24 11:05 out" Physical Exam Vitals: Vital Signs Temp Pulse Resp BP Pulse Ox 03/20/24 13:05 71 18 112/73 98 03/20/24 10:46 96.9 F L 75 18 106/72 97 03/20/24 10:21 97.6 F 78 20 104/67 98 Intake and Output 03/19/24 03/20/24 03/20/24 22:59 06:59 14:59 Other: Weight 113.398 kg Results 03/20/24 10:48 03/20/24 10:48 Cardiac Enzymes 03/20/24 Range/Units 10:48 AST 51 (17-59) U/L Coagulation 03/20/24 Range/Units 10:48 PT 14.8 H (10.0-12.5) sec APTT 27.1 (22.0-30.0) sec CBC 03/20/24 Range/Units 10:48 WBC 4.5 (3.8-10.6) k/uL RBC 4.88 (4.30-5.90) m/uL Hgb 13.6 (13.0-17.5) gm/dL Hct 45.6 (39.0-53.0) % Plt Count 172 (150-450) k/uL Comprehensive Metabolic Panel 03/20/24 Range/Units 10:48 Sodium 133 L (137-145) mmol/L Potassium 4.8 (3.5-5.1) mmol/L Chloride 105 (98-107) mmol/L Carbon Dioxide 20 L (22-30) mmol/L BUN 14 (9-20) mg/dL Creatinine 0.97 (0.66-1.25) mg/dL Glucose 111 H (74-99) mg/dL Calcium 8.9 (8.4-10.2) mg/dL AST 51 (17-59) U/L ALT 29 (4-49) U/L Alkaline Phosphatase 112 (38-126) U/L Total Protein 6.4 (6.3-8.2) g/dL Albumin 3.3 L (3.5-5.0) g/dL Current Medications Generic Name Dose Route Start Last Admin Trade Name Freq PRN Reason Stop Dose Admin Balsalazide 2,250 mg 03/20/24 16:00 Balsalazide Disodium 750 Mg Capsule PO TID KYLAH Dextrose/Water 25 ml 03/20/24 13:30 Dextrose 50% Syringe 50 Ml IVP PER PROTOCOL PRN Hypoglycemia Protocol Dextrose/Water 50 ml 03/20/24 13:30 Dextrose 50% Syringe 50 Ml IVP PER PROTOCOL PRN Hypoglycemia Protocol Furosemide 40 mg 03/21/24 01:00 Furosemide 10 Mg/Ml 4 Ml Vial IV Q12H KYLAH Insulin Aspart 0 unit 03/20/24 17:30 Insulin Aspart (Novolog) 100 Unit/Ml Vial SQ ACHS KYLAH Protocol Midodrine 2.5 mg 03/20/24 17:30 Midodrine 5 Mg Tab PO BID-W/MEALS KYLAH Montelukast Sodium 10 mg 03/20/24 21:00 Montelukast 10 Mg Tab PO HS KYLAH Pantoprazole Sodium 40 mg 03/20/24 13:30 03/20/24 13:42 Pantoprazole 40 Mg/10 Ml Vial IVP 40 mg DAILY KYLAH Administration Intake and Output 03/19/24 03/20/24 03/20/24 22:59 06:59 14:59 Other: Weight 113.398 kg Patient Weight 03/21/24 06:59 Weight 113.398 kg 03/20/24 10:48 03/20/24 10:48
--- NOTE | 2024-03-20 16:10 | P.CNPUL ---
History of Present Illness Consult date: 03/20/24 Requesting physician: Natanael Rivera Jr Reason for consult: dyspnea, abnormal CXR/CT Chief complaint: Shortness of breath, edema History of present illness: This is a very pleasant 73-year-old male patient with a known history of diabetes mellitus, hyperlipidemia anemia, hypertension, clear-cell carcinoma status post right nephrectomy followed by immunotherapy, morbid obesity previously on Ozempic and lost over 100 pounds, nonischemic cardiomyopathy with an ejection fraction of 15 to 20% and had recently undergone a biventricular AICD implantation on March 01, 2024. Since that time he had been having noted increasing shortness of breath and increasing lower extremity edema. He spoke to his primary care provider who could not get him into see the valuation manager in a timely fashion and was directed here to the emergency room. Chest x-ray does show some fluid volume overload. Ultrasound of the abdomen reveals a small amount of ascites adjacent to the liver. EKG reveals ventricular pacing. White count 4.5. Hemoglobin 13.6. Platelets 172. INR 1.4. Sodium 133. Potassium 4.8. Bicarb 20. BUN 14. Creatinine 0.97. Glucose 111. proBNP 14,600. He is seen today in consultation in the emergency department. He is currently sitting up on a stretcher. Awake and alert in no acute distress. Maintaining good O2 saturation in the 90s on room air. He is afebrile. Hemodynamically stable. No chest pain. No palpitations. No worsening shortness of breath, cough or congestion. Review of Systems REVIEW OF SYSTEMS: CONSTITUTIONAL: Denies any recent significant weight loss or weight gain. EYES: Denies change in vision. EARS, NOSE, MOUTH, THROAT: Denies headaches, denies sore throat. CARDIOVASCULAR: Denies chest pain, palpitations or syncopal episodes. RESPIRATORY: Positive for shortness of breath, no cough, congestion or hemoptysis. GASTROINTESTINAL: Denies change in appetite, denies abdominal pain GENITOURINARY: Denies hematuria, denies infections. MUSKULOSKELETAL: Positive for lower extremity swelling. INTEGUMENTARY: Denies rash, denies eczema. NEUROLOGICAL: Denies recent memory loss, no recent seizure activity. PSYCHIATRIC: Denies anxiety, denies depression. HEMATOLOGIC/LYMPHATIC: Denies anemia, denies enlarged lymph nodes. 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 had Immunotherapy keytruda, had 6 doses, february 2023,hx colitis. Type II diabetic IDDM. See DR Rogers's H&P. History of Any Multi-Drug Resistant Organisms: None Reported Past Surgical History: Hernia Repair, Joint Replacement, Orthopedic Surgery Additional Past Surgical History / Comment(s): rt knee meniscus repair, left leg orif with screws, 12-22-15 total rt knee, lft hip replacement, rt and lt carpal tunnel, right nephrectomy Jan 2023. Past Anesthesia/Blood Transfusion Reactions: No Reported Reaction Additional Past Anesthesia/Blood Transfusion Reaction / Comment(s): no blood transfusion hx Past Psychological History: No Psychological Hx Reported Smoking Status: Former smoker Past Alcohol Use History: None Reported Past Drug Use History: None Reported - Past Family History Father Family Medical History: Cancer Additional Family Medical History / Comment(s): lung Mother Family Medical History: Asthma, Diabetes Mellitus Brother(s) Family Medical History: Cancer Additional Family Medical History / Comment(s): Pancreatic cancer Medications and Allergies Home Medications Medication Instructions Recorded Confirmed Type Atorvastatin [Lipitor] 10 mg PO DAILY 12/18/15 03/20/24 History Montelukast Sodium [Singulair] 10 mg PO DAILY 08/16/19 03/20/24 History Aspirin [Adult Low Dose Aspirin EC] 81 mg PO DAILY 01/05/23 03/20/24 History Empagliflozin [Jardiance] 10 mg PO DAILY 02/24/24 03/20/24 History Ivabradine HCl 5 mg PO BID-W/MEALS 02/24/24 03/20/24 History Midodrine [ProAmatine] 2.5 mg PO BID-W/MEALS 02/24/24 03/20/24 History Mesalamine [Lialda] 4.8 gm PO DAILY 03/20/24 03/20/24 History Allergies Allergy/AdvReac Type Severity Reaction Status Date / Time budesonide Allergy "I Verified 03/20/24 11:05 couldn't breathe." Penicillins Allergy "passed Verified 03/20/24 11:05 out" Physical Exam Vitals: Vital Signs Temp Pulse Resp BP Pulse Ox 03/20/24 15:41 97.3 F L 79 16 112/78 98 03/20/24 13:05 71 18 112/73 98 03/20/24 10:46 96.9 F L 75 18 106/72 97 03/20/24 10:21 97.6 F 78 20 104/67 98 Intake and Output 03/20/24 03/20/24 03/20/24 06:59 14:59 22:59 Other: Weight 113.398 kg GENERAL EXAM: Alert, active, pleasant 73-year-old male patient, on room air, comfortable in no apparent distress. HEAD: Normocephalic. EYES: Normal reaction of pupils, equal size. NOSE: Clear with pink turbinates. THROAT: No erythema or exudates. NECK: No masses, no JVD. CHEST: No chest wall deformity. LUNGS: Equal air entry with faint crackles in the posterior bases. CVS: S1 and S2 normal with no audible murmur, regular rhythm. ABDOMEN: No hepatosplenomegaly, normal bowel sounds, no guarding or rigidity. SPINE: No scoliosis or deformity SKIN: No rashes CENTRAL NERVOUS SYSTEM: No focal deficits, tone is normal in all 4 extremities. EXTREMITIES: There is 1-2+ peripheral edema. No clubbing, no cyanosis. Pe ripheral pulses are intact. Results - Laboratory Findings CBC and BMP: 03/20/24 10:48 03/20/24 10:48 PT/INR, D-dimer PT 14.8 sec (10.0-12.5) H 03/20/24 10:48 INR 1.4 (<1.2) H 03/20/24 10:48 Abnormal lab findings: Abnormal Labs 03/20/24 03/20/24 03/20/24 10:48 10:48 10:48 MCHC 29.7 L RDW 17.7 H Lymphocytes # 0.4 L PT 14.8 H INR 1.4 H Sodium 133 L Carbon Dioxide 20 L Glucose 111 H Total Bilirubin 2.4 H Albumin 3.3 L - Diagnostic Findings Chest x-ray: image reviewed Assessment and Plan Assessment: Acute exacerbation of chronic systolic congestive heart failure in a patient with a known history of nonischemic cardiomyopathy with ejection fraction 15 to 20%. proBNP 14,600 Minimal ascites adjacent to the liver Recently placed biventricular ICD on 03/01/2024 Nonischemic cardiomyopathy History of renal cell carcinoma status post right nephrectomy in January 2023 subsequent immunotherapy Diabetes mellitus Hyperlipidemia Hypertension Obesity with 100 pound weight loss utilizing Ozempic Remote history of smoking Plan: The patient was seen and evaluated Chest x-ray, labs and medications reviewed Currently stable and on room air Continue IV Lasix 40 mg every 12 hours Continue his home medications Cardiology consulted We will continue to follow and make further recommendations based on his cli nical status I have personally seen and examined the patient, performed the documentation and the assessment and plan as written. Number of minutes spent on the visit: 20 Dictation was produced using [employer] dictation software. Please excuse any grammatical, word or spelling errors. Time with Patient: Greater than 30
[2024-03-20] MEDS: BALSALAZIDE DISODIUM 750 MG CAPSULE PO SCH (17:00)
[2024-03-20 17:32] LABS: Glucose,Whole Blood 115 mg/dL (70-110)
[2024-03-20] MEDS: INSULIN ASPART (NovoLOG) 100 UNIT/ML VIAL SQ SCH (17:32)
[2024-03-20] MEDS: MIDODRINE 5 MG TAB PO SCH (18:05)
[2024-03-20] MEDS: MONTELUKAST 10 MG TAB PO SCH (20:18)
[2024-03-20 20:39] LABS: Glucose,Whole Blood 167 mg/dL (70-110)
[2024-03-21] MEDS: FUROSEMIDE 10 MG/ML 4 ML VIAL IV SCH ×2 (00:20→08:18)
[2024-03-21 06:02] LABS: Glucose,Whole Blood 79 mg/dL (70-110)
[2024-03-21] MEDS: DAPAGLIFLOZIN PROPANEDIOL 5 MG TABLET PO SCH (08:18)
[2024-03-21] MEDS: ATORVASTATIN 10 MG TAB PO SCH (08:18)
[2024-03-21] MEDS: ASPIRIN 81 MG PO SCH (08:18)
[2024-03-21 08:30] LABS: BUN/Creat Ratio 10.92 Ratio (12.00-20.00); Blood Urea Nitrogen 13.1 mg/dL (9.0-27.0); Calcium 8.6 mg/dL (8.7-10.3); Carbon Dioxide 22.1 mmol/L (21.6-31.8); Chloride 102 mmol/L (96-109); Glucose 89 mg/dL (70-110); Potassium 4.1 mmol/L (3.5-5.5); Sodium 134 mmol/L (135-145)
[2024-03-21 08:52] LABS: HCT 43.1 % (39.6-50.0); MCH 27.8 pg (27.0-32.0); MCHC 30.2 g/dL (32.0-37.0); MCV 92.3 FL (80.0-97.0); Mean Platelet Volume 10.9 FL (9.5-12.2); NRBC Per 100 WBC 0 X 10*3/uL (0.00-0.01); Platelet Count 181 X 10*3/uL (140-440); RBC 4.67 X 10*6/uL (4.40-5.60); RDW 19.5 % (11.5-14.5); WBC 4.38 X 10*3/uL (4.50-10.00)
--- NOTE | 2024-03-21 10:30 | P.PN ---
Subjective Progress Note Date: 03/21/24 Reason for Consult (text): Recent biventricular ICD implantation History of present illness: This is a 73-year-old male patient of Dr. 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 Rogers. We have been asked to evaluate the patient for recent BiV ICD implantation. Patient states that he has developed abdominal fluid and bloating and due to thi s requested that a CAT scan be done. This was done yesterday as an outpatient and found moderate bilateral pleural effusion with significant anasarca and small to moderate ascites. Patient's PCP then contacted him to come into the hospital for further evaluation. He has subsequently had ultrasound of the abdomen that showed no significant ascites to warrant safe paracentesis. Patient has been started on IV Lasix 40 mg every 12 hours. Patient denies having chest pain, lightheadedness or dizziness, no nausea or vomiting. Blood pressure 112/73, heart rate 71, pulse ox 98% on room air. -EKG: Paced rhythm -Chest x-ray: Consider volume overload or CHF. -Laboratory studies: WBC 4.5, hemoglobin 13.6. INR 1.4. Sodium 133, potassium 4.8, BUN 14 creatinine 0.97. proBNP 14,600. -Home cardiac medications: Aspirin 81 mg daily, atorvastatin 10 mg daily, Jardiance 10 mg daily, midodrine 2.5 mg twice daily. -Biventricular Medtronic ICD implantation on 03/01/[address] Rogers for nonischemic cardiomyopathy with severe heart failure and intolerance to beta- blockers, LI inhibitors and ARB's. -Echocardiogram performed in the office on 12/01/2023 revealed EF less than 20% with global LV hypokinesis. Mild left ventricular hypertrophy. Severe mitral regurgitation, moderate tricuspid regurgitation, PASP 54 mmHg. 03/21 Patient is seen today on the observation unit. He has been maintained on IV Lasix 40 mg every 12 hours. Patient has a negative fluid balance. No repeat weight obtained. Blood pressure 113/73, heart rate 80, pulse ox 99% on room air. Patient has been afebrile. Repeat blood work reveals WBC 4.3, hemoglobin 13, sodium 134, potassium 4.1, creatinine 1.2 and BUN 13. Echocardiogram is pending. Physical examination: Gen: This is a 73-year-old male in no acute distress VS: reviewed HEENT: Head is atraumatic, normocephalic. Pupils equal, round. Sclerae is anicteric. NECK: Supple. No JVD. LUNGS: Essentially clear. No intercostal retractions. HEART: Regular rate and rhythm. No murmur. ABDOMEN: Soft abdominal bloating/fluid. No tenderness. EXTREMITIES: Minimal pedal edema. No calf tenderness. NEUROLOGICAL: Patient is awake, alert and oriented x3. Assessment: Bilateral pleural effusions, ascites, anasarca Recent BiV ICD implantation on 03/01/2024 Acute on chronic systolic heart failure Nonischemic cardiomyopathy with EF less than 20% Valvular heart disease with severe mitral regurgitation, moderate tricuspid regurgitation hypertension Hyperlipidemia Diabetes mellitus type 2 Ulcerative colitis History of renal cell cancer status post nephrectomy Plan: Continue patient's home cardiac medications Continue IV Lasix 40 mg every 12 hours Monitor LOUISA, daily weight, electrolytes and renal function Obtain 2-D echocardiogram and Doppler study to assess cardiac structure and function Further recommendations to follow based upon clinical course Nurse practitioner note has been reviewed, I agree with documented findings and plan of care. Patient was seen and examined. Objective - Vital Signs Vital signs: Vital Signs Temp 97.5 F L 03/21/24 03:14 Pulse 80 03/21/24 03:14 Resp 20 03/21/24 03:14 BP 113/73 03/21/24 03:14 Pulse Ox 99 03/21/24 03:14 FiO2 Intake & Output 03/20/24 03/21/24 03/21/24 18:59 06:59 18:59 Intake Total 118 1180 Output Total 450 3275 Balance -332 -2095 Weight 113.398 kg Intake: Oral 118 1180 Output: Urine 450 3275 Other: Voiding Method Toilet - Labs CBC & Chem 7: 03/21/24 04:18 03/21/24 04:18 Labs: Abnormal Lab Results - Last 24 Hours (Table) 03/20/24 03/20/24 03/20/24 Range/Units 10:48 10:48 10:48 MCHC 29.7 L (31.0-37.0) g/dL RDW 17.7 H (11.5-15.5) % Lymphocytes # 0.4 L (1.0-4.8) k/uL PT 14.8 H (10.0-12.5) sec INR 1.4 H (<1.2) Sodium 133 L (137-145) mmol/L Carbon Dioxide 20 L (22-30) mmol/L Glucose 111 H (74-99) mg/dL POC Glucose (mg/dL) (70-110) mg/dL Total Bilirubin 2.4 H (0.2-1.3) mg/dL Albumin 3.3 L (3.5-5.0) g/dL 03/20/24 03/20/24 Range/Units 17:31 20:38 MCHC (31.0-37.0) g/dL RDW (11.5-15.5) % Lymphocytes # (1.0-4.8) k/uL PT (10.0-12.5) sec INR (<1.2) Sodium (137-145) mmol/L Carbon Dioxide (22-30) mmol/L Glucose (74-99) mg/dL POC Glucose (mg/dL) 115 H 167 H (70-110) mg/dL Total Bilirubin (0.2-1.3) mg/dL Albumin (3.5-5.0) g/dL
--- NOTE | 2024-03-21 10:47 | CA ---
Transthoracic Echo Report Name: Anselmo Lunsford Age: 73 Gender: M : 1950 Exam Date: 03/21/2024 07:29 Exam Location: [facility] Ht (in): 73 Wt (lb): 250 Ordering Physician: Ciara Ortiz Attending/Referring Phys: [employer] Field Technician Nelda Marrero RDCS Procedure CPT: Indications: lv fx Cardiac Hx: Pacemaker, defibrillator Technical Quality: Good Contrast 1: Definity Total Dose (mL): 2 Contrast 2: Total Dose (mL): MEASUREMENTS (Male / Female) Normal Values 2D ECHO LV Diastolic Diameter PLAX 6.4 cm 4.2 - 5.9 / 3.9 - 5.3 cm LV Systolic Diameter PLAX 5.9 cm IVS Diastolic Thickness 1.0 cm 0.6 - 1.0 / 0.6 - 0.9 cm LVPW Diastolic Thickness 1.0 cm 0.6 - 1.0 / 0.6 - 0.9 cm LV Relative Wall Thickness 0.3 RV Internal Dim ED PLAX 3.9 cm LVOT Diameter 1.7 cm Aortic Root Diameter 2.9 cm LA Systolic Diameter LX 4.8 cm 3.0 - 4.0 / 2.7 - 3.8 cm LV Diastolic Volume MOD BP 305.1 cm??? 67 - 155 / 56 - 104 cm??? LV Systolic Volume MOD BP 254.6 cm??? 22 - 58 / 19 - 49 cm??? LV Ejection Fraction MOD BP 16.5 % >= 55 % LV Cardiac Index MOD BP 1400.4 cm???/min???m??? LV Diastolic Volume MOD 4C 297.2 cm??? LV Systolic Volume MOD 4C 250.8 cm??? LV Ejection Fraction MOD 4C 15.6 % LV Cardiac Index MOD 4C 1289.4 cm???/min???m??? LV Diastolic Length 4C 9.7 cm LV Systolic Length 4C 9.1 cm LV Diastolic Volume MOD 2C 305.0 cm??? LV Systolic Volume MOD 2C 258.8 cm??? LV Ejection Fraction MOD 2C 15.1 % LV Cardiac Index MOD 2C 1282.0 cm???/min???m??? LV Diastolic Length 2C 10.1 cm LV Systolic Length 2C 9.2 cm LA Volume 86.1 cm??? 18 - 58 / 22 - 52 cm??? LA Volume Index 35.2 cm???/m??? 16 - 28 cm???/m??? DOPPLER MV Area PHT 5.6 cm??? MR Peak Velocity 472.0 cm/s MR Peak Gradient 89.1 mmHg Mitral E Point Velocity 71.3 cm/s Mitral A Point Velocity 29.7 cm/s Mitral E to A Ratio 2.4 MV Deceleration Time 135.0 ms TR Peak Velocity 331.5 cm/s TR Peak Gradient 44.0 mmHg Right Atrial Pressure 10.0 mmHg Pulmonary Artery Systolic Pressu 54.0 mmHg Right Ventricular Systolic Press 54.0 mmHg FINDINGS Left Ventricle Left ventricular ejection fraction is estimated at 15-20 %. Mildly increased left ventricular diastolic diameter. Severely increased left ventricular diastolic volume. Severely increased left ventricular systolic volume. Severely decreased left ventricular ejection fraction. Right Ventricle Right ventricular dilatation. Moderate to severe pulmonary hypertension. Right ventricular systolic pressure estimated at 54 mm hg. Right Atrium Right atrial dilatation. Left Atrium Moderately increased left atrial diameter. Moderately increased left atrial volume. Mildly increased left atrial area. Mitral Valve Mitral valve thickened. No mitral stenosis. [id number] mitral regurgitation. Aortic Valve Aortic valve sclerosis. Thickened aortic valve without stenosis. No aortic regurgitation. Tricuspid Valve Structurally normal tricuspid valve. [id number] tricuspid regurgitation. Pulmonic Valve Structurally normal pulmonic valve. Trace pulmonic regurgitation. Pericardium Small pericardial effusion. Large Pleural effusion. Aorta Normal size aortic root and proximal ascending aorta. CONCLUSIONS Severe LV systolic dysfunction Moderate to severe pulmonary hypertension Mild to moderate mitral regurgitation Moderate to severe tricuspid regurgitation Small pericardial effusion with large pleural effusion Previewed by: Dr. Chucky Arceo MD (Electronically Signed) Final Date: 21 March 2024 10:46
[2024-03-21 12:11] LABS: Glucose,Whole Blood 106 mg/dL (70-110)
--- NOTE | 2024-03-21 12:44 | P.PN ---
Subjective Progress Note Date: 03/21/24 H&P Date: 03/20/24 This is a 73-year-old gentleman with past medical history significant for renal cell carcinoma status post nephrectomy 02/05 status post immunotherapy, diabetes mellitus II, hearing disorder, CAD, nonischemic cardiomyopathy,recent biventricular ICD implantation 03/01/2024, hypertension, hyperlipidemia, prior nicotine dependence, ulcerative colitis and multiple other medical issues presented to the ER with complaints of shortness of breath, nonproductive cough, increasing painless abdominal swelling over the last month-first occurrence. Reports ambulating up and down his stairs at home has been increasingly difficult requiring him to rest in between his sets of stairs.denies chest pain, palpitations. Yesterday patient underwent a CT reporting increased moderate size bilateral pleural effusions with significant diffuse anasarca and small to moderate size ascites, correlate for volume overload/CHF exacerbation or. Postsurgical changes from right nephrectomy without gross evidence for recurrencelimited evaluation secondary to ascites/mesenteric edema and lack of IV contrast. Nonobstructive renal calculus. PCP attempted to schedule him for paracentesis but there is no opening until mid March so patient was instructed to proceed to the ER. Afebrile, normal WBC, 13.6, platelets 172, INR 1.4, sodium 133, potassium 4.8, bicarb 20, BUN 14 creatinine 0.97 glucose 111,,, T. bili 2.4, proBNP 14,600, albumin 3.3. Reports no urine output yet today, normal soft bowel movement this morningno diarrhea. Abdominal ultrasound reported small amount of ascites adjacent to liver, no significant amount of ascites to warrant safe ultrasound-guided paracentesis currently. Chest x-ray reports clinical consideration for volume overload or CHF. 01/18/2025 diuresed well on Lasix IV push with 24-hour LOUISA reflecting a negative fluid balance. Echo pending. Objective - Vital Signs Vital signs: Vital Signs Temp 97.5 F L 03/21/24 07:00 Pulse 97 03/21/24 07:00 Resp 16 03/21/24 07:00 BP 110/73 03/21/24 07:00 Pulse Ox 97 03/21/24 07:00 FiO2 Intake & Output 03/20/24 03/21/24 03/21/24 18:59 06:59 18:59 Intake Total 118 1180 118 Output Total 450 3275 1650 Balance -701 -7603 -4891 Weight 113.398 kg 108.771 kg Intake: Oral 118 1180 118 Output: Urine 450 3275 1650 Other: Voiding Method Toilet - Exam VITAL SIGNS: Reviewed. GENERAL: Alert and orient x 3, sitting up in bed, no acute distress HEAD:atraumatic, normal cephalic, pupils equal, round, sclera anicteric. NECK: Supple. No JVD. No lymphadenopathy HEART: Regular S1-S2, no murmur. LUNGS: Unlabored, equal air entry, essentially clear to auscultation. ABDOMEN: Soft, distended, fluid /,nontender, no rigidity, no guarding, positive bowel sounds. EXTREMITIES: Decreasing lower extremity edema. NEURO: Cranial nerves II through XII grossly intact. SKIN: Warm and dry, no rashes noted. - Labs CBC & Chem 7: 03/21/24 04:18 03/21/24 04:18 Labs: Abnormal Lab Results - Last 24 Hours (Table) 03/20/24 03/20/24 03/21/24 Range/Units 17:31 20:38 04:18 WBC (4.50-10.00) X 10*3/uL MCHC (32.0-37.0) g/dL RDW (11.5-14.5) % Sodium (135-145) mmol/L BUN/Creatinine Ratio (12.00-20.00) Ratio POC Glucose (mg/dL) 115 H 167 H (70-110) mg/dL Hemoglobin A1c 7.0 H (<=6.0) % Calcium (8.7-10.3) mg/dL 03/21/24 03/21/24 Range/Units 04:18 04:18 WBC 4.38 L (4.50-10.00) X 10*3/uL MCHC 30.2 L (32.0-37.0) g/dL RDW 19.5 H (11.5-14.5) % Sodium 134 L (135-145) mmol/L BUN/Creatinine Ratio 10.92 L (12.00-20.00) Ratio POC Glucose (mg/dL) (70-110) mg/dL Hemoglobin A1c (<=6.0) % Calcium 8.6 L (8.7-10.3) mg/dL Assessment and Plan Assessment: Bilateral pleural effusions, ascites, anasarca, reports worsening over the last month Acute on Chronic systolic CHF Recent biventricular ICD implantation 03/01/2024 Nonischemic cardiomyopathy Urinary retention, ruled out, patient spontaneously voiding and did not require Geronimo catheter. Chronic kidney disease, GFR 77, stage II, possible cardiorenal syndrome Renal cell cancer status post nephrectomy in January 2023, status post immunotherapy with Keytruda Valvular heart disease with severe mitral regurgitation and moderate tricuspid regurgitation Hypertension, history of Hyperlipidemia Diabetes mellitus type 2 Ulcerative colitis Morbid obesity, BMI 33, reports 100 pound weight loss with Ozempic prior to his onset of renal CA Osteoarthritis Former nicotine Plan: Continue on current medication regimen ,monitoring and symptomatic treatment.Cardiology recommending another 24 hours of IV push diuretics. 2D echo pending. CHF protocol, strict I&O's, daily weights-no weight obtained this morning.PT/OT. Discharge planning in progress once patient transitions to oral diuretics and cleared by cardiology. The impression and plan of care has been dictated as directed. : I performed a history and examination of this patient, discussed the same with the dictator. I agree with the dictator's note ,documented as a scribe. Any additional findings or plans will be noted.
--- NOTE | 2024-03-21 12:59 | P.CONS ---
History of Present Illness - Reason for Consult Consult date: 03/21/24 r/o IO induced cardiomyopathy Requesting physician: Ciara Ortiz - Chief Complaint SOB, abd swelling - History of Present Illness Patient is a 73 year old male with a histroy of renal cell carcinoma, who follows with Dr. Bocanegra and Dr. Monge. He initially presented with pain from kidney stones in 11/2022,he had a CT scan of abdomen on 11/17/2022 which showed 3 mm kidney stone also 6 cm right kidney mass,no evidence of mets,CT chest/abdomen on 12/20/2022,was negative for mets. On 01/13/2023,he underwent robotic right nephrectomy,pathology showed clear cell carcinoma,WHO/ISUP grade 1,6.5 x 4.7 x 3.5 cm,negative margins,extends into major vein focal tumor present into renal sinus adipose tissue,no sarcomatoid features,pT3aNx. On 02/18/2023,he started adjuvant keytruda, completeing cycle 4 on 04/22/23, treatment was subsequently stopped due to adverse persisting diarrhea, loss of appetite and weight loss. He had a repeat MRI of abdomen on 05/19/2023 which showed no evdience of recurrence. Echo in July/2023 showed EF of 15-20%, heart cath did not show any significant finding. MRI abdomen on 10/11/2023 showed no evidence of recurrence Patient presented to the emergency room for abdominal distention and shortness of breath. Patient reports over the last couple weeks has been having increased abdominal distention and was scheduled for a paracentesis outpatient but was instructed by his PCP to come to the hospital for evaluation for paracentesis. Upon admit abdominal ultrasound showing small amount of ascites adjacent to liver. Patient did have CT Abdomen without contrast on 03/19/2024 which showed increased moderate size bilateral pleural effusions with significant diffuse anasarca and small to moderate size ascites. Postsurgical changes from right nephrectomy without gross evidence for recurrence. Nonobstructive left renal calculus. Chest x-ray revaled prominent pulmonary vasculature, scattered mild increased lung markings, correlate for congestive heart failure. Echocardiogram showing ejection fraction 15 to 20% which is similar to previous echocardiogram on 07/28/2023. Patient has been started on IV Lasix, cardiology following. Review of Systems 10 point ROS is negative except as stated in the HPI Past Medical History Past Medical History: Cancer, Diabetes Mellitus, Hearing Disorder / Deafness, Hyperlipidemia, Hypertension, Osteoarthritis (OA) Additional Past Medical History / Comment(s): "I'm tired out now." "chronic cough," hx kidney stone, 2022 tumour on kidney- removed. had Immunotherapy keytruda, had 6 doses, february 2023,hx colitis. Type II diabetic IDDM. See DR Rogers's H&P. History of Any Multi-Drug Resistant Organisms: None Reported Past Surgical History: Hernia Repair, Joint Replacement, Orthopedic Surgery Additional Past Surgical History / Comment(s): rt knee meniscus repair, left leg orif with screws, 12-22-15 total rt knee, lft hip replacement, rt and lt carpal tunnel, right nephrectomy Jan 2023. Past Anesthesia/Blood Transfusion Reactions: No Reported Reaction Additional Past Anesthesia/Blood Transfusion Reaction / Comm: no blood transfusion hx Past Psychological History: No Psychological Hx Reported Smoking Status: Former smoker Past Alcohol Use History: None Reported Past Drug Use History: None Reported - Past Family History Father Family Medical History: Cancer Additional Family Medical History / Comment(s): lung Mother Family Medical History: Asthma, Diabetes Mellitus Brother(s) Family Medical History: Cancer Additional Family Medical History / Comment(s): Pancreatic cancer Medications and Allergies Home Medications Medication Instructions Recorded Confirmed Type Atorvastatin [Lipitor] 10 mg PO DAILY 12/18/15 03/20/24 History Montelukast Sodium [Singulair] 10 mg PO DAILY 08/16/19 03/20/24 History Aspirin [Adult Low Dose Aspirin EC] 81 mg PO DAILY 01/05/23 03/20/24 History Empagliflozin [Jardiance] 10 mg PO DAILY 02/24/24 03/20/24 History Ivabradine HCl 5 mg PO BID-W/MEALS 02/24/24 03/20/24 History Midodrine [ProAmatine] 2.5 mg PO BID-W/MEALS 02/24/24 03/20/24 History Mesalamine [Lialda] 4.8 gm PO DAILY 03/20/24 03/20/24 History Allergies Allergy/AdvReac Type Severity Reaction Status Date / Time budesonide Allergy "I Verified 03/20/24 11:05 couldn't breathe." Penicillins Allergy "passed Verified 03/20/24 11:05 out" Physical Exam Vitals: Vital Signs Temp Pulse Pulse Resp BP BP Pulse Ox 03/21/24 07:00 97.5 F L 97 16 110/73 97 03/21/24 03:14 97.5 F L 80 20 113/73 99 03/20/24 19:31 16 03/20/24 19:12 97.4 F L 86 17 110/76 99 03/20/24 16:18 97.4 F L 85 16 107/74 100 03/20/24 15:41 97.3 F L 79 16 112/78 98 03/20/24 13:05 71 18 112/73 98 Intake and Output 03/20/24 03/21/24 03/21/24 22:59 06:59 14:59 Intake Total 118 1180 118 Output Total 1350 2375 Balance -1232 -1195 118 Intake: Oral 118 1180 118 Output: Urine 1350 2375 Other: Voiding Method Toilet Weight 108.771 kg - Constitutional General appearance: average body habitus, no acute distress - EENT Eyes: anicteric sclerae, EOMI ENT: hearing grossly normal - Respiratory breathing is even and unlabored - Cardiovascular skin warm and dry - Gastrointestinal General gastrointestinal: distended, no tenderness - Integumentary Integumentary: no cyanotic, no jaundiced - Neurologic Neurologic: CNII-XII intact - Psychiatric Psychiatric: A&O x's 3 Results CBC & Chem 7: 03/21/24 04:18 03/21/24 04:18 Labs: Abnormal Lab Results - Last 24 Hours (Table) 03/20/24 03/20/24 03/21/24 Range/Units 17:31 20:38 04:18 WBC (4.50-10.00) X 10*3/uL MCHC (32.0-37.0) g/dL RDW (11.5-14.5) % Sodium (135-145) mmol/L BUN/Creatinine Ratio (12.00-20.00) Ratio POC Glucose (mg/dL) 115 H 167 H (70-110) mg/dL Hemoglobin A1c 7.0 H (<=6.0) % Calcium (8.7-10.3) mg/dL 03/21/24 03/21/24 Range/Units 04:18 04:18 WBC 4.38 L (4.50-10.00) X 10*3/uL MCHC 30.2 L (32.0-37.0) g/dL RDW 19.5 H (11.5-14.5) % Sodium 134 L (135-145) mmol/L BUN/Creatinine Ratio 10.92 L (12.00-20.00) Ratio POC Glucose (mg/dL) (70-110) mg/dL Hemoglobin A1c (<=6.0) % Calcium 8.6 L (8.7-10.3) mg/dL Chest x-ray: report reviewed CT scan - abdomen: report reviewed US - abdomen: report reviewed Assessment and Plan (1) CHF exacerbation Current Visit: Yes Status: Acute Priority: High Code(s): I50.9 - HEART FAILURE, UNSPECIFIED SNOMED Code(s): 952499757 (2) Congestive heart failure Current Visit: Yes Status: Acute Priority: High Code(s): I50.9 - HEART FAILURE, UNSPECIFIED SNOMED Code(s): 81990442 (3) Renal cell carcinoma Current Visit: No Status: Acute Priority: Medium Code(s): C64.9 - MALIGNANT NEOPLASM OF UNSP KIDNEY, EXCEPT RENAL PELVIS SNOMED Code(s): 691272003 Plan: RCC: -Oncology history as dicated in the the HPI -Started adjuvant keytruda on 02/18/23, completing cycle 4 on 04/22/23, treatment was subsequently stopped due to persisting diarrhea, loss of appetite and weight loss. -MRI abdomen on 10/11/2023 showed no evidence of recurrence -CT abdomen without contrast on 03/19/2024 which showed increased moderate size bilateral pleural effusions with significant diffuse anasarca and small to moderate size ascites. Postsurgical changes from right nephrectomy without gross evidence for recurrence. -Clinic f/u scheduled with Dr. Bocanegra on 04/04/24 CHF: Presented c/o abdominal distention and shortness of breath. Patient reports over the last couple weeks has been having increased abdominal distention and was scheduled for a paracentesis outpatient but was instructed by his PCP to come to the hospital for evaluation for paracentesis. -Upon admit abdominal ultrasound showing small amount of ascites adjacent to liver. -Chest x-ray revaled prominent pulmonary vasculature, scattered mild increased lung markings, correlate for congestive heart failure. -Echocardiogram showing ejection fraction 15 to 20%, which is similar to previous echocardiogram on 07/28/2023 which similarly showed EF of 15-20%, heart cath at that time did not show any significant finding. -Patient has been started on IV Lasix, cardiology following -Incidence of immunotherapy induced cardiomyopathy is very rare, typically seen in less than 1% of patients, with most typical cardiac adverse event being myocarditis. Making IO induced cardiomyopathy less likely, however, there is no baseline echocardiogram prior to initiating treatment, so this is difficult to ascertain for certain, but based on the rare incidence of this, further workup should be considered to r/o other etiologies for noted heart failure
--- NOTE | 2024-03-21 13:35 | P.PN ---
Subjective Progress Note Date: 03/21/24 This is a very pleasant 73-year-old male patient with a known history of diabetes mellitus, hyperlipidemia anemia, hypertension, clear-cell carcinoma status post right nephrectomy followed by immunotherapy, morbid obesity previously on Ozempic and lost over 100 pounds, nonischemic cardiomyopathy with an ejection fraction of 15 to 20% and had recently undergone a biventricular AICD implantation on March 01, 2024. Since that time he had been having noted increasing shortness of breath and increasing lower extremity edema. He spoke to his primary care provider who could not get him into see the rn rehabilitation in a timely fashion and was directed here to the emergency room. Chest x-ray does show some fluid volume overload. Ultrasound of the abdomen reveals a small amount of ascites adjacent to the liver. EKG reveals ventricular pacing. White count 4.5. Hemoglobin 13.6. Platelets 172. INR 1.4. Sodium 133. Potassium 4.8. Bicarb 20. BUN 14. Creatinine 0.97. Glucose 111. proBNP 14,600. He is seen today in consultation in the emergency department. He is currently sitting up on a stretcher. Awake and alert in no acute distress. Maintaining good O2 saturation in the 90s on room air. He is afebrile. Hemodynamically stable. No chest pain. No palpitations. No worsening shortness of breath, cough or congestion. The patient is seen today March 21, 2024 in follow-up on the regular medical floor. He is currently resting comfortably in bed. Awake and alert in no acute distress. Maintaining good O2 saturations in the 90s on room air. He is diuresing well. White count 4.3. Hemoglobin 13.0. Platelets 181. Sodium 134. Potassium 4.1. Bicarb 22. BUN 13. Creatinine 1.2. Glucose 89. Remains on Lasix 40 mg IV every 12 hours. Currently in a -1.5 L balance. Echocardiogram reveals severely impaired left ventricular systolic function with an ejection fraction of 15 to 20%. Severe pulmonary hypertension. Objective - Vital Signs Vital signs: Vital Signs Temp 97.5 F L 03/21/24 07:00 Pulse 97 03/21/24 07:00 Resp 16 03/21/24 07:00 BP 110/73 03/21/24 07:00 Pulse Ox 97 03/21/24 07:00 FiO2 Intake & Output 03/20/24 03/21/24 03/21/24 18:59 06:59 18:59 Intake Total 118 1180 118 Output Total 450 3275 1650 Balance -196 -8778 -1594 Weight 113.398 kg 108.771 kg Intake: Oral 118 1180 118 Output: Urine 450 3275 1650 Other: Voiding Method Toilet - Exam GENERAL EXAM: Alert, 73-year-old male patient, resting in bed, on room air, in no apparent distress. HEAD: Normocephalic. EYES: Normal reaction of pupils, equal size. NOSE: Clear with pink turbinates. THROAT: No erythema or exudates. NECK: No masses, no JVD. CHEST: No chest wall deformity. LUNGS: Equal air entry with faint crackles in the posterior bases. CVS: S1 and S2 normal with no audible murmur, regular rhythm. ABDOMEN: No hepatosplenomegaly, normal bowel sounds, no guarding or rigidity. SPINE: No scoliosis or deformity SKIN: No rashes CENTRAL NERVOUS SYSTEM: No focal deficits, tone is normal in all 4 extremities. EXTREMITIES: There is 1-2+ peripheral edema. No clubbing, no cyanosis. Peripheral pulses are intact. - Labs CBC & Chem 7: 03/21/24 04:18 03/21/24 04:18 Labs: Abnormal Lab Results - Last 24 Hours (Table) 03/20/24 03/20/24 03/21/24 Range/Units 17:31 20:38 04:18 WBC (4.50-10.00) X 10*3/uL MCHC (32.0-37.0) g/dL RDW (11.5-14.5) % Sodium (135-145) mmol/L BUN/Creatinine Ratio (12.00-20.00) Ratio POC Glucose (mg/dL) 115 H 167 H (70-110) mg/dL Hemoglobin A1c 7.0 H (<=6.0) % Calcium (8.7-10.3) mg/dL 03/21/24 03/21/24 Range/Units 04:18 04:18 WBC 4.38 L (4.50-10.00) X 10*3/uL MCHC 30.2 L (32.0-37.0) g/dL RDW 19.5 H (11.5-14.5) % Sodium 134 L (135-145) mmol/L BUN/Creatinine Ratio 10.92 L (12.00-20.00) Ratio POC Glucose (mg/dL) (70-110) mg/dL Hemoglobin A1c (<=6.0) % Calcium 8.6 L (8.7-10.3) mg/dL Assessment and Plan Assessment: Acute exacerbation of chronic systolic congestive heart failure in a patient with a known history of nonischemic cardiomyopathy with ejection fraction 15 to 20%. proBNP 14,600 Minimal ascites adjacent to the liver Recently placed biventricular ICD on 03/01/2024 Nonischemic cardiomyopathy History of renal cell carcinoma status post right nephrectomy in January 2023 subsequent immunotherapy Diabetes mellitus Hyperlipidemia Hypertension Obesity with 100 pound weight loss utilizing [employer] history of smoking Plan: The patient was seen and evaluated Echocardiogram, labs and medications reviewed Currently stable and on room air Continue IV Lasix Follow-up chest x-ray in a.m. We will continue to follow I have personally seen and examined the patient, performed the documentation and the assessment and plan as written. Number of minutes spent on the visit: 10 Dictation was produced using [employer] dictation software. Please excuse any grammatical, word or spelling errors.
[2024-03-21 14:36] VITALS: BMI 31.6
[2024-03-21 17:20] LABS: Glucose,Whole Blood 111 mg/dL (70-110)
[2024-03-21 20:19] LABS: Glucose,Whole Blood 100 mg/dL (70-110)
[2024-03-22 02:27] LABS: Glucose,Whole Blood 153 mg/dL (70-110)
[2024-03-22 05:47] LABS: Glucose,Whole Blood 112 mg/dL (70-110)
[2024-03-22] MEDS: PANTOPRAZOLE 40 MG TABLET PO SCH (06:19)
--- NOTE | 2024-03-22 08:09 | XR ---
EXAMINATION TYPE: XR chest 1V portable DATE OF EXAM: 03/22/2024 8:02 AM COMPARISON: 03/20/2024 CLINICAL INDICATION: Male, 73 years old with history of CHF, TECHNIQUE: XR chest 1V portable views of the chest are obtained. FINDINGS: Demonstrated are scattered senescent parenchymal change. There is a probable skin fold overlying the right upper lung. There is also lucency at the right lung base laterally which could reflect addition al skin fold. Consider repeat examination to exclude pneumothorax. There is no evidence for focal infiltrate. The heart is stable. Hilar and mediastinal structures are within normal limits. Dual-lead Pacer is in place. Degenerative changes are seen of the dorsal spine. IMPRESSION: 1. There is a probable skin fold overlying the right upper lung. There is also lucency at the right lung base laterally which could reflect additional skin fold. Consider repeat examination to exclude pneumothorax. [facility], , 03/22/2024 8:07 AM
[2024-03-22 08:11] VITALS: BP 102/52; PULSE 86; RESP 17; TEMP 97.4
[2024-03-22 10:42] LABS: BUN/Creat Ratio 11.25 Ratio (12.00-20.00); Blood Urea Nitrogen 13.5 mg/dL (9.0-27.0); Calcium 8.5 mg/dL (8.7-10.3); Carbon Dioxide 24.6 mmol/L (21.6-31.8); Chloride 99 mmol/L (96-109); Glucose 103 mg/dL (70-110); Potassium 3.7 mmol/L (3.5-5.5); Sodium 135 mmol/L (135-145)
[2024-03-22 12:09] LABS: Glucose,Whole Blood 100 mg/dL (70-110)
--- NOTE | 2024-03-22 12:42 | P.PN ---
Subjective Progress Note Date: 03/22/24 This is a very pleasant 73-year-old male patient with a known history of diabetes mellitus, hyperlipidemia anemia, hypertension, clear-cell carcinoma status post right nephrectomy followed by immunotherapy, morbid obesity previously on Ozempic and lost over 100 pounds, nonischemic cardiomyopathy with an ejection fraction of 15 to 20% and had recently undergone a biventricular AICD implantation on March 01, 2024. Since that time he had been having noted increasing shortness of breath and increasing lower extremity edema. He spoke to his primary care provider who could not get him into see the health [facility] in a timely fashion and was directed here to the emergency room. Chest x-ray does show some fluid volume overload. Ultrasound of the abdomen reveals a small amount of ascites adjacent to the liver. EKG reveals ventricular pacing. White count 4.5. Hemoglobin 13.6. Platelets 172. INR 1.4. Sodium 133. Potassium 4.8. Bicarb 20. BUN 14. Creatinine 0.97. Glucose 111. proBNP 14,600. He is seen today in consultation in the emergency department. He is currently sitting up on a stretcher. Awake and alert in no acute distress. Maintaining good O2 saturation in the 90s on room air. He is afebrile. Hemodynamically stable. No chest pain. No palpitations. No worsening shortness of breath, cough or congestion. The patient is seen today March 21, 2024 in follow-up on the regular medical floor. He is currently resting comfortably in bed. Awake and alert in no acute distress. Maintaining good O2 saturations in the 90s on room air. He is diuresing well. White count 4.3. Hemoglobin 13.0. Platelets 181. Sodium 134. Potassium 4.1. Bicarb 22. BUN 13. Creatinine 1.2. Glucose 89. Remains on Lasix 40 mg IV every 12 hours. Currently in a -1.5 L balance. Echocardiogram reveals severely impaired left ventricular systolic function with an ejection fraction of 15 to 20%. Severe pulmonary hypertension. The patient is seen today March 22, 2024 in follow-up on the regular medical floor. He is awake and alert in no acute distress. Resting comfortably in bed. Denies any worsening shortness of breath, cough or congestion. Maintaining good O2 saturations in the 90s on room air. To diurese well. Currently in a - 1.7 L balance. Sodium 135. Potassium 3.7. Bicarb 25. BUN 14. Creatinine 1.2. Glucose 103. He remains on IV diuretics. Objective - Vital Signs Vital signs: Vital Signs Temp 97.4 F L 03/22/24 07:00 Pulse 86 03/22/24 07:00 Resp 17 03/22/24 07:00 BP 102/52 03/22/24 07:00 Pulse Ox 98 03/22/24 07:00 FiO2 Intake & Output 03/21/24 03/22/24 03/22/24 18:59 06:59 18:59 Intake Total 354 540 118 Output Total 3150 2800 800 Balance -2796 -2260 -682 Weight 108.771 kg 107.5 kg Intake: Oral 354 540 118 Output: Urine 3150 2800 800 - Exam GENERAL EXAM: Alert, very pleasant 73-year-old male patient, on room air, in no apparent distress. HEAD: Normocephalic. EYES: Normal reaction of pupils, equal size. NOSE: Clear with pink turbinates. THROAT: No erythema or exudates. NECK: No masses, no JVD. CHEST: No chest wall deformity. LUNGS: Equal air entry with no crackles, wheeze or dullness. CVS: S1 and S2 normal with no audible murmur, regular rhythm. ABDOMEN: No hepatosplenomegaly, normal bowel sounds, no guarding or rigidity. SPINE: No scoliosis or deformity SKIN: No rashes CENTRAL NERVOUS SYSTEM: No focal deficits, tone is normal in all 4 extremities. EXTREMITIES: There is no peripheral edema. No clubbing, no cyanosis. Peripheral pulses are intact. - Labs CBC & Chem 7: 03/21/24 04:18 03/22/24 06:39 Labs: Abnormal Lab Results - Last 24 Hours (Table) 03/21/24 03/22/24 03/22/24 Range/Units 17:19 02:26 05:43 BUN/Creatinine Ratio (12.00-20.00) Ratio POC Glucose (mg/dL) 111 H 153 H 112 H (70-110) mg/dL Calcium (8.7-10.3) mg/dL 03/22/24 Range/Units 06:39 BUN/Creatinine Ratio 11.25 L (12.00-20.00) Ratio POC Glucose (mg/dL) (70-110) mg/dL Calcium 8.5 L (8.7-10.3) mg/dL Assessment and Plan Assessment: Acute exacerbation of chronic systolic congestive heart failure in a patient with a known history of nonischemic cardiomyopathy with ejection fraction 15 to 20%. proBNP 14,600 Minimal ascites adjacent to the liver Recently placed biventricular ICD on 03/01/2024 Nonischemic cardiomyopathy History of renal cell carcinoma status post right nephrectomy in January 2023 subsequent immunotherapy Diabetes mellitus Hyperlipidemia Hypertension Obesity with 100 pound weight loss utilizing Ozempic Remote history of smoking Plan: The patient was seen and evaluated Chest x-ray, labs and medications reviewed Currently stable and on room air Cleared for discharge once cleared by cardiology This patient was seen and evaluated by the pulmonary nurse practitioner addressing pulmonary issues I have personally seen and examined the patient, performed the documentation and the assessment and plan as written. Number of minutes spent on the visit: 24 Dictation was produced using [employer] dictation software. Please excuse any grammatical, word or spelling errors.
--- NOTE | 2024-03-22 14:23 | P.PN ---
Subjective Progress Note Date: 03/22/24 Reason for Consult (text): Recent biventricular ICD implantation History of present illness: This is a 73-year-old male patient of Dr. De Oliveira with past medical history of hypertension, hyperlipidemia, diabetes mellitus type 2, ulcerative colitis, renal cell cancer status post nephrectomy in January 2023, nonischemic cardiomyopathy status post ICD implantation on 03/01/[address] Rogers. We have been asked to evaluate the patient for recent BiV ICD implantation. Patient states that he has developed abdominal fluid and bloating and due to this requested that a CAT scan be done. This was done yesterday as an outpatient and found moderate bilateral pleural effusion with significant anasarca and small to moderate ascites. Patient's PCP then contacted him to come into the hospital for further evaluation. He has subsequently had ultrasound of the abdomen that showed no significant ascites to warrant safe paracentesis. Patient has been started on IV Lasix 40 mg every 12 hours. Patient denies having chest pain, lightheadedness or dizziness, no nausea or vomiting. Blood pressure 112/73, heart rate 71, pulse ox 98% on room air. -EKG: Paced rhythm -Chest x-ray: Consider volume overload or CHF. -Laboratory studies: WBC 4.5, hemoglobin 13.6. INR 1.4. Sodium 133, potassium 4.8, BUN 14 creatinine 0.97. proBNP 14,600. -Home cardiac medications: Aspirin 81 mg daily, atorvastatin 10 mg daily, Jardiance 10 mg daily, midodrine 2.5 mg twice daily. -Biventricular [employer] ICD implantation on 03/01/[address] Rogers for nonischemic cardiomyopathy with severe heart failure and intolerance to beta- blockers, LI inhibitors and ARB's. -Echocardiogram performed in the office on 12/01/2023 revealed EF less than 20% with global LV hypokinesis. Mild left ventricular hypertrophy. Severe mitral regurgitation, moderate tricuspid regurgitation, PASP 54 mmHg. 03/21 Patient is seen today on the observation unit. He has been maintained on IV Lasix 40 mg every 12 hours. Patient has a negative fluid balance. No repeat weight obtained. Blood pressure 113/73, heart rate 80, pulse ox 99% on room air. Patient has been afebrile. Repeat blood work reveals WBC 4.3, hemoglobin 13, sodium 134, potassium 4.1, creatinine 1.2 and BUN 13. Echocardiogram is pending. 03/22 Patient seen and examined. Patient does have documented weight loss. E chocardiogram reveals severe LV systolic dysfunction with EF 15 to 20%, moderate to severe pulmonary hypertension, mild to moderate mitral regurgitation, moderate to severe tricuspid regurgitation, small pericardial effusion with large pleural effusion. Blood pressure this morning 102/52, heart rate 86. He has been maintained on IV Lasix which will be transitioned to oral. Physical examination: Gen: This is a 73-year-old male in no acute distress VS: reviewed HEENT: Head is atraumatic, normocephalic. Pupils equal, round. Sclerae is anicteric. NECK: Supple. No JVD. LUNGS: Essentially clear. No intercostal retractions. HEART: Regular rate and rhythm. No murmur. ABDOMEN: Soft abdominal bloating/fluid. No tenderness. EXTREMITIES: Minimal pedal edema. No calf tenderness. NEUROLOGICAL: Patient is awake, alert and oriented x3. Assessment: Bilateral pleural effusions, ascites, anasarca Recent BiV ICD implantation on 03/01/2024 Acute on chronic systolic heart failure Nonischemic cardiomyopathy with EF less than 20% Valvular heart disease with severe mitral regurgitation, moderate tricuspid regurgitation hypertension Hyperlipidemia Diabetes mellitus type 2 Ulcerative colitis History of renal cell cancer status post nephrectomy Plan: Continue patient's home cardiac medications Transition IV Lasix to oral 40 mg twice daily for home Patient is cleared for discharge from cardiology and will follow-up in the office with Dr. De Oliveira in 1 week. Nurse practitioner note has been reviewed, I agree with documented findings and plan of care. Patient was seen and examined. Objective - Vital Signs Vital signs: Vital Signs Temp 97.4 F L 03/22/24 07:00 Pulse 86 03/22/24 07:00 Resp 17 03/22/24 07:00 BP 102/52 03/22/24 07:00 Pulse Ox 98 03/22/24 07:00 FiO2 Intake & Output 03/21/24 03/22/24 03/22/24 18:59 06:59 18:59 Intake Total 354 540 Output Total 3150 2800 Balance -4219 -2004 Weight 108.771 kg 107.5 kg Intake: Oral 354 540 Output: Urine 3150 2800 - Labs CBC & Chem 7: 03/21/24 04:18 03/22/24 06:39 Labs: Abnormal Lab Results - Last 24 Hours (Table) 03/21/24 03/21/24 03/21/24 Range/Units 04:18 04:18 04:18 WBC 4.38 L (4.50-10.00) X 10*3/uL MCHC 30.2 L (32.0-37.0) g/dL RDW 19.5 H (11.5-14.5) % Sodium 134 L (135-145) mmol/L BUN/Creatinine Ratio 10.92 L (12.00-20.00) Ratio POC Glucose (mg/dL) (70-110) mg/dL Hemoglobin A1c 7.0 H (<=6.0) % Calcium 8.6 L (8.7-10.3) mg/dL 03/21/24 03/22/24 03/22/24 Range/Units 17:19 02:26 05:43 WBC (4.50-10.00) X 10*3/uL MCHC (32.0-37.0) g/dL RDW (11.5-14.5) % Sodium (135-145) mmol/L BUN/Creatinine Ratio (12.00-20.00) Ratio POC Glucose (mg/dL) 111 H 153 H 112 H (70-110) mg/dL Hemoglobin A1c (<=6.0) % Calcium (8.7-10.3) mg/dL
--- NOTE | 2024-03-23 14:10 | P.DS ---
Providers Date of admission: 03/20/24 13:40 Expected date of discharge: 03/23/24 Attending physician: Natanael Rivera Consults: 03/20/24 12:50 Consult Physician Routine Consulting Provider: Jennifer Alexander Consult Reason/Comments: bilateral pleural effusions Do you want consulting provider notified?: Yes 03/20/24 13:14 Consult Physician Routine Consulting Provider: Sharad Rogers Consult Reason/Comments: Recent biventricular ICD implantation, CHF Do you want consulting provider notified?: Yes 03/20/24 14:33 Consult Physician Routine Consulting Provider: Briana Bocanegra Consult Reason/Comments: cardiomyopathy, S/P immunotherapy Do you want consulting provider notified?: Yes Primary care physician: [facility] Course: Final Diagnoses: Bilateral pleural effusions, ascites, anasarca, reports worsening over the last month Acute on Chronic systolic CHF Recent biventricular ICD implantation 03/01/2024 Nonischemic cardiomyopathy with EF 15 to 20% Moderate to severe Ruben hypertension Urinary retention, ruled out, patient spontaneously voiding and did not require Geronimo catheter. Chronic kidney disease, GFR 77, stage II, possible cardiorenal syndrome Renal cell cancer status post nephrectomy in January 2023, status post immunotherapy with Keytruda Valvular heart disease with severe mitral regurgitation and moderate tricuspid regurgitation Hypertension, history of Hyperlipidemia Diabetes mellitus type 2 Ulcerative colitis Morbid obesity, BMI 33, reports 100 pound weight loss with Ozempic prior to his onset of renal CA Osteoarthritis Former nicotine Hospital course:This is a 73-year-old gentleman with past medical history significant for renal cell carcinoma status post nephrectomy 02/05 status post immunotherapy, diabetes mellitus II, hearing disorder, CAD, nonischemic cardiomyopathy,recent biventricular ICD implantation 03/01/2024, hypertension, hyperlipidemia, prior nicotine dependence, ulcerative colitis and multiple other medical issues presented to the ER with complaints of shortness of breath, nonproductive cough, increasing painless abdominal swelling over the last month- first occurrence. Reports ambulating up and down his stairs at home has been increasingly difficult requiring him to rest in between his sets of stairs.denies chest pain, palpitations. Yesterday patient underwent a CT reporting increased moderate size bilateral pleural effusions with significant diffuse anasarca and small to moderate size ascites, correlate for volume overload/CHF exacerbation or. Postsurgical changes from right nephrectomy without gross evidence for recurrencelimited evaluation secondary to ascites/mesenteric edema and lack of IV contrast. Nonobstructive renal calculus. PCP attempted to schedule him for paracentesis but there is no opening until mid March so patient was instructed to proceed to the ER. Afebrile, normal WBC, 13.6, platelets 172, INR 1.4, sodium 133, potassium 4.8, bicarb 20, BUN 14 creatinine 0.97 glucose 111,,, T. bili 2.4, proBNP 14,600, albumin 3.3. Reports no urine output yet today, normal soft bowel movement this morningno diarrhea. Abdominal ultrasound reported small amount of ascites adjacent to liver, no significant amount of ascites to warrant safe ultrasound-guided paracentesis currently. Chest x-ray reports clinical consideration for volume overload or CHF. 01/18/2025 diuresed well on Lasix IV push with 24-hour LOUISA reflecting a negative fluid balance. Echo pending. Cardiology recommending another 24 hours of IV push diuretics. 2D echo pending. CHF protocol, strict I&O's, daily weights-no weight obtained this morning.PT/OT. Discharge planning in progress once patient transitions to oral diuretics and cleared by cardiology. 01/19/25 Echocardiogram reported severe LV systolic dysfunction with EF 15 to 20%, moderate to severe pulmonary hypertension, mild to moderate mitral regurgitation, moderate to severe tricuspid regurgitation, small pericardial effusion with large pleural effusion. Blood pressures soft, BUN 13.5, creatinine 1.2, GFR 63. Transitioned to oral diuretics. patient has been cleared by cardiology for discharge on Lasix 40 twice daily. Close monitoring of blood pressures, electrolytes and renal function outpatient. Cleared by pulmonary for discharge. Patient will be discharged home today in a stable condition with guarded prognosis. The impression and plan of care has been dictated as directed. : I performed a history and examination of this patient, discussed the same with the dictator. I agree with the dictator's note ,documented as a scribe. Any additional findings or plans will be noted. Patient Condition at Discharge: Stable Plan - Discharge Summary Discharge Rx Participant: No New Discharge Prescriptions: New Furosemide [Lasix] 40 mg PO BID #60 tablet Potassium Chloride ER [K-Dur 20] 20 meq PO DAILY #30 tab Continue Atorvastatin [Lipitor] 10 mg PO DAILY Montelukast Sodium [Singulair] 10 mg PO DAILY Aspirin [Adult Low Dose Aspirin EC] 81 mg PO DAILY Empagliflozin [Jardiance] 10 mg PO DAILY Midodrine [ProAmatine] 2.5 mg PO BID-W/MEALS Mesalamine [Lialda] 4.8 gm PO DAILY Discontinued Ivabradine HCl 5 mg PO BID-W/MEALS Discharge Medication List Atorvastatin [Lipitor] 10 mg PO DAILY 12/18/15 [History] Montelukast Sodium [Singulair] 10 mg PO DAILY 08/16/19 [History] Aspirin [Adult Low Dose Aspirin EC] 81 mg PO DAILY 01/05/23 [History] Empagliflozin [Jardiance] 10 mg PO DAILY 02/24/24 [History] Midodrine [ProAmatine] 2.5 mg PO BID-W/MEALS 02/24/24 [History] Mesalamine [Lialda] 4.8 gm PO DAILY 03/20/24 [History] Furosemide [Lasix] 40 mg PO BID #60 tablet 03/22/24 [Rx] Potassium Chloride ER [K-Dur 20] 20 meq PO DAILY #30 tab 03/22/24 [Rx] Follow up Appointment(s)/Referral(s): Natanael Rivera Jr, DO [Primary Care Provider] - 1-2 days Evan De Oliveira DO [STAFF PHYSICIAN] - 04/02/24 10:15 am Ambulatory/Diagnostic Orders: Basic Metabolic Panel [LAB.AMB] Time Frame: 3 Days, Location: None Selected Patient Instructions/Handouts: Heart Failure (DC) Activity/Diet/Wound Care/Special Instructions: Ivabradine on hold, blood pressures soft ,reevaluate in office with Dr. De Oliveira. Discharge Disposition: HOME SELF-CARE
== END 2024-03-22 13:41 | disposition home or self-care (01) ==
LOC: EC 09:54 → OBSVTOIN 13:40 → INTOOBSV 13:40 → 6NMEDSUR 13:40
PROVIDERS: ADMIT Family Medicine; ATTEND Family Medicine
DX: I13.0 Hypertensive heart and chronic kidney disease with heart failure and stage 1 through stage 4 chronic kidney disease, or unspecified chronic kidney disease (principal); I50.23 Acute on chronic systolic (congestive) heart failure; N18.2 Chronic kidney disease, stage 2 (mild); E11.22 Type 2 diabetes mellitus with diabetic chronic kidney disease; R33.9 Retention of urine, unspecified; E78.5 Hyperlipidemia, unspecified; I42.8 Other cardiomyopathies; I08.1 Rheumatic disorders of both mitral and tricuspid valves; K51.90 Ulcerative colitis, unspecified, without complications; I25.10 Atherosclerotic heart disease of native coronary artery without angina pectoris; M19.90 Unspecified osteoarthritis, unspecified site; E66.01 Morbid (severe) obesity due to excess calories; Z68.31 Body mass index [BMI] 31.0-31.9, adult; Z85.528 Personal history of other malignant neoplasm of kidney; Z87.891 Personal history of nicotine dependence; Z90.5 Acquired absence of kidney; Z95.810 Presence of automatic (implantable) cardiac defibrillator; Z79.82 Long term (current) use of aspirin; Z79.84 Long term (current) use of oral hypoglycemic drugs; Z79.899 Other long term (current) drug therapy; Z88.0 Allergy status to penicillin
CPT/HCPCS: 96376 ×2; 96374; 96375; 99291; 36415; 93005; 93306; 83880; 80053; 80048 ×2; 85025; 85027; 85610; 85730; 83036; 71045; 71046; 76705; G0378 ×3; J1940 ×3; Q9957; J2470 ×2; 99285

== ENCOUNTER → 2024-03-23 | Outpatient (CLI) | payer MEDICARE ==
[2024-03-23 19:42] LABS: Blood Urea Nitrogen 13.8 mg/dL (9.0-27.0); Calcium 8.9 mg/dL (8.7-10.3); Carbon Dioxide 26.4 mmol/L (21.6-31.8); Chloride 98 mmol/L (96-109); Glucose 156 mg/dL (70-110); Potassium 4.2 mmol/L (3.5-5.5); Sodium 136 mmol/L (135-145)
[2024-03-23 19:49] LABS: HCT 44.1 % (39.6-50.0); HGB 13.6 g/dL (13.0-17.0); MCHC 30.8 g/dL (32.0-37.0); MCV 90.9 FL (80.0-97.0); Mean Platelet Volume 10.9 FL (9.5-12.2); NRBC Per 100 WBC 0 X 10*3/uL (0.00-0.01); Platelet Count 178 X 10*3/uL (140-440); RBC 4.85 X 10*6/uL (4.40-5.60); RDW 19.7 % (11.5-14.5); WBC 4.33 X 10*3/uL (4.50-10.00)
== END | disposition home or self-care (01) ==
LOC: LABWHC1 14:00
PROVIDERS: ATTEND Nurse Practitioner
DX: I50.9 Heart failure, unspecified (principal); N18.2 Chronic kidney disease, stage 2 (mild)
CPT/HCPCS: 36415; 80048; 85027

== ENCOUNTER → 2024-04-19 | Outpatient (CLI) | payer MEDICARE ==
--- NOTE | 2024-04-19 12:43 | XR ---
EXAMINATION TYPE: XR chest 2V DATE OF EXAM: 04/19/2024 12:23 PM COMPARISON: Chest radiographs from03/22/2024 CLINICAL INDICATION: Male, 73 years old with history of I50; [facility] TECHNIQUE: XR chest 2V Frontal and lateral views of the chest. FINDINGS: Lungs/Pleura: There is no evidence of pleural effusion, focal consolidation, or pneumothorax. Pulmonary vascularity: Unremarkable. Heart/mediastinum: Cardiomediastinal silhouette is unremarkable. Three lead cardiac conduction device overlying the left hemithorax with lead tips projecting over the right ventricle, right atrium and c oronary sinus. Musculoskeletal: No acute osseous pathology. Other findings: None Lines/Tubes: IMPRESSION: No acute cardiopulmonary disease/process. [facility], , 04/19/2024 12:40 PM
== END | disposition home or self-care (01) ==
LOC: RADXRMAIN 12:08
PROVIDERS: ATTEND Internal Medicine
DX: I50.22 Chronic systolic (congestive) heart failure (principal)
CPT/HCPCS: 71046

== ENCOUNTER → 2024-06-22 | Outpatient (CLI) | payer MEDICARE ==
[2024-06-22 16:54] LABS: ALT 31 U/L (10-49); AST 46 U/L (14-35); BUN/Creat Ratio 23.36 Ratio (12.00-20.00); Blood Urea Nitrogen 58.4 mg/dL (9.0-27.0); Calcium 8.8 mg/dL (8.7-10.3); Carbon Dioxide 19.5 mmol/L (21.6-31.8); Chloride 95 mmol/L (96-109); Glucose 93 mg/dL (70-110); Potassium 4.7 mmol/L (3.5-5.5); Sodium 128 mmol/L (135-145)
[2024-06-25 09:18] LABS: NT-Pro-B-Type Natriuretic Pept 32615 (0-450)
== END | disposition home or self-care (01) ==
LOC: LABWHC1 10:25
PROVIDERS: ATTEND Nurse Practitioner Acute Care
DX: I50.22 Chronic systolic (congestive) heart failure (principal)
CPT/HCPCS: 36415; 80048; 83880; 84443; 84450; 84460

== ENCOUNTER → 2024-07-16 | Outpatient (CLI) | payer MEDICARE ==
[2024-07-16 15:11] LABS: HCT 32.7 % (39.6-50.0); HGB 10.7 g/dL (13.0-17.0); MCH 30.7 pg (27.0-32.0); MCHC 32.7 g/dL (32.0-37.0); Mean Platelet Volume 10.8 FL (9.5-12.2); NRBC Per 100 WBC 0 X 10*3/uL (0.00-0.01); Platelet Count 274 X 10*3/uL (140-440); RBC 3.48 X 10*6/uL (4.40-5.60); WBC 4.64 X 10*3/uL (4.50-10.00)
== END | disposition home or self-care (01) ==
LOC: LABWHC1 11:09
PROVIDERS: ATTEND Nurse Practitioner
DX: I50.22 Chronic systolic (congestive) heart failure (principal); N17.0 Acute kidney failure with tubular necrosis; E87.1 Hypo-osmolality and hyponatremia
CPT/HCPCS: 36415; 83735; 85027

== ENCOUNTER 2024-08-11 13:06 | Emergency (ER) | payer MEDICARE ==
[2024-08-11 13:15] VITALS: TEMP 98.4
--- NOTE | 2024-08-11 13:57 | ED ---
Weakness HPI - General Chief complaint: Weakness Stated complaint: Weakness Time Seen by Provider: 08/11/24 13:15 Source: patient, EMS Mode of arrival: EMS - History of Present Illness Initial comments: 74-year-old male with past medical history of single kidney due to renal cell cancer, hyperlipidemia, advanced heart disease with an EF of 20% who presents to the emergency department with altered mental status. Family is at bed and provides history. Patient was hospitalized from June 24 through July 12. He was here for CHF exacerbation. He was diuresed using Zaroxolyn, Bumex and Aldactone. Family states that he was doing well. He did not qualify for rehab and was discharged home. For the first 2 weeks the patient did well. They now state that the patient has been weak and not getting out of bed. The past 2 days have been significantly worse where the patient is urinating and defecating on himself. He has had unresponsive periods. He cannot ambulate on his own at all and he is not eating much. Patient denies chest pain. No shortness of breath. No vomiting. The patient was seen in December for an LVAD consultation however patient did not want to proceed at that time. The states that the patient has been eating blended ice cream for each meal in an attempt to help him gain weight. They deny a diagnosis of diabetes They admit to falls. Patient has some bruising under his left eye and therefore they state he must have hit his head at some point. He does take Eliquis Last hospitalization he did require 2 paracenteses - Related Data Home Medications Medication Instructions Recorded Confirmed Atorvastatin [Lipitor] 10 mg PO DAILY 12/18/15 06/24/24 Montelukast Sodium [Singulair] 10 mg PO DAILY 08/16/19 06/24/24 Midodrine [ProAmatine] 5 mg PO DAILY 02/24/24 06/24/24 Mesalamine [Lialda] 2.4 gm PO BID 03/20/24 06/24/24 Amiodarone [Cordarone] 200 mg PO DAILY 06/24/24 06/24/24 Apixaban [Eliquis] 5 mg PO BID 06/24/24 06/24/24 Ivabradine HCl [Corlanor] 5 mg PO BID 06/24/24 06/24/24 Previous Rx's Medication Instructions Recorded Acetaminophen Tab [Tylenol] 650 mg PO Q6HR PRN tab 07/12/24 Bumetanide [BUMEX] 2 mg PO BID@0900,1600 #120 tab 07/12/24 Dapagliflozin Propanediol [Farxiga] 5 mg PO DAILY #30 tab 07/12/24 Docusate [Colace] 100 mg PO BID cap 07/12/24 Nitroglycerin Sl Tabs [Nitrostat] 0.4 mg SUBLINGUAL Q5M PRN #100 tab 07/12/24 Nystatin 100,000 Unit/gm Powd 1 applic TOPICAL BID each 07/12/24 [Mycostatin Powder] Sodium Chloride 0.65% Nasal [Deep 2 spray NASAL Q1H PRN ml 07/12/24 Sea (Saline)] Spironolactone [Aldactone] 50 mg PO DAILY #60 tab 07/12/24 metOLazone [Zaroxolyn] 2.5 mg PO DAILY #30 tab 07/12/24 Allergies Allergy/AdvReac Type Severity Reaction Status Date / Time budesonide Allergy "I Verified 08/11/24 13:15 couldn't breathe." Penicillins Allergy "passed Verified 08/11/24 13:15 out" Review of Systems ROS Statement: Those systems with pertinent positive or pertinent negative responses have been documented in the HPI. ROS Other: All systems not noted in ROS Statement are negative. Past Medical History Past Medical History: Cancer, Hearing Disorder / Deafness, Hyperlipidemia, Hypertension, Osteoarthritis (OA) Additional Past Medical History / Comment(s): kidney stone, renal cancer post nephrectomy and surgery was done 2022 had Immunotherapy keytruda, had 6 doses, february 2023. hx colitis. History of Any Multi-Drug Resistant Organisms: None Reported Past Surgical History: Hernia Repair, Joint Replacement, Orthopedic Surgery Additional Past Surgical History / Comment(s): rt knee meniscus repair, left leg orif with screws, 12-22-15 total rt knee, lft hip replacement, rt and lt carpal tunnel, right nephrectomy Jan 2023. Past Anesthesia/Blood Transfusion Reactions: No Reported Reaction Additional Past Anesthesia/Blood Transfusion Reaction / Comment(s): no blood transfusion hx Past Psychological History: No Psychological Hx Reported Smoking Status: Former smoker Past Alcohol Use History: None Reported Past Drug Use History: None Reported - Past Family History Father Family Medical History: Cancer Additional Family Medical History / Comment(s): lung Mother Family Medical History: Asthma, Diabetes Mellitus Brother(s) Family Medical History: Cancer Additional Family Medical History / Comment(s): Pancreatic cancer General Exam Limitations: altered mental status General appearance: lethargic Head exam: Present: atraumatic, normocephalic, normal inspection Eye exam: Present: normal appearance, PERRL, EOMI, other (Ecchymosis around left eye). Absent: scleral icterus, conjunctival injection, periorbital swelling ENT exam: Present: mucous membranes dry Neck exam: Present: normal inspection. Absent: tenderness, meningismus, lymphadenopathy Respiratory exam: Present: normal lung sounds bilaterally. Absent: respiratory distress, wheezes, rales, rhonchi, stridor Cardiovascular Exam: Present: regular rate, normal rhythm, normal heart sounds. Absent: systolic murmur, diastolic murmur, rubs, gallop, clicks GI/Abdominal exam: Present: soft, normal bowel sounds. Absent: distended, tenderness, guarding, rebound, rigid Extremities exam: Present: normal inspection, full ROM, normal capillary refill. Absent: tenderness, pedal edema, joint swelling, calf tenderness Course Vital Signs 08/11/24 08/11/24 08/11/24 13:11 13:26 14:27 Temperature 98.4 F Pulse Rate 63 63 62 Respiratory 18 16 18 Rate Blood Pressure 106/58 93/62 110/62 O2 Sat by Pulse 100 99 95 Oximetry 08/11/24 08/11/24 16:05 17:18 Temperature Pulse Rate 62 60 Respiratory 18 18 Rate Blood Pressure 87/53 101/62 O2 Sat by Pulse 98 98 Oximetry Medical Decision Making - Medical Decision Making Was pt. sent in by a medical professional or institution (, PA, HOUSE MOVER, urgent care, hospital, or senior care...) When possible be specific @ -No Did you speak to anyone other than the patient for history (EMS, parent, family, police, friend...)? What history was obtained from this source @ -I spoke with EMS, the and the son for history Did you review nursing and triage notes (agree or disagree)? Why? @ -I reviewed and agree with nursing and triage notes Were old charts reviewed (outside hosp., previous admission, EMS record, old EKG, old radiological studies, urgent care reports/EKG's, senior care records)? Report findings @ -I reviewed the admission charting from June 24 through the Differential Diagnosis (chest pain, altered mental status, abdominal pain women, abdominal pain men, vaginal bleeding, weakness, fever, dyspnea, syncope, headache, dizziness, GI bleed, back pain, seizure, CVA, palpatations, mental health, musculoskeletal)? @ -Differential Altered Mental Status: Hypoglycemia, DKA, hypercapnia, ETOH, overdose, CO poisoning, trauma, myxedema coma, HTN encephalopathy, infection, encephalitis, psychosis, intercranial hemorrhage, hepatic encephalopathy, meningitis, CVA, this is not meant to be an all-inclusive list EKG interpreted by me (3pts min.). @ -Yes and demonstrates ventricular pacemaker with a rate of 64. NV interval 224. QRS 124. QTc of 473. No acute ST segment elevations or depressions X-rays interpreted by me (1pt min.). @ -Yes which demonstrates no acute process CT interpreted by me (1pt min.). @ -Yes which demonstrates no acute process U/S interpreted by me (1pt. min.). @ -None done What testing was considered but not performed or refused? (CT, X-rays, U/S, labs)? Why? @ -None What meds were considered but not given or refused? Why? @ -None Did you discuss the management of the patient with other professionals (pro fessionals i.e. , PA, HOUSE MOVER, lab, RT, psych nurse, social science instructor, heel brusher, teacher, privacy officer, director of casework services)? Give summary @ -Spoke with Dr. Rivera who refused the admission due to the patient having a GI bleed Was smoking cessation discussed for >3mins.? @ -No Was critical care preformed (if so, how long)? @ -No Were there social determinants of health that impacted care today? How? (Homel essness, low income, unemployed, alcoholism, drug addiction, transportation, low edu. Level, literacy, decrease access to med. care, prison, rehab)? @ -No Was there de-escalation of care discussed even if they declined (Discuss DNR or withdrawal of care, Hospice)? DNR status @ -No What co-morbidities impacted this encounter? (DM, HTN, Smoking, COPD, CAD, Cancer, CVA, ARF, Chemo, Hep., AIDS, mental health diagnosis, sleep apnea, morbid obesity)? @ -Congestive heart failure, single kidney due to renal cell cancer history Was patient admitted / discharged? Hospital course, mention meds given and route, prescriptions, significant lab abnormalities, going to OR and other pertinent info. @ -Upon arrival patient seen and evaluated in bed 19. Thorough history and physical exam was performed. Patient placed on continuous pulse ox and cardiac monitoring. Patient is lethargic however is oriented. I did review the patient's chart. IV was established and laboratory studies are conducted. Janes doherty has significant lab abnormalities including a BUN of 193. Creatinine of 2.7, previous of 2.1. Glucose of 463. Sodium of 118. BNP is 20,000 however this is improved form 1 the month ago. Patient is having incontinence and therefore we did change his briefs. We found a significant pool of bright red blood per rectum in the patient's brief. I called and spoke with the admitting physician. He states that he previously recommended hospice to the patient however family adamantly wants care. He states that since we do not have GI services available, that the patient should be transferred as he is having GI bleeding. Family does request [facility]. I did provide the patient with a 500 cc bolus of normal saline with repeat sodium pending. He does also receive a dose of Reglan 10 mg and acetaminophen 1000 mg for his sacral wound. Patient will be transferred in stable condition with a guarded prognosis Undiagnosed new problem with uncertain prognosis? @ -No Drug Therapy requiring intensive monitoring for toxicity (Heparin, Nitro, Insulin, Cardizem)? @ -No Were any procedures done? @ -No Diagnosis/symptom? @ -Acute encephalopathy, acute kidney injury, prerenal azotemia, acute hyponatremia, history of congestive heart failure with recent diuresis Acute, or Chronic, or Acute on Chronic? @ -Acute on chronic Uncomplicated (without systemic symptoms) or Complicated (systemic symptoms)? @ -Complicated Side effects of treatment? @ -No Exacerbation, Progression, or Severe Exacerbation? @ -No Poses a threat to life or bodily function? How? (Chest pain, [place], [place], pneumonia, PE, COPD, DKA, ARF, appy, cholecystitis, CVA, Diverticulitis, Homicidal, Suicidal, threat to staff... and all critical care pts) @ -Yes as patient has significant lab abnormalities - Lab Data Result diagrams: 08/11/24 14:06 08/11/24 14:06 Lab Results 08/11/24 08/11/24 08/11/24 Range/Units 14:06 14:06 14:06 WBC 9.71 (4.50-10.00) 10*3/uL RBC 3.37 L (4.40-5.60) 10*6/uL Hgb 11.0 L (13.0-17.0) g/dL Hct 29.7 L (39.6-50.0) % MCV 88.1 (80.0-97.0) fL MCH 32.6 H (27.0-32.0) pg MCHC 37.0 (32.0-37.0) g/dL Plt Count 296 (140-440) 10*3/uL MPV 10.0 (9.5-12.2) fL Immature Gran % (Auto) 0.4 % Neutrophils % 91.3 % Lymphocytes % 2.2 % Monocytes % 5.9 % Eosinophils % 0.1 % Basophils % 0.1 % Immature Gran # 0.04 (0.00-0.04) 10*3/uL Neutrophils # 8.87 H (1.80-7.70) 10*3/uL Lymphocytes # 0.21 L (0.90-5.00) 10*3/uL Monocytes # 0.57 (0.20-1.00) 10*3/uL Eosinophils # 0.01 L (0.04-0.35) 10*3/uL Basophils # 0.01 (0.00-0.10) 10*3/uL PT 12.7 H (10.0-12.5) sec INR 1.2 H (<1.2) APTT 26.4 (22.0-30.0) sec Sodium 118 L* (137-145) mmol/L Potassium 3.9 (3.5-5.1) mmol/L Chloride 74 L* (98-107) mmol/L Carbon Dioxide 21 L (22-30) mmol/L Anion Gap 23 mmol/L BUN 193 H* (9-20) mg/dL Creatinine 2.77 H (0.66-1.25) mg/dL Est GFR (CKD-EPI)AfAm 25 (>60 ml/min/1.73 sqM) Est GFR (CKD-EPI)NonAf 21 (>60 ml/min/1.73 sqM) Glucose 436 H (74-99) mg/dL POC Glucose (mg/dL) (70-110) mg/dL POC Glu Research Chef ID Lactic Ac Sepsis Rflx Plasma Lactic Acid Panda (0.7-2.0) mmol/L Calcium 9.4 (8.4-10.2) mg/dL Magnesium 2.8 H (1.6-2.3) mg/dL Total Bilirubin 1.5 H (0.2-1.3) mg/dL AST 30 (17-59) U/L ALT 40 (4-49) U/L Alkaline Phosphatase 127 H (38-126) U/L Troponin I (0.000-0.034) ng/mL NT-Pro-B Natriuret Pep 08913 pg/mL Total Protein 8.0 (6.3-8.2) g/dL Albumin 4.1 (3.5-5.0) g/dL Urine Color Urine Appearance (Clear) Urine pH (5.0-8.0) Ur Specific [place] (1.001-1.035) Urine Protein (Negative) Urine Glucose (UA) (Negative) Urine Ketones (Negative) Urine Blood (Negative) Urine Nitrite (Negative) Urine Bilirubin (Negative) Urine Urobilinogen (<2.0) mg/dL Ur Leukocyte Esterase (Negative) Stool Occult Blood (Negative) 08/11/24 08/11/24 08/11/24 Range/Units 14:06 14:06 14:56 WBC (4.50-10.00) 10*3/uL RBC (4.40-5.60) 10*6/uL Hgb (13.0-17.0) g/dL Hct (39.6-50.0) % MCV (80.0-97.0) fL MCH (27.0-32.0) pg MCHC (32.0-37.0) g/dL Plt Count (140-440) 10*3/uL MPV (9.5-12.2) fL Immature Gran % (Auto) % Neutrophils % % Lymphocytes % % Monocytes % % Eosinophils % % Basophils % % Immature Gran # (0.00-0.04) 10*3/uL Neutrophils # (1.80-7.70) 10*3/uL Lymphocytes # (0.90-5.00) 10*3/uL Monocytes # (0.20-1.00) 10*3/uL Eosinophils # (0.04-0.35) 10*3/uL Basophils # (0.00-0.10) 10*3/uL PT (10.0-12.5) sec INR (<1.2) APTT (22.0-30.0) sec Sodium (137-145) mmol/L Potassium (3.5-5.1) mmol/L Chloride (98-107) mmol/L Carbon Dioxide (22-30) mmol/L Anion Gap mmol/L BUN (9-20) mg/dL Creatinine (0.66-1.25) mg/dL Est GFR (CKD-EPI)AfAm (>60 ml/min/1.73 sqM) Est GFR (CKD-EPI)NonAf (>60 ml/min/1.73 sqM) Glucose (74-99) mg/dL POC Glucose (mg/dL) (70-110) mg/dL POC Glu Research Chef ID Lactic Ac Sepsis Rflx Plasma Lactic Acid Panda 2.2 H* (0.7-2.0) mmol/L Calcium (8.4-10.2) mg/dL Magnesium (1.6-2.3) mg/dL Total Bilirubin (0.2-1.3) mg/dL AST (17-59) U/L ALT (4-49) U/L Alkaline Phosphatase (38-126) U/L Troponin I 0.096 H* (0.000-0.034) ng/mL NT-Pro-B Natriuret Pep pg/mL Total Protein (6.3-8.2) g/dL Albumin (3.5-5.0) g/dL Urine Color Urine Appearance (Clear) Urine pH (5.0-8.0) Ur Specific [place] (1.001-1.035) Urine Protein (Negative) Urine Glucose (UA) (Negative) Urine Ketones (Negative) Urine Blood (Negative) Urine Nitrite (Negative) Urine Bilirubin (Negative) Urine Urobilinogen (<2.0) mg/dL Ur Leukocyte Esterase (Negative) Stool Occult Blood Positive (Negative) 08/11/24 08/11/24 08/11/24 Range/Units 15:18 15:31 16:01 WBC (4.50-10.00) 10*3/uL RBC (4.40-5.60) 10*6/uL Hgb (13.0-17.0) g/dL Hct (39.6-50.0) % MCV (80.0-97.0) fL MCH (27.0-32.0) pg MCHC (32.0-37.0) g/dL Plt Count (140-440) 10*3/uL MPV (9.5-12.2) fL Immature Gran % (Auto) % Neutrophils % % Lymphocytes % % Monocytes % % Eosinophils % % Basophils % % Immature Gran # (0.00-0.04) 10*3/uL Neutrophils # (1.80-7.70) 10*3/uL Lymphocytes # (0.90-5.00) 10*3/uL Monocytes # (0.20-1.00) 10*3/uL Eosinophils # (0.04-0.35) 10*3/uL Basophils # (0.00-0.10) 10*3/uL PT (10.0-12.5) sec INR (<1.2) APTT (22.0-30.0) sec Sodium (137-145) mmol/L Potassium (3.5-5.1) mmol/L Chloride (98-107) mmol/L Carbon Dioxide (22-30) mmol/L Anion Gap mmol/L BUN (9-20) mg/dL Creatinine (0.66-1.25) mg/dL Est GFR (CKD-EPI)AfAm (>60 ml/min/1.73 sqM) Est GFR (CKD-EPI)NonAf (>60 ml/min/1.73 sqM) Glucose (74-99) mg/dL POC Glucose (mg/dL) 502 H* (70-110) mg/dL POC Glu Research Chef ID Thierno Brownlee Lactic Ac Sepsis Rflx Y Plasma Lactic Acid Panda (0.7-2.0) mmol/L Calcium (8.4-10.2) mg/dL Magnesium (1.6-2.3) mg/dL Total Bilirubin (0.2-1.3) mg/dL AST (17-59) U/L ALT (4-49) U/L Alkaline Phosphatase (38-126) U/L Troponin I (0.000-0.034) ng/mL NT-Pro-B Natriuret Pep pg/mL Total Protein (6.3-8.2) g/dL Albumin (3.5-5.0) g/dL Urine Color Light Yellow Urine Appearance Clear (Clear) Urine pH 5.5 (5.0-8.0) Ur Specific [place] 1.011 (1.001-1.035) Urine Protein Negative (Negative) Urine Glucose (UA) 3+ H (Negative) Urine Ketones Negative (Negative) Urine Blood Negative (Negative) Urine Nitrite Negative (Negative) Urine Bilirubin Negative (Negative) Urine Urobilinogen <2.0 (<2.0) mg/dL Ur Leukocyte Esterase Negative (Negative) Stool Occult Blood (Negative) Disposition Clinical Impression: Congestive heart failure, Acute kidney failure, Prerenal azotemia, Hyponatremia, Hyperglycemia, Encephalopathy acute Disposition: OTHER INSTITUTION NOT DEFINED Condition: Serious Is patient prescribed a controlled substance at d/c from ED?: No Referrals: Natanael Rivera Jr, [Primary Care Provider] - 1-2 days Time of Disposition: 18:05 - Out of Hospital Transfer - Req. Specs Out of Hospital Transfer - Requested Specifics: Other Emergency Center ([facility]
[2024-08-11 14:31] VITALS: RESP 18
[2024-08-11 14:34] LABS: Basophils # (A) 0.01 10*3/uL (0.00-0.10); Basophils % (A) 0.1 %; Eosinophils # (A) 0.01 10*3/uL (0.04-0.35); Eosinophils % (A) 0.1 %; HCT 29.7 % (39.6-50.0); Lymphocytes # (A) 0.21 10*3/uL (0.90-5.00); Lymphocytes % (A) 2.2 %; MCH 32.6 pg (27.0-32.0); MCV 88.1 fL (80.0-97.0); Monocytes # (A) 0.57 10*3/uL (0.20-1.00); Monocytes % (A) 5.9 %; Neutrophils # (A) 8.87 10*3/uL (1.80-7.70); Neutrophils % (A) 91.3 %; Platelet Count 296 10*3/uL (140-440); RBC 3.37 10*6/uL (4.40-5.60); RDW 16.4 % (11.5-14.5); WBC 9.71 10*3/uL (4.50-10.00)
[2024-08-11 14:43] LABS: ALT 40 U/L (4-49); AST 30 U/L (17-59); African American GFR (CKD) 25 (>60 ml/min/1.73 sqM); Albumin 4.1 g/dL (3.5-5.0); Alkaline Phosphatase 127 U/L (38-126); Anion Gap 23 mmol/L; Calcium 9.4 mg/dL (8.4-10.2); Carbon Dioxide 21 mmol/L (22-30); Glucose 436 mg/dL (74-99); INR 1.2 (<1.2); Magnesium 2.8 mg/dL (1.6-2.3); Non-African American GFR(CKD) 21 (>60 ml/min/1.73 sqM); Partial Thromboplastin Time 26.4 sec (22.0-30.0); Potassium 3.9 mmol/L (3.5-5.1); Prothrombin Time 12.7 sec (10.0-12.5); Total Bilirubin 1.5 mg/dL (0.2-1.3)
[2024-08-11 14:50] LABS: NT-Pro-B-Type Natriuretic Pept 20600 pg/mL
--- NOTE | 2024-08-11 15:13 | XR ---
EXAMINATION TYPE: XR chest 2V DATE OF EXAM: 08/11/2024 2:25 PM COMPARISON: Chest radiographs from 07/04/2024. CLINICAL INDICATION: Male, 74 years old with history of Weakness; [facility] TECHNIQUE: XR chest 2V Frontal and lateral views of the chest. FINDINGS: Lungs/Pleura: There is no evidence of pleural effusion, focal consolidation, or pneumothorax. Pulmonary vascularity: Unremarkable. Heart/mediastinum: Cardiomediastinal silhouette is unremarkable. Three lead cardiac conduction device overlying the left hemithorax with lead tips projecting over the right ventricle, right atrium and c oronary sinus. Musculoskeletal: No acute osseous pathology. Other findings: None IMPRESSION: No acute cardiopulmonary disease/process. [facility], , 08/11/2024 3:11 PM
[2024-08-11 15:21] LABS: Blood Urea Nitrogen 193 mg/dL (9-20); Chloride 74 mmol/L (98-107); Sodium 118 mmol/L (137-145)
--- NOTE | 2024-08-11 15:25 | CT ---
EXAMINATION TYPE: CT brain cspine wo con DATE OF EXAM: 08/11/2024 2:36 PM COMPARISON: None CLINICAL INDICATION: Male, 74 years old with history of fall on anticoagulation, confusion; FALL ON T HINNERS, pain TECHNIQUE: Brain: Multiple axial CT images of the brain were obtained without IV contrast. Cspine: Axial CT images from the skull base to the inferior aspect of T2 we obtained without intraven ous contrast. Coronal and sagittal reformatted images were also reviewed. . CT DLP: 1371 mGycm, Automated exposure control for dose reduction was used. FINDINGS: Brain: Extra-axial spaces: No abnormal extra-axial fluid collections. Ventricular system: Dilatation in proportion to cerebral atrophy. Cerebral parenchyma: Cerebral atrophy. No acute intraparenchymal hemorrhage or mass effect. The hood -white junction is well differentiated. Scattered hypoattenuating areas are seen within the white mat ter. Cerebellum: Unremarkable. Right cerebellar hemisphere remote injury Mass effect: No evidence of midline shift. Intracranial vasculature: Atherosclerotic calcifications of the intracranial vessels. Soft tissues: Normal. Calvarium/osseous structures: No depressed skull fracture. Paranasal sinuses and mastoid air cells: Clear. Visualized orbits: Orbital contents are intact. Cervical spine: Fracture: None. Osseous structures: Multilevel degenerative disc disease changes with endplate spurring and disc oste ophyte complex's. Vertebral alignment: Within normal limits. Spinal canal/Neural Foramina: Disc osteophyte complexes at C5-C6 and C6-C7. With at least mild spinal canal stenosis. Facet joint uncovertebral joint arthropathy scattered throughout the cervical spine with varying degrees of neural foraminal stenosis. Neck soft tissues: Prevertebral soft tissues are within normal limits. Other: The airway is patent. Right upper lobe groundglass nodule measuring 10 mm 6 mm groundglass pul monary nodule is also seen more anteriorly. IMPRESSION: 1. No acute intracranial process. 2. Nonspecific white matter changes, likely secondary to chronic small vessel ischemic disease. 3. Remote right cerebellar hemisphere injury. 4. No evidence of cervical spine fracture. 5. Mild moderate to severe multilevel degenerative disc disease. 6. Right upper lung ground glass pulmonary nodules. Consider outpatient CT chest low-dose lung yearl y for surveillance. [facility], , 08/11/2024 3:23 PM
[2024-08-11 15:40] LABS: Appearance,Urine Clear (Clear); Bilirubin,Urine Negative (Negative); Blood,Urine Negative (Negative); Color,Urine Light Yellow; Glucose,Urine (UA) 3+ (Negative); Ketones,Urine Negative (Negative); Leukocyte Esterase,Urine Negative (Negative); Nitrite,Urine Negative (Negative); PH, Urine 5.5 (5.0-8.0); Protein,Urine Negative (Negative); Specific Gravity,Urine 1.011 (1.001-1.035); Urobilinogen,Urine <2.0 mg/dL (<2.0)
[2024-08-11 16:03] LABS: Glucose,Whole Blood 502 mg/dL (70-110)
[2024-08-11 17:19] VITALS: BP 101/62; PULSE 60
[2024-08-11] MEDS ORDERED: ACETAMINOPHEN IV (For NPO) 1,000 MG in EMPTY BAG 1 BAG IVPB STA (17:19)
[2024-08-11] MEDS: METOCLOPRAMIDE 5 MG/ML 2 ML VIAL IVP STA (17:43)
[2024-08-11] MEDS: SODIUM CHLORIDE 0.9% 500 ML 500 ML IV ONE (17:43)
== END 2024-08-11 18:16 | disposition other institution (70) ==
LOC: EC 13:06
DX: G93.40 Encephalopathy, unspecified (principal); I11.0 Hypertensive heart disease with heart failure; N17.9 Acute kidney failure, unspecified; I50.9 Heart failure, unspecified; R73.9 Hyperglycemia, unspecified; Z87.891 Personal history of nicotine dependence; Z88.0 Allergy status to penicillin; Z88.8 Allergy status to other drugs, medicaments and biological substances
CPT/HCPCS: 36415; 93005; 83880; 80053; 83605; 83735; 84484; 85025; 85610; 85730; 82272; 81003; 71046; 72125; 70450; 99285; 96374; 96361; J2765

== ENCOUNTER → 2024-09-13 | Outpatient (CLI) | payer MEDICARE ==
--- NOTE | 2024-09-13 13:52 | CT ---
CT chest with contrast. HISTORY: Pulmonary nodule. COMPARISON: CTA chest dated 10/12/2017. TECHNIQUE: Multiple axial images were obtained through the thorax following the uneventful administra tion of nonionic IV contrast material. FINDINGS: There are scattered groundglass opacities predominantly within the upper lobes. There is a moderate right pleural effusion and small left pleural effusion. There is moderate to marked cardiomegaly. Cardiac pacemaker. There is no mediastinal, hilar or axilla ry adenopathy. Limited scanning of the upper abdomen reveals no gross abnormality.. No focal osseous lesions are seen. IMPRESSION: IMPRESSION: 1. Bilateral pleural effusions, moderate on the right and small on the left. 2. Multiple scattered small groundglass opacities predominantly in the upper lobes. This is a nonspec ific finding and could represent pulmonary edema particularly given the presence of cardiomegaly and pleural effusions. However this could represent an infectious process such as Covid or other infectio us etiology. [facility], , 09/13/2024 1:50 PM
== END | disposition home or self-care (01) ==
LOC: RADCTMAIN 12:07
PROVIDERS: ATTEND Internal Medicine Critical Care Medicine
DX: R91.8 Other nonspecific abnormal finding of lung field (principal); J90 Pleural effusion, not elsewhere classified; I51.7 Cardiomegaly
CPT/HCPCS: 71260; Q9967